=== PATIENT | male | born 1935 | race Caucasian/White ===

== ENCOUNTER 2019-10-02 15:51 | Inpatient (IN) | payer OTHER, MEDICARE ==
--- NOTE | 2019-10-02 16:32 | RADIOLOGY REPORT (SQ) ---
EXAM DESCRIPTION: CHEST SINGLE VIEW COMPLETED DATE/TIME: 10/02/2019 4:14 pm REASON FOR STUDY: bed 16 db COMPARISON: 05/25/2009 EXAM PARAMETERS: NUMBER OF VIEWS: One view. TECHNIQUE: Single frontal radiographic view of the chest acquired. RADIATION DOSE: NA LIMITATIONS: None. FINDINGS: LUNGS AND PLEURA: Right pleural effusion. MEDIASTINUM AND HILAR STRUCTURES: No masses. Contour normal. HEART AND VASCULAR STRUCTURES: Cardiomegaly. No sudeep pulmonary edema. BONES: No acute findings. HARDWARE: None in the chest. OTHER: No other significant finding. IMPRESSION: Cardiomegaly without pulmonary edema. Small right pleural effusion. TECHNICAL DOCUMENTATION: JOB ID: [id number] [employer]- All Rights Reserved Reading location - IP/workstation name: [email or web address]
[2019-10-02] MEDS ORDERED: DILTIAZEM HCL INJ 25 MG/5 ML VIAL IV ONE ×2 (16:38→17:49)
--- NOTE | 2019-10-02 16:42 | ER Document Report ---
ED Respiratory Problem - General Chief Complaint: Breathing Difficulty Stated Complaint: SHORTNESS OF BREATH Time Seen by Provider: 10/02/19 16:24 Mode of Arrival: Medic Information source: Patient Notes: Mr. Sepulveda is a 84 yo m w/ PMH atrial fibrillation diagnosed in the past few months brought in by EMS for shortness of breath. Patient states that his shortness of breath has been ongoing over the past 2 to 4 weeks but worsening. He states just leaning forward to turn his fan on or minimal walking between his bedroom in the kitchen will cause him severe respiratory distress. He states he is currently taking p.o. aspirin only for his atrial fibrillation which was only recently diagnosed. His last stress test was over a year ago. He denies any chest pain. He denies any cough to me however he did endorse EMS that he has been spitting up pink frothy sputum. Patient denies any fevers or chills. He denies any abdominal pain, nausea or vomiting. He does endorse some intermitt ent dizziness. Per EMS, the patient is supposed to be on Eliquis however he has been noncompliant. Patient states he takes 2 aspirins daily and a multivitamin. He is unclear whether it is a baby aspirin or full dose. He denies any other medical problems. Patient endorses lower extremity edema that is been going on and unchanged over the past several months. He denies any orthopnea. Per nurs e, on EMSs arrival, the patient was 76% on room air. TRAVEL OUTSIDE OF THE [place] IN LAST 30 DAYS: No - Related Data Allergies/Adverse Reactions: No Known Allergies Allergy (Unverified 04/12/15 11:16) Past Medical History - General Information source: Patient - Social History Smoking Status: Former Smoker Family History: Reviewed & Not Pertinent - Past Medical History Cardiac Medical History: Reports: Hx Atrial Fibrillation Denies: Hx Heart Attack, Hx Hypertension Pulmonary Medical History: Denies: Hx Asthma Neurological Medical History: Denies: Hx Cerebrovascular Accident, Hx Seizures Renal/ Medical History: Denies: Hx Peritoneal Dialysis GI Medical History: Denies: Hx Hepatitis, Hx Hiatal Hernia, Hx Ulcer Infectious Medical History: Denies: Hx Hepatitis Past Surgical History: Denies: Hx Open Heart Surgery, Hx Pacemaker Review of Systems - Review of Systems Constitutional: See HPI EENT: No symptoms reported Cardiovascular: See HPI Respiratory: See HPI Gastrointestinal: No symptoms reported Genitourinary: No symptoms reported Male Genitourinary: No symptoms reported Musculoskeletal: No symptoms reported Skin: No symptoms reported Hematologic/Lymphatic: No symptoms reported Neurological/Psychological: No symptoms reported Physical Exam - Vital signs Vitals: Temp Resp BP Pulse Ox 97.7 F 21 H 110/85 96 10/02/19 16:03 10/02/19 16:03 10/02/19 16:03 10/02/19 16:03 Interpretation: Tachycardic, Tachypneic - General General appearance: Appears well, Alert - HEENT Head: Normocephalic, Atraumatic Eyes: Normal Pupils: PERRL - Respiratory Respiratory status: No respiratory distress Chest status: Nontender Breath sounds: Normal Chest palpation: Normal - Cardiovascular Rhythm: Regular Heart sounds: Normal auscultation Murmur: No - Abdominal Inspection: Normal Distension: No distension Bowel sounds: Normal Tenderness: Nontender Organomegaly: No organomegaly - Back Back: Normal, Nontender - Extremities General upper extremity: Normal inspection, Nontender, Normal color, Normal ROM, Normal temperature General lower extremity: Normal inspection, Nontender, Normal color, Normal ROM, Normal temperature, Normal weight bearing. No: Cody's sign - Neurological Neuro grossly intact: Yes Cognition: Normal Orientation: AAOx4 Sha Coma Scale Eye Opening: Spontaneous Sha Coma Scale Verbal: Oriented Reserve Coma Scale Motor: Obeys Commands Sha Coma Scale Total: 15 Speech: Normal Motor strength normal: LUE, RUE, LLE, RLE Sensory: Normal - Psychological Associated symptoms: Normal affect, Normal mood - Skin Skin Temperature: Warm - Cool bilateral hands and feet. Normal cap refill and pulses. Skin Moisture: Dry Skin Color: Normal Location of irregularity: Extremities Character of irregularity: Symmetric Irregularity with: Swelling - 2+ pitting edema bilaterally to the knee. 3+ to dorsal foot and ankle. No warmth, erythema or induration appreciated. Course - Re-evaluation Re-evalutation: Patient is generally well-appearing nontoxic. Initial vitals notable for tachycardia as well as tachypnea. Differential diagnosis includes atrial fibrillation with RVR, dehydration, electrolyte abnormality, CHF exacerbation, volume overload, ACS 10/02/19 16:54 Patient ordered for diltiazem 10 mg IV push for atrial fibrillation with RVR. 10/02/19 17:00 Given patient's lower extremity edema, patient likely needs further diuresis, e specially with a complaint of frothy pink sputum production at home and increased dyspnea with exertion. 10/02/19 17:30 Troponin is positive at 0.78. He has not taken any aspirin today. Patient ord ered for full dose chewable aspirin here in the ED. Patient also appears clinically volume overloaded with lower extremity edema and cardiomegaly on chest x-ray. Patient ordered for Lasix 20 mg IV push as he is Lasix aisha. Patient's CK and CK-MB are both slightly elevated. Patient also has an elevated total bili and direct bili. This is all likely related to third spacing. Patient has probably been in A. fib with RVR ongoing for the past 2 weeks. Patient ordered for second dose of diltiazem. 10/02/19 17:[address] Odell, would like Dr. Cain consulted. 10/02/19 18:00 Dr. Cain is aware of the patient. States he is noncompliant with medications. Recommended the patient be initiated on a diltiazem drip should the second dose diltiazem not be sufficient. Spoke to Dr. Odell. Will admit to [facility], [place]. - Vital Signs Vital signs: Temp Pulse Resp BP Pulse Ox 97.7 F 127 H 21 H 110/85 96 10/02/19 16:39 10/02/19 18:04 10/02/19 16:39 10/02/19 16:39 10/02/19 16:39 - Laboratory Result Diagrams: 10/02/19 16:24 10/02/19 16:24 Laboratory results interpreted by me: 10/02/19 10/02/19 10/02/19 16:24 16:24 16:24 Hgb 10.8 L Hct 36.2 L MCV 76 L MCH 22.5 L MCHC 29.7 L RDW 19.8 H Seg Neuts % (Manual) 92 H Lymphocytes % (Manual) 4 L Abs Neuts (Manual) 8.9 H Abs Lymphs (Manual) 0.4 L Potassium 5.6 H Carbon Dioxide 20 L BUN 37 H Creatinine 1.33 H Est GFR (MDRD) Non-Af 51 L Total Bilirubin 3.8 H Direct Bilirubin 1.3 H AST 673 H Creatine Kinase 241 H CK-MB (CK-2) 12.10 H NT-Pro-B Natriuret Pep 10/02/19 16:24 Hgb Hct MCV MCH MCHC RDW Seg Neuts % (Manual) Lymphocytes % (Manual) Abs Neuts (Manual) Abs Lymphs (Manual) Potassium Carbon Dioxide BUN Creatinine Est GFR (MDRD) Non-Af Total Bilirubin Direct Bilirubin AST Creatine Kinase CK-MB (CK-2) NT-Pro-B Natriuret Pep 08148 H - EKG Interpretation by Me EKG shows normal: [place] Rate: Tachycardia Rhythm: A.Fib [place]/QRS: RBBB, IVCD Additional EKG results interpreted by me: 10/02/19 17:02 T wave inversions in leads II, III, aVF, V1 and V3. 10/02/19 17:03 This was from the EKG performed at 1612 with a rate of 113. Repeated the EKG when I evaluated the patient at 1633 and the rate was ranging from low 100s to 144 while I was in the room. Patient appears to be in atrial fibrillation with RVR. QRS is widened. Critical Care Note - Critical Care Note Total time excluding time spent on procedures (mins): 40 - Multiple reassessments, discussion with cardiology as well as hospitalist, repeat dosing of diltiazem and repeat EKGs, have discussion with both patient and his family guarding his end STEMI, CHF exacerbation and A. fib with RVR. Discharge - Discharge Clinical Impression: Atrial fibrillation with rapid ventricular response, Noncompliance with medication regimen, Hypoxia, Dyspnea on minimal exertion, NSTEMI (non-ST elevated myocardial infarction) Disposition: ADMITTED INPATIENT Admitting Provider: Cass (Hospitalist) Unit Admitted: [facility], [place]
[2019-10-02 16:59] LABS: ALBUMIN 4.3 g/dL (3.5-5.0); ALKALINE PHOSPHATASE 97 U/L (38-126); ANION GAP 17 (5-19); ASPARTATE AMINO TRANSFERASE 673 U/L (17-59); BILIRUBIN,DIRECT 1.3 mg/dL (0.0-0.4); BILIRUBIN,TOTAL 3.8 mg/dL (0.2-1.3); BLOOD UREA NITROGEN 37 mg/dL (7-20); CALCIUM 9.8 mg/dL (8.4-10.2); CARBON DIOXIDE 20 mmol/L (22-30); CHLORIDE 101 mmol/L (98-107); CREATINE KINASE 241 U/L (55-170); GLUCOSE 100 mg/dL (75-110); POTASSIUM 5.6 mmol/L (3.6-5.0); TOTAL PROTEIN 7.6 g/dL (6.3-8.2)
[2019-10-02 17:00] LABS: HEMATOCRIT 36.2 % (37.9-51.0); HEMOGLOBIN 10.8 g/dL (13.5-17.0); MEAN CORPUSCULAR HEMOGLOBIN 22.5 pg (27.0-33.4); MEAN CORPUSCULAR HGB CONC 29.7 g/dL (32.0-36.0); MEAN CORPUSCULAR VOLUME 76 fl (80-97); PLATELET COUNT 219 10^3/uL (150-450); RED BLOOD COUNT 4.79 10^6/uL (4.35-5.55); RED CELL DISTRIBUTION WIDTH 19.8 % (11.5-14.0); WHITE BLOOD COUNT 9.7 10^3/uL (4.0-10.5)
[2019-10-02 17:11] LABS: CREATINE KINASE MB 12.1 ng/mL (<4.55)
[2019-10-02 17:20] LABS: ABSOLUTE LYMPHOCYTES# (MANUAL) 0.4 10^3/uL (0.5-4.7); ABSOLUTE MONOCYTES # (MANUAL) 0.4 10^3/uL (0.1-1.4); BASOPHILS % (MANUAL) 0 % (0-2); EOSINOPHILS % (MANUAL) 0 % (0-6); LYMPHOCYTES % (MANUAL) 4 % (13-45); MONOCYTES % (MANUAL) 4 % (3-13); NUCLEATED RED BLOOD CELLS 7 /100 WBC (0); SEGMENTED NEUTROPHILS % (MAN) 92 % (42-78); TOTAL CELLS COUNTED 100
[2019-10-02 17:23] LABS: TROPONIN I 0.78 ng/mL
[2019-10-02 17:27] LABS: ANISOCYTOSIS 2+; HYPOCHROMASIA SLIGHT; PLATELET COMMENT ADEQUATE; TEAR DROP CELLS SLIGHT
[2019-10-02] MEDS ORDERED: ASPIRIN 81 MG TABLET, CHEWABLE PO ONE (17:27)
[2019-10-02] MEDS ORDERED: FUROSEMIDE INJ/PF 20 MG/2 ML SDV IV ONE (17:41)
--- NOTE | 2019-10-02 18:34 | PDOC H&P ---
History of Present Illness Admission Date/PCP: 10/02/19 18:14 [facility] Patient complains of: SOB, palpitations History of Present Illness: JUANY OLIVERA is a 84 year old male with a past medical history of hypertension, history of neck cancer, chronic atrial fibrillation with noncompliance of medications and mitral regurgitation who presented with shortness of breath palpitations. Patient says that he has been having increasing shortness of breath for more than 2 weeks now. He did report of associated palpitations. He denies chest pain. He did report that he was getting more dizzy and short of breath when he ambulated at home. He does report of having bipedal edema in the past 2 weeks. In the ER, he was noted to be in A. fib with RVR with a heart rate in the 140s. He was given 2 doses of IV Cardizem push. Upon encounter, heart rate has impr justyn down to 102 after IV Cardizem. Patient was prescribed Eliquis and metoprolol by Dr. Cain before. He has known noncompliance to medications. When further probed, he appears to have poor understanding of the necessity of these 2 medications. He also reports that he had a lot of side effects from the medications from a TV ad for Eliquis hence was concerned about taking it. We rediscussed in great ength the importance of heart rate control and anticoagulation and atrial relation for stroke prevention. Also discussed the risk and benefits of blood thinners including the risk of bleeding. He verbalized understanding and expressed he is agreeable to being restarted on anticoagulation. Past Medical History Cardiac Medical History: Reports: Atrial Fibrillation Denies: Myocardial Infarction, Hypertension Pulmonary Medical History: Denies: Asthma Neurological Medical History: Denies: Seizures GI Medical History: Denies: Hepatitis, Hiatal Hernia Hematology: Denies: Anemia, Sickle Cell Disease Past Surgical History Past Surgical History: Denies: Pacemaker Social History Smoking Status: Never Smoker Frequency of Alcohol Use: None Hx Recreational Drug Use: No Hx Prescription Drug Abuse: No Family History Family History: Reviewed & Not Pertinent Parental Family History Reviewed: Yes - No premature CAD Children Family History Reviewed: No Sibling(s) Family History Reviewed.: No Medication/Allergy Home Medications: Aspirin/Caffeine [Edith Back & Body Caplet] 1 tab-cap PO DAILY 10/02/19 Multivit-Min/Folic/Vit K/Lycop [One-A-Day Men's 50+ Tablet] 1 each PO DAILY 10/02/19 Allergies/Adverse Reactions: No Known Allergies Allergy (Unverified 04/12/15 11:16) Review of Systems All systems: reviewed and no additional remarkable complaints except as stated - As mentioned in HPI Physical Exam Vital Signs: Temp Pulse Resp BP Pulse Ox 97.7 F 127 H 21 H 110/85 96 10/02/19 16:39 10/02/19 18:04 10/02/19 16:39 10/02/19 16:39 10/02/19 16:39 Intake & Output 10/01/19 10/02/19 10/03/19 06:59 06:59 06:59 Weight 231 lb 11.293 oz General appearance: PRESENT: no acute distress, well-developed, well-nourished Head exam: PRESENT: atraumatic, normocephalic Eye exam: PRESENT: conjunctiva pink, EOMI, PERRLA. ABSENT: scleral icterus Ear exam: PRESENT: normal external ear exam Mouth exam: PRESENT: moist, tongue midline Neck exam: ABSENT: carotid bruit, JVD, lymphadenopathy, thyromegaly Respiratory exam: PRESENT: clear to auscultation vasile. ABSENT: rales, rhonchi, wheezes Cardiovascular exam: PRESENT: irregular rhythm, tachycardia Pulses: PRESENT: normal dorsalis pedis pul GI/Abdominal exam: PRESENT: normal bowel sounds, soft. ABSENT: distended, guarding, mass, organolmegaly, rebound, tenderness Rectal exam: PRESENT: deferred Extremities exam: PRESENT: +2 edema Neurological exam: PRESENT: alert, awake, oriented to person, oriented to place, oriented to time, oriented to situation, CN II-XII grossly intact. ABSENT: motor sensory deficit Results Laboratory Results: 10/02/19 16:24 10/02/19 16:24 10/02/19 10/02/19 16:24 16:24 WBC 9.7 RBC 4.79 Hgb 10.8 L Hct 36.2 L MCV 76 L MCH 22.5 L MCHC 29.7 L RDW 19.8 H Plt Count 219 Seg Neutrophils % Not Reportable Sodium 138.2 Potassium 5.6 H Chloride 101 Carbon Dioxide 20 L Anion Gap 17 BUN 37 H Creatinine 1.33 H Est GFR ( Amer) > 60 Glucose 100 Calcium 9.8 Total Bilirubin 3.8 H AST 673 H Alkaline Phosphatase 97 Total Protein 7.6 Albumin 4.3 10/02/19 10/02/19 16:24 16:24 Creatine Kinase 241 H CK-MB (CK-2) 12.10 H Troponin I 0.780 Impressions: Chest X-Ray 10/02/19 15:53 IMPRESSION: Cardiomegaly without pulmonary edema. Small right pleural effusion. Assessment and Plan - Diagnosis (1) Atrial fibrillation with rapid ventricular response Is this a current diagnosis for this admission?: Yes Plan: Patient presented with a heart rate in the 140s. He was given 2 doses of IV Cardizem pushes. Heart rate is now improved down to 102. Patient has not been compliant with his metoprolol and Eliquis. He only takes a baby aspirin at home. We will restart him on metoprolol. Start Cardizem drip if he develops persistent RVR. As mentioned, we discussed in great length the risk and benefits of anticoagulation and he has agreed to being restarted on Eliquis. Check TSH. (2) Hypertension Is this a current diagnosis for this admission?: Yes (3) Noncompliance with medication regimen Is this a current diagnosis for this admission?: Yes (4) BEVERLY (acute kidney injury) Is this a current diagnosis for this admission?: Yes Plan: Creatinine is up to 1.3 from previous baseline of 0.8. Repeat BMP tomorrow. He was given 20 mg of Lasix in the ER. He has 2+ bipedal edema. Hold off on fluids for now. (5) Elevated troponin Is this a current diagnosis for this admission?: Yes Plan: Likely demand, related to A. fib with RVR. He denies chest pain. Reviewed previous EKGs. EKG changes are chronic and unchanged from previous EKG. - Time Time Spent with patient: 25-34 minutes
--- NOTE | 2019-10-02 18:38 | ADVANCED CARE ---
- Diagnosis (1) Atrial fibrillation with rapid ventricular response Diagnosis Current: Yes (2) BEVERLY (acute kidney injury) Diagnosis Current: Yes (3) Elevated troponin Diagnosis Current: Yes (4) Hypertension Diagnosis Current: Yes (5) Noncompliance with medication regimen Diagnosis Current: Yes Resuscitation Status: Full Code Discussion: Discussed with patient. He says he is a full code and prefers to receive chest compressions, defibrillation or mechanical ventilation if the need arises. He says that his , Thelma Sepulveda is his surrogate medical decision maker.
--- NOTE | 2019-10-02 19:16 | EKG REPORT ---
SEVERITY:- ABNORMAL ECG - ATRIAL FIBRILLATION, V-RATE 75-144 RIGHT BUNDLE BRANCH BLOCK : Confirmed by: Kassidy Robledo MD 02-Oct-2019 19:14:02
--- NOTE | 2019-10-02 19:16 | EKG REPORT ---
SEVERITY:- ABNORMAL ECG - ATRIAL FIBRILLATION, V-RATE 76-144 NONSPECIFIC INTRAVENTRICULAR CONDUCTION DELAY MINIMAL ST DEPRESSION, DIFFUSE LEADS : Confirmed by: Kassidy Robledo MD 02-Oct-2019 19:14:08
[2019-10-02] MEDS: METOPROLOL TARTRATE 25 MG TABLET PO SCH (19:28)
[2019-10-02 19:54] LABS: APPEARANCE,URINE SLIGHTLY-CLOUDY; BILIRUBIN,URINE NEGATIVE (NEGATIVE); COLOR,URINE AMBER; GLUCOSE, URINE NEGATIVE (NEGATIVE); KETONES,URINE NEGATIVE (NEGATIVE); LEUKOCYTE ESTERASE,URINE NEGATIVE (NEGATIVE); NITRITE,URINE NEGATIVE (NEGATIVE); PROTEIN,URINE 30 mg/dL (NEGATIVE); URINE SPECIFIC GRAVITY 1.018
[2019-10-03] MEDS: METOPROLOL TARTRATE 25 MG TABLET PO SCH ×2 (05:29→18:14)
[2019-10-03] MEDS: FUROSEMIDE 20 MG TABLET PO SCH (10:07)
[2019-10-03] MEDS: APIXABAN 2.5 MG TABLET PO SCH ×2 (10:07→18:14)
--- NOTE | 2019-10-03 14:12 | PDOC PROGRESS REPORT ---
Subjective Progress Note for:: 10/03/19 Subjective:: This is an 84-year-old male who was admitted with Bee khan with RVR. Patient did respond well to 2 doses of IV Cardizem in the ER. He was restarted on his metoprolol. No acute event overnight. Heart rate has been Heart rate has been controlled in the 70s to 80s. He says that his shortness of breath has improved this morning but still not at his baseline. He denies chest pain. He says that he has moderately productive cough with greenish sputum today. He says his leg edema and tightness have slightly improved. Reason For Visit: AFIB W/ RVR Physical Exam Vital Signs: Temp Pulse Resp BP Pulse Ox 97.5 F 70 17 103/60 100 10/03/19 11:51 10/03/19 11:51 10/03/19 11:51 10/03/19 11:51 10/03/19 11:51 Intake & Output 10/02/19 10/03/19 10/04/19 06:59 06:59 06:59 Output Total 0 Balance 0 Weight 229 lb 4.492 oz General appearance: PRESENT: no acute distress, well-developed, well-nourished Head exam: PRESENT: atraumatic, normocephalic Eye exam: PRESENT: conjunctiva pink, EOMI, PERRLA. ABSENT: scleral icterus Ear exam: PRESENT: normal external ear exam Mouth exam: PRESENT: moist, tongue midline Neck exam: ABSENT: carotid bruit, JVD, lymphadenopathy, thyromegaly Respiratory exam: PRESENT: clear to auscultation vasile. ABSENT: rales, rhonchi, w heezes Cardiovascular exam: PRESENT: irregular rhythm. ABSENT: tachycardia Pulses: PRESENT: normal dorsalis pedis pul GI/Abdominal exam: PRESENT: normal bowel sounds, soft. ABSENT: distended, guarding, mass, organolmegaly, rebound, tenderness Rectal exam: PRESENT: deferred Extremities exam: PRESENT: +2 edema Neurological exam: PRESENT: alert, awake, oriented to person, oriented to place, oriented to time, oriented to situation, CN II-XII grossly intact. ABSENT: motor sensory deficit Results Laboratory Results: 10/02/19 16:24 10/02/19 16:24 10/02/19 10/02/19 10/02/19 16:24 16:24 16:24 WBC 9.7 RBC 4.79 Hgb 10.8 L Hct 36.2 L MCV 76 L MCH 22.5 L MCHC 29.7 L RDW 19.8 H Plt Count 219 Seg Neutrophils % Not Reportable Sodium 138.2 Potassium 5.6 H Chloride 101 Carbon Dioxide 20 L Anion Gap 17 BUN 37 H Creatinine 1.33 H Est GFR ( Amer) > 60 Glucose 100 Calcium 9.8 Total Bilirubin 3.8 H AST 673 H Alkaline Phosphatase 97 Total Protein 7.6 Albumin 4.3 TSH 4.65 Urine Color Urine Appearance Urine pH Ur Specific [place] Urine Protein Urine Glucose (UA) Urine Ketones Urine Blood Urine Nitrite Ur Leukocyte Esterase Urine WBC (Auto) Urine RBC (Auto) 10/02/19 19:38 WBC RBC Hgb Hct MCV MCH MCHC RDW Plt Count Seg Neutrophils % Sodium Potassium Chloride Carbon Dioxide Anion Gap BUN Creatinine Est GFR ( Amer) Glucose Calcium Total Bilirubin AST Alkaline Phosphatase Total Protein Albumin TSH Urine Color DARBY Urine Appearance SLIGHTLY-CLOUDY Urine pH 5.0 Ur Specific [place] 1.018 Urine Protein 30 H Urine Glucose (UA) NEGATIVE Urine Ketones NEGATIVE Urine Blood NEGATIVE Urine Nitrite NEGATIVE Ur Leukocyte Esterase NEGATIVE Urine WBC (Auto) 1 Urine RBC (Auto) 1 10/02/19 10/02/19 10/02/19 16:24 16:24 16:24 Creatine Kinase 241 H CK-MB (CK-2) 12.10 H Troponin I 0.780 NT-Pro-B Natriuret Pep 43277 H Impressions: Chest X-Ray 10/02/19 15:53 IMPRESSION: Cardiomegaly without pulmonary edema. Small right pleural effusion. Assessment and Plan - Diagnosis (1) Atrial fibrillation with rapid ventricular response Is this a current diagnosis for this admission?: Yes Plan: 10/02: Patient presented with a heart rate in the 140s. He was given 2 doses of IV Cardizem pushes. Heart rate is now improved down to 102. Patient has not been compliant with his metoprolol and Eliquis. He only takes a baby aspirin at home. We will restart him on metoprolol. Start Cardizem drip if he develops persistent RVR. As mentioned, we discussed in great length the risk and benefits of anticoagulation and he has agreed to being restarted on Eliquis. Check TSH. 10/03: Rate controlled. He remains in A. fib. Continue metoprolol. Resumed on Eliquis. Will pursue a VQ scan as well to assess for PE. (2) BEVERLY (acute kidney injury) Is this a current diagnosis for this admission?: Yes Plan: Repeat BMP. (3) Hypertension Is this a current diagnosis for this admission?: Yes (4) Noncompliance with medication regimen Is this a current diagnosis for this admission?: Yes Plan: Counseled in length. (5) Elevated troponin Is this a current diagnosis for this admission?: Yes Plan: Likely demand, related to A. fib with RVR. He denies chest pain. Reviewed previous EKGs. EKG changes are chronic and unchanged from previous EKG. - Time Time Spent with patient: 25-34 minutes
[2019-10-03 16:11] LABS: BLOOD UREA NITROGEN 53 mg/dL (7-20); CALCIUM 9.7 mg/dL (8.4-10.2); GLUCOSE 102 mg/dL (75-110); POTASSIUM 5.9 mmol/L (3.6-5.0)
[2019-10-03 16:17] LABS: CARBON DIOXIDE 17 mmol/L (22-30); CHLORIDE 98 mmol/L (98-107)
[2019-10-03 16:33] LABS: ANION GAP 21 (5-19)
--- NOTE | 2019-10-03 17:11 | RADIOLOGY REPORT (SQ) ---
EXAM DESCRIPTION: NM LUNG VENT/PERF SCAN COMPLETED DATE/TIME: 10/03/2019 2:29 pm REASON FOR STUDY: shortness or breath, hypoxia COMPARISON: None. RADIONUCLIDE AND DOSE: 5 millicuries TC-99m MAA Intravenous 30 millicuries TC-99m DTPA Inhaled aerosol TECHNIQUE: Eight views of the lungs acquired post ventilation of DTPA aerosol. Eight matching views of the lungs acquired following injection of MAA. LIMITATIONS: None. FINDINGS: VENTILATION: Symmetric and homogeneous distribution of DTPA aerosol during ventilatory pha se. No significant areas of photopenia. PERFUSION: There is several very small peripheral areas of decreased perfusion in each lung. OTHER: No other significant finding. IMPRESSION: Several small areas of decreased perfusion are seen peripherally in each lung. Intermed iate probability of pulmonary embolus. TECHNICAL DOCUMENTATION: JOB ID: [id number] [email or web address] All Rights Reserved Reading location - IP/workstation name: [email or web address]
[2019-10-03] MEDS ORDERED: METOPROLOL TARTRATE PF/INJ 5 MG/5 ML SDV IV ONE (19:49)
[2019-10-03] MEDS: ASPIRIN 325 MG TABLET PO SCH (21:58)
[2019-10-03 23:28] LABS: TROPONIN I 1.4 ng/mL
--- NOTE | 2019-10-03 23:59 | EKG REPORT ---
SEVERITY:- ABNORMAL ECG - ATRIAL FIBRILLATION MINIMAL ST DEPRESSION, INFERIOR LEADS RIGHT BUNDLE BRANCH BLOCK : Confirmed by: Kassidy Robledo MD 03-Oct-2019 23:58:35
[2019-10-04] MEDS: METOPROLOL TARTRATE 25 MG TABLET PO SCH ×2 (05:21→17:17)
[2019-10-04 05:50] LABS: CREATINE KINASE MB 17.9 ng/mL (<4.55); TROPONIN I 1.13 ng/mL
[2019-10-04] MEDS ORDERED: HEPARIN SODIUM,PORCINE/D5W 25,000 UNIT/250 ML RTUINJ IV PRN (08:05)
[2019-10-04] MEDS ORDERED: HEPARIN SOD (PORCINE) 1,000 UNIT/ML 10 ML VIAL IV ONE (08:30)
[2019-10-04] MEDS ORDERED: SODIUM POLYSTYRENE SULFONATE 15 GM/60 ML PO ONE (08:30)
[2019-10-04 08:51] LABS: HEMATOCRIT 35.1 % (37.9-51.0); HEMOGLOBIN 10.5 g/dL (13.5-17.0); MEAN CORPUSCULAR HEMOGLOBIN 22.5 pg (27.0-33.4); MEAN CORPUSCULAR HGB CONC 29.9 g/dL (32.0-36.0); MEAN CORPUSCULAR VOLUME 75 fl (80-97); PLATELET COUNT 152 10^3/uL (150-450); RED BLOOD COUNT 4.67 10^6/uL (4.35-5.55); RED CELL DISTRIBUTION WIDTH 20.1 % (11.5-14.0)
[2019-10-04 09:01] LABS: INTERNATIONAL RATION (INR) 3.69; PROTHROMBIN TIME 37.5 SEC (11.4-15.4)
[2019-10-04 09:02] LABS: PARTIAL THROMBOPLASTIN TIME 41.4 SEC (23.5-35.8)
[2019-10-04 09:07] LABS: ANION GAP 13 (5-19); BLOOD UREA NITROGEN 65 mg/dL (7-20); CALCIUM 9.2 mg/dL (8.4-10.2); CARBON DIOXIDE 24 mmol/L (22-30); CHLORIDE 99 mmol/L (98-107); GLUCOSE 75 mg/dL (75-110); POTASSIUM 5.7 mmol/L (3.6-5.0)
[2019-10-04] MEDS ORDERED: ACETAMINOPHEN 325 MG TABLET PO PRN (09:13)
[2019-10-04 09:17] LABS: ABSOLUTE LYMPHOCYTES# (MANUAL) 0.6 10^3/uL (0.5-4.7); BASOPHILS % (MANUAL) 0 % (0-2); EOSINOPHILS % (MANUAL) 1 % (0-6); LYMPHOCYTES % (MANUAL) 5 % (13-45); MONOCYTES % (MANUAL) 0 % (3-13); NUCLEATED RED BLOOD CELLS 10 /100 WBC (0); POLYCHROMASIA SLIGHT; SEGMENTED NEUTROPHILS % (MAN) 94 % (42-78); TOTAL CELLS COUNTED 100
[2019-10-04 09:18] LABS: ANISOCYTOSIS 2+; HYPOCHROMASIA SLIGHT; PLATELET COMMENT ADEQUATE
[2019-10-04 09:33] LABS: APPEARANCE,URINE SLIGHTLY-CLOUDY; BILIRUBIN,URINE NEGATIVE (NEGATIVE); GLUCOSE, URINE NEGATIVE (NEGATIVE); KETONES,URINE NEGATIVE (NEGATIVE); LEUKOCYTE ESTERASE,URINE NEGATIVE (NEGATIVE); NITRITE,URINE NEGATIVE (NEGATIVE); PROTEIN,URINE NEGATIVE (NEGATIVE); URINE SPECIFIC GRAVITY 1.014
[2019-10-04 09:34] LABS: COLOR,URINE YELLOW
[2019-10-04] MEDS: FUROSEMIDE 20 MG TABLET PO SCH (09:51)
[2019-10-04] MEDS: ASPIRIN 325 MG TABLET PO SCH (09:52)
[2019-10-04] MEDS: AZITHROMYCIN 250 MG TABLET PO SCH (09:52)
[2019-10-04] MEDS ORDERED: HEPARIN SOD (PORCINE) 1,000 UNIT/ML 10 ML VIAL IV PRN (11:05)
--- NOTE | 2019-10-04 12:20 | PDOC PROGRESS REPORT ---
Subjective Progress Note for:: 10/04/19 Subjective:: This is an 84-year-old male who was admitted with A. fib with RVR. Patient did respond well to 2 doses of IV Cardizem in the ER. He was restarted on his metoprolol. 10/03: No acute event overnight. Heart rate has been controlled in the 70s to 80s. He says that his shortness of breath has improved this morning but still not at his baseline. He denies chest pain. He says that he has moderately productive cough with greenish sputum today. He says his leg edema and tightness have slightly improved. 10/04: No acute event overnight. He remains rate controlled. his VQ scan did show possible PE. His troponins did trend up. He appears comfortable and says he feels better today. He reports that his shortness of breath continue to improve. He denies chest pain. Started on heparin drip. Plan to switch later to a full dose Eliquis for his PE and A. fib. Reason For Visit: AFIB W/ RVR Physical Exam Vital Signs: Temp Pulse Resp BP Pulse Ox 981 F H 57 L 17 90/70 L 100 10/04/19 08:22 10/04/19 07:45 10/04/19 07:45 10/04/19 07:45 10/04/19 07:45 Intake & Output 10/03/19 10/04/19 10/05/19 06:59 06:59 06:59 Intake Total 840 Output Total 0 102 Balance 0 738 Weight 229 lb 4.492 oz 233 lb 11.04 oz General appearance: PRESENT: no acute distress, well-developed, well-nourished Head exam: PRESENT: atraumatic, normocephalic Eye exam: PRESENT: conjunctiva pink, EOMI, PERRLA. ABSENT: scleral icterus Ear exam: PRESENT: normal external ear exam Mouth exam: PRESENT: moist, tongue midline Neck exam: ABSENT: carotid bruit, JVD, lymphadenopathy, thyromegaly Respiratory exam: PRESENT: clear to auscultation vasile. ABSENT: rales, rhonchi, wheezes Cardiovascular exam: PRESENT: RRR. ABSENT: diastolic murmur, rubs, systolic murmur Pulses: PRESENT: normal dorsalis pedis pul GI/Abdominal exam: PRESENT: normal bowel sounds, soft. ABSENT: distended, guarding, mass, organolmegaly, rebound, tenderness Rectal exam: PRESENT: deferred Extremities exam: PRESENT: +2 edema Neurological exam: PRESENT: alert, awake, oriented to person, oriented to place, oriented to time, oriented to situation, CN II-XII grossly intact. ABSENT: motor sensory deficit Results Laboratory Results: 10/04/19 08:39 10/04/19 08:39 10/03/19 10/04/19 10/04/19 14:47 08:39 08:39 WBC 11.0 H RBC 4.67 Hgb 10.5 L Hct 35.1 L MCV 75 L MCH 22.5 L MCHC 29.9 L RDW 20.1 H Plt Count 152 Seg Neutrophils % Not Reportable Sodium 136.0 L 135.5 L Potassium 5.9 H 5.7 H Chloride 98 99 Carbon Dioxide 17 L 24 Anion Gap 21 H 13 BUN 53 H 65 H Creatinine 2.01 H 2.10 H Est GFR ( Amer) 38 L 36 L Glucose 102 75 Calcium 9.7 9.2 Urine Color Urine Appearance Urine pH Ur Specific [place] Urine Protein Urine Glucose (UA) Urine Ketones Urine Blood Urine Nitrite Ur Leukocyte Esterase Urine WBC (Auto) 10/04/19 09:00 WBC RBC Hgb Hct MCV MCH MCHC RDW Plt Count Seg Neutrophils % Sodium Potassium Chloride Carbon Dioxide Anion Gap BUN Creatinine Est GFR ( Amer) Glucose Calcium Urine Color YELLOW Urine Appearance SLIGHTLY-CLOUDY Urine pH 5.0 Ur Specific [place] 1.014 Urine Protein NEGATIVE Urine Glucose (UA) NEGATIVE Urine Ketones NEGATIVE Urine Blood NEGATIVE Urine Nitrite NEGATIVE Ur Leukocyte Esterase NEGATIVE Urine WBC (Auto) 0 10/02/19 10/02/19 10/02/19 16:24 16:24 16:24 Creatine Kinase 241 H CK-MB (CK-2) 12.10 H Troponin I 0.780 NT-Pro-B Natriuret Pep 70963 H 10/03/19 10/03/19 10/03/19 17:10 22:44 22:44 Creatine Kinase 625 H CK-MB (CK-2) 20.00 H Troponin I 1.510 1.400 NT-Pro-B Natriuret Pep 10/04/19 10/04/19 04:10 04:10 Creatine Kinase 559 H CK-MB (CK-2) 17.90 H Troponin I 1.130 NT-Pro-B Natriuret Pep Impressions: Chest X-Ray 10/02/19 15:53 IMPRESSION: Cardiomegaly without pulmonary edema. Small right pleural effusion. Lung Scan-VQ NM 10/03/19 00:00 IMPRESSION: Several small areas of decreased perfusion are seen peripherally in each lung. Intermediate probability of pulmonary embolus. Assessment and Plan - Diagnosis (1) Atrial fibrillation with rapid ventricular response Is this a current diagnosis for this admission?: Yes Plan: [place] rate controlled. Continue metoprolol. Started on heparin drip for PE as well. Plan to switch back to Eliquis prior to discharge. (2) [place] (acute kidney injury) Is this a current diagnosis for this admission?: Yes Plan: Hold off on Lasix for now. (3) Hypertension Is this a current diagnosis for this admission?: Yes (4) Noncompliance with medication regimen Is this a current diagnosis for this admission?: Yes Plan: Counseled in length. (5) Elevated troponin Is this a current diagnosis for this admission?: Yes Plan: Likely demand, related to A. fib with RVR and pulmonary embolism. He denies chest pain. Reviewed previous EKGs. EKG changes are chronic and unchanged from previous EKG. - Time Time Spent with patient: 25-34 minutes
[2019-10-04 13:08] LABS: CREATINE KINASE MB 22.1 ng/mL (<4.55); TROPONIN I 0.866 ng/mL
--- NOTE | 2019-10-04 13:33 | RADIOLOGY REPORT (SQ) ---
EXAM DESCRIPTION: CT SOFT TISSUE NECK WITHOUT COMPLETED DATE/TIME: 10/04/2019 11:31 am REASON FOR STUDY: Evaluate production of mucous, hx of neck cancer COMPARISON: None. TECHNIQUE: Noncontrast scanning from skull base through lung apices with review of bone, soft tissue and lung windows. Reconstructed coronal and sagittal MPR images reviewed. All images stored on PAC S. All CT scanners at this facility use dose modulation, iterative reconstruction, and/or weight based d osing when appropriate to reduce radiation dose to as low as reasonably achievable (ALARA). [facility]: Dose Right [facility]: CareDose [facility]: Dose Right [facility]: Teradose 4D [facility]: Smart [employer] RADIATION DOSE: CT Rad equipment meets quality standard of care and radiation dose reduction techniq ues were employed. CTDIvol: 14.8 mGy. DLP: 412 mGy-cm. mGy. LIMITATIONS: None. FINDINGS: SKULL BASE: Intact. MAJOR SALIVARY GLANDS: No solid or cystic masses. No inflammatory changes. LYMPHADENOPATHY: No adenopathy. MUCOSAL MASSES OR ASYMMETRY: Status post left radical neck dissection. No obvious local recurrence. LARYNX/CORDS: No abnormal findings. LUNG APICES: Clear. BONES: Intact. THYROID: Normal size. No masses. PARANASAL SINUSES: Clear. OTHER: No other significant finding. IMPRESSION: Prior left radical neck dissection. No obvious recurrence. 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
--- NOTE | 2019-10-04 23:23 | PDOC CONSULTATION ---
Consultation-Blank Consultation: CARDIOLOGY CONSULTATION by Dr. Kassidy Robledo on 10/04/2019. Patient seen at 8:30 AM. 60 minutes spent on this patient with more than 50% of time spent in direct patient care. REASON FOR CONSULTATION: Patient with chronic atrial fibrillation with elevated troponin I. Treated for congestive heart failure with elevation of renal edematous. CONSULT REQUESTING PHYSICIAN: [facility] Remberto [facility]. HISTORY PRESENT ILLNESS: Patient is a very poor historian and also is very noncompliant with his medications, since I know home since he follows me up with me in the office. Patient is a 84-year-old male with known history of chronic atrial fibrillation, hypertension and mitral regurgitation who most likely quit taking his medications which included metoprolol and Eliquis and states since the last 2 weeks has been having increasing shortness of breath with minimal exertion to rest shortness of breath and palpitations. He came to the emergency room and was found to have a heart rate up in the 140s which was controlled with IV Cardizem. At present the patient's heart rate is well controlled. The patient did states that he had right-sided chest pain and the heart rate was fast. There is no clear-cut anginal symptoms. He states he had mild leg edema which is now resolved. The patient has been treated for congestive heart failure, with no the patient's renal function being elevated showing acute on chronic renal failure most likely due to overdiuresis. He also had a ventilation/perfusion scan which shows intermediate probability of pulmonary embolism. This is a moot point since the patient is going to be on Eliquis/chronic anticoagulation in view of his atrial fibrillation. He denies any PND orthopnea. There is no syncope. There is no TIA CVA symptoms. At present no bleeding on Eliquis. PAST MEDICAL HISTORY: History of hypertension. History of chronic atrial fibrillation. History of moderate mitral regurgitation by Echocardiographic normal LV ejection fraction by echo October 2018. There is no history of CT or mild anginal symptoms. No prior history of congestive heart failure. There is no syncope. He has no history of diabetes mellitus or thyroid disease. There is no history of TIA CVA. There is no history of GI bleed. 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 He has no prior history of pulmonary embolism. There is no history of COPD or asthma. There is no history of sleep apnea. PAST SURGICAL HISTORY: History of head and neck cancer surgery which seems to be extensive especially on the right side. He also had a suture of his scalp laceration after he had an accidental fall while he was on Eliquis. FAMILY HISTORY: Is positive for hypertension. Negative coronary artery disease. His son had repair of the mitral valve. SOCIAL HISTORY: The patient has never smoked. There is no history of EtOH abuse. ALLERGIES: The patient has no known allergies. RESUSCITATION STATUS: The patient is a full code. His and his son are his surrogate healthcare decision makers. HOME MEDICATIONS.: Aspirin/Caffeine [Edith Back & Body Caplet] 1 tab-cap PO DAILY 10/02/19 Multivit-Min/Folic/Vit K/Lycop [One-A-Day Men's 50+ Tablet] 1 each PO DAILY 10/02/19 Note he had stopped his Eliquis and metoprolol. REVIEW SYSTEMS: CONSTITUTIONAL with the patient's heart rate was fast he felt generalized fatigue and generalized weakness. HEAD: Denies headaches or recent right head injury. EYES: No history of amblyopia diplopia no history of amaurosis fugax. EARS: He is slightly hard of hearing. There is no tinnitus. There is no vertigo. NOSE: No history of hayfever. No history of nosebleeds. MOUTH: No history of bleeding from the gums. No altered taste sensation. THROAT: No history of odynophagia or dysphagia. No history of recurrent sore throats. SKIN: No history of pruritus. No allergic discoloration of the skin. LUNGS: No history of asthma or COPD. No cough or sputum production. No history of hemoptysis. No history of wheezing. No symptoms of upper or lower respiratory tract infection. HEART: Atrial fibrillation with rapid ventricular response. Due to noncompliance with medication. No definite signs of heart failure. No angina symptoms the patient does have elevated troponin I which is now trending down. This is secondary to supply demand mismatch. No evidence of non-ST elevation CT. GI: No history of GERD or GI bleed. History of hiatal hernia present. No altered bowel movements. ENDOCRINE no history of diabetes mellitus. No history of polydipsia polyuria no history of heat or cold intolerance. RENAL: Most likely patient has mild chronic renal insufficiency. The renal function is worsened. No symptoms or UTI. MUSCULOSKELETAL: No collagen vascular disease. DEBT COUNSELOR: No history of TIA CVA. No history of headaches migraines or seizures. PSYCHIATRIC: No history of anxiety or depression. VASCULAR: No history of DVT. No history of symptoms of peripheral vascular disease. Current Medications Generic Name Dose Route Start Last Admin Trade Name Freq PRN Reason Stop Dose Admin Acetaminophen 650 mg 10/04/19 09:13 Tylenol 325 Mg Tablet PO 11/03/19 09:12 Q6HP PRN PAIN OR TEMPERATURE Apixaban 2.5 mg 10/03/19 10:00 10/03/19 18:14 Eliquis 2.5 Mg Tablet PO 11/02/19 09:59 2.5 mg BID YEIMI Administration Aspirin 325 mg 10/03/19 20:00 10/04/19 09:52 Aspirin 325 Mg Tablet PO 11/02/19 19:59 325 mg DAILY YEIMI Administration Azithromycin 500 mg 10/04/19 10:00 10/04/19 09:52 Zithromax 250 Mg Tablet PO 10/07/19 09:59 500 mg DAILY YEIMI Administration Furosemide 20 mg 10/03/19 10:00 10/04/19 09:51 Lasix 20 Mg Tablet PO 11/02/19 09:59 20 mg DAILY YEIMI Administration Heparin Sodium (Porcine) 0 - 15,000 unit 10/04/19 11:05 Heparin Inj 1,000 Unit/Ml 10 Ml Vial IV 11/03/19 11:04 .BOLUS PER PROTOCOL PRN RESPOND TO aPTT VALUE Protocol Heparin Sodium/Dextrose 25,000 unit in 250 mls @ 0 mls/hr 10/04/19 08:05 10/04/19 12:06 Heparin Rtu 25,000 Unit/250 Ml D5w Premix IV 11/03/19 08:04 19 mls/hr CONTINUOUS PRN 19 mls/hr THIS MED IS NOT "PRN" Administration Protocol Titrate Metoprolol Tartrate 25 mg 10/02/19 19:00 10/04/19 17:17 Lopressor 25 Mg Tablet PO 11/01/19 18:59 25 mg Q12A YEIMI Administration Sodium Chloride 2.5 ml 10/02/19 22:00 10/04/19 13:48 Saline Flush 2.5 Ml Monoject Prefil Syrin IV 11/01/19 21:59 Not Given Q8 YEIMI Discontinued Medications Generic Name Dose Route Start Last Admin Trade Name Andrea PRN Reason Stop Dose Admin Aspirin 324 mg 10/02/19 17:27 10/02/19 18:06 Aspirin 81 Mg Chewable Tablet PO 10/02/19 17:28 324 mg NOW ONE Administration Diltiazem HCl 10 mg 10/02/19 16:38 10/02/19 16:51 Cardizem Inj 25 Mg/5 Ml Vial IV 10/02/19 16:39 10 mg NOW ONE Administration Diltiazem HCl 10 mg 10/02/19 17:49 10/02/19 18:00 Cardizem Inj 25 Mg/5 Ml Vial IV 10/02/19 17:50 10 mg NOW ONE Administration Furosemide 20 mg 10/02/19 17:41 10/02/19 18:06 Lasix Inj/Pf 20 Mg/2 Ml Sdv IV 10/02/19 17:42 20 mg NOW ONE Administration Heparin Sodium (Porcine) 8,500 unit 10/04/19 08:30 10/04/19 12:07 Heparin Inj 1,000 Unit/Ml 10 Ml Vial 80 unit/kg (8500 unit) 10/04/19 08:31 8,500 units IV Administration NOW ONE Metoprolol Tartrate 5 mg 10/03/19 19:49 10/03/19 21:58 Lopressor Inj/Pf 5 Mg/5 Ml Sdv IV 10/03/19 19:50 5 mg NOW ONE Administration Sodium Polystyrene Sulfonate 30 gm 10/04/19 08:30 10/04/19 09:52 Kayexalate 15 Gm/60 Ml Susp 60 Ml PO 10/04/19 08:31 30 gm NOW ONE Administration PHYSICAL EXAMINATION: The patient mildly obese. In no acute distress. Selected Entries 10/04/19 10/04/19 08:22 15:21 Temperature 98.3 F 98.1 F Temperature Oral Oral Source Pulse Rate 60 71 Respiratory 14 Rate Blood Pressure 108/64 Blood Pressure 124/70 [Right Upper Arm] Blood Pressure 78 Mean Blood Pressure 88 Mean [Right Upper Arm] Blood Pressure Sitting Position [Right Upper Arm] BP Location Right Arm BP Position Supine O2 Sat by Pulse 90 L Oximetry Oxygen Delivery Nasal Cannula Method ( includes room air) Oxygen Flow 3 Rate HEAD: Is atraumatic normocephalic. EYES: Pupils are equal round regular reactive to light accommodation. Extraocular movements are normal. There is no conjunctival pallor present there is no scleral icterus. ENT is negative. NECK: There is evidence of surgery on the right side of the neck carotids are equal there is no bruits over the carotids. There is no lymphadenopathy. There is no goiter. There is no accessory muscle respiration use. Trachea central. LUNGS: Is clear to auscultation percussion. There is no rhonchi rales or wheezing. HEART: S1-S2 is heard. S1 is of variable intensity. There is no S3 gallop. There is no S4 gallop. There is murmur of mitral regurgitation present. There is no rub. ABDOMEN: Is soft. There is no paraspinal megaly. Bowel sounds are well heard. There is no tender areas of masses. EXTREMITIES: Femorals are slightly diminished. There is no femoral bruits. Leg pulses are diminished. There is no pedal edema. There is no DVT or cellulitis. DEBT COUNSELOR: Patient is conscious awake alert oriented x3 with no focal deficits. PSYCHIATRIC: Patient judgment insight are intact her affect is normal. EKG: Atrial fibrillation with right bundle branch block pattern nonspecific minor ST depression inferior leads. Labs- Entire Visit 10/02/19 10/02/19 10/02/19 16:24 16:24 16:24 WBC 9.7 RBC 4.79 Hgb 10.8 L Hct 36.2 L MCV 76 L MCH 22.5 L MCHC 29.7 L RDW 19.8 H Plt Count 219 Lymph % (Auto) Not Reportable Twiggs % (Auto) Not Reportable Eos % (Auto) Not Reportable Baso % (Auto) Not Reportable Absolute Neuts (auto) Not Reportable Absolute Lymphs (auto) Not Reportable Absolute Monos (auto) Not Reportable Absolute Eos (auto) Not Reportable Absolute Basos (auto) Not Reportable Total Counted 100 Seg Neutrophils % Not Reportable Seg Neuts % (Manual) 92 H Lymphocytes % (Manual) 4 L Monocytes % (Manual) 4 Eosinophils % (Manual) 0 Basophils % (Manual) 0 Abs Neuts (Manual) 8.9 H Abs Lymphs (Manual) 0.4 L Abs Monocytes (Manual) 0.4 Absolute Eos (Manual) 0.0 Abs Basophils (Manual) 0.0 Nucleated RBCs 7 Platelet Comment ADEQUATE Polychromasia Hypochromasia SLIGHT Anisocytosis 2+ Microcytosis 1+ Tear Drop Cells SLIGHT PT INR APTT Sodium 138.2 Potassium 5.6 H Chloride 101 Carbon Dioxide 20 L Anion Gap 17 BUN 37 H Creatinine 1.33 H Est GFR ( Amer) > 60 Est GFR (MDRD) Non-Af 51 L Glucose 100 Calcium 9.8 Total Bilirubin 3.8 H Direct Bilirubin 1.3 H Neonat Total Bilirubin Not Reportable Neonat Direct Bilirubin Not Reportable Neonat Indirect Bili Not Reportable AST 673 H ALT 467 Alkaline Phosphatase 97 Creatine Kinase 241 H CK-MB (CK-2) 12.10 H Troponin I 0.780 NT-Pro-B Natriuret Pep Total Protein 7.6 Albumin 4.3 TSH Urine Color Urine Appearance Urine pH Ur Specific Franklin Urine Protein Urine Glucose (UA) Urine Ketones Urine Blood Urine Nitrite Urine Bilirubin Urine Urobilinogen Ur Leukocyte Esterase Urine WBC (Auto) Urine RBC (Auto) U Hyaline Cast (Auto) Squamous Epi Cells Auto Urine Mucus (Auto) Urine Ascorbic Acid 10/02/19 10/02/19 10/02/19 16:24 16:24 19:38 WBC RBC Hgb Hct MCV MCH MCHC RDW Plt Count Lymph % (Auto) Twiggs % (Auto) Eos % (Auto) Baso % (Auto) Absolute Neuts (auto) Absolute Lymphs (auto) Absolute Monos (auto) Absolute Eos (auto) Absolute Basos (auto) Total Counted Seg Neutrophils % Seg Neuts % (Manual) Lymphocytes % (Manual) Monocytes % (Manual) Eosinophils % (Manual) Basophils % (Manual) Abs Neuts (Manual) Abs Lymphs (Manual) Abs Monocytes (Manual) Absolute Eos (Manual) Abs Basophils (Manual) Nucleated RBCs Platelet Comment Polychromasia Hypochromasia Anisocytosis Microcytosis Tear Drop Cells PT INR APTT Sodium Potassium Chloride Carbon Dioxide Anion Gap BUN Creatinine Est GFR ( Amer) Est GFR (MDRD) Non-Af Glucose Calcium Total Bilirubin Direct Bilirubin Neonat Total Bilirubin Neonat Direct Bilirubin Neonat Indirect Bili AST ALT Alkaline Phosphatase Creatine Kinase CK-MB (CK-2) Troponin I NT-Pro-B Natriuret Pep 21698 H Total Protein Albumin TSH 4.65 Urine Color DARBY Urine Appearance SLIGHTLY-CLOUDY Urine pH 5.0 Ur Specific Franklin 1.018 Urine Protein 30 H Urine Glucose (UA) NEGATIVE Urine Ketones NEGATIVE Urine Blood NEGATIVE Urine Nitrite NEGATIVE Urine Bilirubin NEGATIVE Urine Urobilinogen 4.0 H Ur Leukocyte Esterase NEGATIVE Urine WBC (Auto) 1 Urine RBC (Auto) 1 U Hyaline Cast (Auto) 39 Squamous Epi Cells Auto <1 Urine Mucus (Auto) OCC Urine Ascorbic Acid NEGATIVE 10/03/19 10/03/19 10/03/19 14:47 17:10 22:44 WBC RBC Hgb Hct MCV MCH MCHC RDW Plt Count Lymph % (Auto) Twiggs % (Auto) Eos % (Auto) Baso % (Auto) Absolute Neuts (auto) Absolute Lymphs (auto) Absolute Monos (auto) Absolute Eos (auto) Absolute Basos (auto) Total Counted Seg Neutrophils % Seg Neuts % (Manual) Lymphocytes % (Manual) Monocytes % (Manual) Eosinophils % (Manual) Basophils % (Manual) Abs Neuts (Manual) Abs Lymphs (Manual) Abs Monocytes (Manual) Absolute Eos (Manual) Abs Basophils (Manual) Nucleated RBCs Platelet Comment Polychromasia Hypochromasia Anisocytosis Microcytosis Tear Drop Cells PT INR APTT Sodium 136.0 L Potassium 5.9 H Chloride 98 Carbon Dioxide 17 L Anion Gap 21 H BUN 53 H Creatinine 2.01 H Est GFR ( Amer) 38 L Est GFR (MDRD) Non-Af 32 L Glucose 102 Calcium 9.7 Total Bilirubin Direct Bilirubin Neonat Total Bilirubin Neonat Direct Bilirubin Neonat Indirect Bili AST ALT Alkaline Phosphatase Creatine Kinase 625 H CK-MB (CK-2) Troponin I 1.510 NT-Pro-B Natriuret Pep Total Protein Albumin TSH Urine Color Urine Appearance Urine pH Ur Specific Franklin Urine Protein Urine Glucose (UA) Urine Ketones Urine Blood Urine Nitrite Urine Bilirubin Urine Urobilinogen Ur Leukocyte Esterase Urine WBC (Auto) Urine RBC (Auto) U Hyaline Cast (Auto) Squamous Epi Cells Auto Urine Mucus (Auto) Urine Ascorbic Acid 10/03/19 10/04/19 10/04/19 22:44 04:10 04:10 WBC RBC Hgb Hct MCV MCH MCHC RDW Plt Count Lymph % (Auto) Twiggs % (Auto) Eos % (Auto) Baso % (Auto) Absolute Neuts (auto) Absolute Lymphs (auto) Absolute Monos (auto) Absolute Eos (auto) Absolute Basos (auto) Total Counted Seg Neutrophils % Seg Neuts % (Manual) Lymphocytes % (Manual) Monocytes % (Manual) Eosinophils % (Manual) Basophils % (Manual) Abs Neuts (Manual) Abs Lymphs (Manual) Abs Monocytes (Manual) Absolute Eos (Manual) Abs Basophils (Manual) Nucleated RBCs Platelet Comment Polychromasia Hypochromasia Anisocytosis Microcytosis Tear Drop Cells PT INR APTT Sodium Potassium Chloride Carbon Dioxide Anion Gap BUN Creatinine Est GFR ( Amer) Est GFR (MDRD) Non-Af Glucose Calcium Total Bilirubin Direct Bilirubin Neonat Total Bilirubin Neonat Direct Bilirubin Neonat Indirect Bili AST ALT Alkaline Phosphatase Creatine Kinase 559 H CK-MB (CK-2) 20.00 H 17.90 H Troponin I 1.400 1.130 NT-Pro-B Natriuret Pep Total Protein Albumin TSH Urine Color Urine Appearance Urine pH Ur Specific Franklin Urine Protein Urine Glucose (UA) Urine Ketones Urine Blood Urine Nitrite Urine Bilirubin Urine Urobilinogen Ur Leukocyte Esterase Urine WBC (Auto) Urine RBC (Auto) U Hyaline Cast (Auto) Squamous Epi Cells Auto Urine Mucus (Auto) Urine Ascorbic Acid 10/04/19 10/04/19 10/04/19 08:39 08:39 08:39 WBC 11.0 H RBC 4.67 Hgb 10.5 L Hct 35.1 L MCV 75 L MCH 22.5 L MCHC 29.9 L RDW 20.1 H Plt Count 152 Lymph % (Auto) Not Reportable Twiggs % (Auto) Not Reportable Eos % (Auto) Not Reportable Baso % (Auto) Not Reportable Absolute Neuts (auto) Not Reportable Absolute Lymphs (auto) Not Reportable Absolute Monos (auto) Not Reportable Absolute Eos (auto) Not Reportable Absolute Basos (auto) Not Reportable Total Counted 100 Seg Neutrophils % Not Reportable Seg Neuts % (Manual) 94 H Lymphocytes % (Manual) 5 L Monocytes % (Manual) 0 L Eosinophils % (Manual) 1 Basophils % (Manual) 0 Abs Neuts (Manual) 10.3 H Abs Lymphs (Manual) 0.6 Abs Monocytes (Manual) 0.0 L Absolute Eos (Manual) 0.1 Abs Basophils (Manual) 0.0 Nucleated RBCs 10 Platelet Comment ADEQUATE Polychromasia SLIGHT Hypochromasia SLIGHT Anisocytosis 2+ Microcytosis 1+ Tear Drop Cells PT 37.5 H INR 3.69 APTT 41.4 H Sodium 135.5 L Potassium 5.7 H Chloride 99 Carbon Dioxide 24 Anion Gap 13 BUN 65 H Creatinine 2.10 H Est GFR ( Amer) 36 L Est GFR (MDRD) Non-Af 30 L Glucose 75 Calcium 9.2 Total Bilirubin Direct Bilirubin Neonat Total Bilirubin Neonat Direct Bilirubin Neonat Indirect Bili AST ALT Alkaline Phosphatase Creatine Kinase CK-MB (CK-2) Troponin I NT-Pro-B Natriuret Pep Total Protein Albumin TSH Urine Color Urine Appearance Urine pH Ur Specific Franklin Urine Protein Urine Glucose (UA) Urine Ketones Urine Blood Urine Nitrite Urine Bilirubin Urine Urobilinogen Ur Leukocyte Esterase Urine WBC (Auto) Urine RBC (Auto) U Hyaline Cast (Auto) Squamous Epi Cells Auto Urine Mucus (Auto) Urine Ascorbic Acid 10/04/19 10/04/19 10/04/19 09:00 12:23 12:23 WBC RBC Hgb Hct MCV MCH MCHC RDW Plt Count Lymph % (Auto) Twiggs % (Auto) Eos % (Auto) Baso % (Auto) Absolute Neuts (auto) Absolute Lymphs (auto) Absolute Monos (auto) Absolute Eos (auto) Absolute Basos (auto) Total Counted Seg Neutrophils % Seg Neuts % (Manual) Lymphocytes % (Manual) Monocytes % (Manual) Eosinophils % (Manual) Basophils % (Manual) Abs Neuts (Manual) Abs Lymphs (Manual) Abs Monocytes (Manual) Absolute Eos (Manual) Abs Basophils (Manual) Nucleated RBCs Platelet Comment Polychromasia Hypochromasia Anisocytosis Microcytosis Tear Drop Cells PT INR APTT Sodium Potassium Chloride Carbon Dioxide Anion Gap BUN Creatinine Est GFR ( Amer) Est GFR (MDRD) Non-Af Glucose Calcium Total Bilirubin Direct Bilirubin Neonat Total Bilirubin Neonat Direct Bilirubin Neonat Indirect Bili AST ALT Alkaline Phosphatase Creatine Kinase 632 H CK-MB (CK-2) 22.10 H Troponin I 0.866 NT-Pro-B Natriuret Pep Total Protein Albumin TSH Urine Color YELLOW Urine Appearance SLIGHTLY-CLOUDY Urine pH 5.0 Ur Specific Franklin 1.014 Urine Protein NEGATIVE Urine Glucose (UA) NEGATIVE Urine Ketones NEGATIVE Urine Blood NEGATIVE Urine Nitrite NEGATIVE Urine Bilirubin NEGATIVE Urine Urobilinogen 4.0 H Ur Leukocyte Esterase NEGATIVE Urine WBC (Auto) 0 Urine RBC (Auto) U Hyaline Cast (Auto) 16 Squamous Epi Cells Auto <1 Urine Mucus (Auto) Urine Ascorbic Acid NEGATIVE 10/04/19 10/04/19 19:30 20:35 WBC RBC Hgb Hct MCV MCH MCHC RDW Plt Count Lymph % (Auto) Twiggs % (Auto) Eos % (Auto) Baso % (Auto) Absolute Neuts (auto) Absolute Lymphs (auto) Absolute Monos (auto) Absolute Eos (auto) Absolute Basos (auto) Total Counted Seg Neutrophils % Seg Neuts % (Manual) Lymphocytes % (Manual) Monocytes % (Manual) Eosinophils % (Manual) Basophils % (Manual) Abs Neuts (Manual) Abs Lymphs (Manual) Abs Monocytes (Manual) Absolute Eos (Manual) Abs Basophils (Manual) Nucleated RBCs Platelet Comment Polychromasia Hypochromasia Anisocytosis Microcytosis Tear Drop Cells PT INR APTT Cancelled > 235.0 H* Sodium Potassium Chloride Carbon Dioxide Anion Gap BUN Creatinine Est GFR ( Amer) Est GFR (MDRD) Non-Af Glucose Calcium Total Bilirubin Direct Bilirubin Neonat Total Bilirubin Neonat Direct Bilirubin Neonat Indirect Bili AST ALT Alkaline Phosphatase Creatine Kinase CK-MB (CK-2) Troponin I NT-Pro-B Natriuret Pep Total Protein Albumin TSH Urine Color Urine Appearance Urine pH Ur Specific Franklin Urine Protein Urine Glucose (UA) Urine Ketones Urine Blood Urine Nitrite Urine Bilirubin Urine Urobilinogen Ur Leukocyte Esterase Urine WBC (Auto) Urine RBC (Auto) U Hyaline Cast (Auto) Squamous Epi Cells Auto Urine Mucus (Auto) Urine Ascorbic Acid Chest X-Ray 10/02/19 15:53 IMPRESSION: Cardiomegaly without pulmonary edema. Small right pleural effusion. Lung Scan-VQ NM 10/03/19 00:00 IMPRESSION: Several small areas of decreased perfusion are seen peripherally in each lung. Intermediate probability of pulmonary embolus. Soft Tissue Neck CT 10/04/19 08:40 IMPRESSION: Prior left radical neck dissection. No obvious recurrence. ECHOCARDIOGRAM done in my office in October 2018: Shows normal left ventricle systolic function with a EF of 60%. No wall motion of normality. There is moderate mitral regurgitation. There is no other significant findings. Please see report on chart. IMPRESSION/RECOMMENDATION: 1.Elevated troponin I. This is trending down. This is secondary to supply demand mismatch. No evidence of non-ST elevation CT. 2. Acute on chronic renal insufficiency most likely secondary to overdiuresis. Patient appears to be dry clinically. Will gently rehydrate the patient all the patient's Lasix. 3. Chronic atrial fibrillation: Rapid ventricular response secondary to noncompliance with medication. At present heart rate is well controlled. Co ntinue Eliquis and metoprolol.. 4. Indeterminate ventilation/perfusion scan for pulmonary embolism. This is a moot point since the patient is going to be on chronic anticoagulation for his atrial fibrillation. 5. Moderate mitral regurgitation. Once the patient blood pressure comes up we will start the patient on an afterload reducing agent, with the hope that the kidney function will improve with hydration. 6. Hypertension: Blood pressure remains stable. Will observe. Continue patient on metoprolol. Medications reviewed. Medications adjusted. IV fluids added. Medical decision making is of high complexity. 60 minutes spent on this patient with more than 650% of time spent in direct patient care. The case has been discussed with the hospitalist attending physician Dr. Arthur. Will follow
[2019-10-04] MEDS ORDERED: NORMAL SALINE 1000 ML 1,000 ML IV PRN (23:33)
--- NOTE | 2019-10-05 06:14 | RADIOLOGY REPORT (SQ) ---
EXAM DESCRIPTION: CT HEAD WITHOUT IV CONTRAST COMPLETED DATE/TME: 10/05/2019 00:00 CLINICAL HISTORY: 84 years, Male, ams COMPARISON: 05/14/2019 TECHNIQUE: Axial CT images of the brain were obtained without contrast. Sagittal and coronal reformats were performed. DLP 930. Images stored on PACS. All CT scanners at this facility use dose modulation, iterative reconstruction, and/or weight based dosing when appropriate to reduce radiation dose to as low as reasonably achievable (ALARA). [facility]: Dose Right [facility]: CareDose [facility]: Dose Right [facility]: Teradose 4D [facility]: OfficialVirtualDJ LIMITATIONS: None. FINDINGS: The exam is somewhat limited secondary to patient motion. There is mild diffuse cerebral atrophy with moderate periventricular and deep white matter microvascular changes. No definite acute cortical infarct, hemorrhage, mass, edema, hydrocephalus, or extra-axial fluid collection. The oro-white maturation appears preserved. The paranasal sinuses and mastoid air cells are grossly clear. No depressed calvarial fracture. IMPRESSION: No definite acute intracranial abnormality TECHNICAL DOCUMENTATION: Quality ID # [id number]: Final reports with documentation of one or more dose reduction techniques (e.g., Automated exposure control, adjustment of the mA and/or kV according to patient size, use of iterative reconstruction technique) copyright 2010 [employer]- All Rights Reserved
[2019-10-05 07:00] LABS: ANION GAP 10 (5-19); BLOOD UREA NITROGEN 70 mg/dL (7-20); CALCIUM 8.2 mg/dL (8.4-10.2); CARBON DIOXIDE 26 mmol/L (22-30); CHLORIDE 101 mmol/L (98-107); GLUCOSE 92 mg/dL (75-110)
[2019-10-05] MEDS: METOPROLOL TARTRATE 25 MG TABLET PO SCH ×2 (07:17→17:23)
[2019-10-05 08:08] LABS: HEMATOCRIT 32.5 % (37.9-51.0); HEMOGLOBIN 9.9 g/dL (13.5-17.0); MEAN CORPUSCULAR HEMOGLOBIN 22.7 pg (27.0-33.4); MEAN CORPUSCULAR HGB CONC 30.6 g/dL (32.0-36.0); MEAN CORPUSCULAR VOLUME 74 fl (80-97); PLATELET COUNT 126 10^3/uL (150-450); RED BLOOD COUNT 4.37 10^6/uL (4.35-5.55); RED CELL DISTRIBUTION WIDTH 19.7 % (11.5-14.0); WHITE BLOOD COUNT 6.9 10^3/uL (4.0-10.5)
[2019-10-05 08:34] LABS: ABSOLUTE LYMPHOCYTES# (MANUAL) 0.4 10^3/uL (0.5-4.7); ABSOLUTE MONOCYTES # (MANUAL) 0.3 10^3/uL (0.1-1.4); BASOPHILS % (MANUAL) 0 % (0-2); EOSINOPHILS % (MANUAL) 6 % (0-6); LYMPHOCYTES % (MANUAL) 6 % (13-45); MONOCYTES % (MANUAL) 5 % (3-13); SEGMENTED NEUTROPHILS % (MAN) 83 % (42-78); TOTAL CELLS COUNTED 100
[2019-10-05 08:37] LABS: ANISOCYTOSIS 2+; HYPOCHROMASIA 1+; OVALOCYTES 1+; PLATELET COMMENT DECREASED; PLATELET GIANT PRESENT; POLYCHROMASIA 1+
[2019-10-05] MEDS: AZITHROMYCIN 250 MG TABLET PO SCH (09:11)
[2019-10-05] MEDS: ASPIRIN 325 MG TABLET PO SCH (09:11)
[2019-10-05] MEDS ORDERED: NORMAL SALINE 1000 ML 1,000 ML IV PRN (10:28)
--- NOTE | 2019-10-05 10:49 | RADIOLOGY REPORT (SQ) ---
EXAM DESCRIPTION: CHEST SINGLE VIEW COMPLETED DATE/TIME: 10/05/2019 10:40 am REASON FOR STUDY: cardiomrgaly COMPARISON: 10/02/2019 NUMBER OF VIEWS: One view. TECHNIQUE: Single frontal radiographic image of the chest acquired. LIMITATIONS: None. FINDINGS: LUNGS AND PLEURA: Small pleural effusions, right greater than left. MEDIASTINUM AND HEART: Stable heart size and mediastinal structures. BONY STRUCTURES: No acute findings. HARDWARE: None. OTHER: No other significant finding. IMPRESSION: Cardiomegaly. Pleural effusions. Question CHF. Clinical correlation is needed. TECHNICAL DOCUMENTATION: JOB ID: [id number] Reading location - IP/workstation name: [email or web address]
[2019-10-05] MEDS ORDERED: NORMAL SALINE 500 ML IV PRN (13:34)
--- NOTE | 2019-10-05 14:41 | XCELERA REPORT ---
[address] [address] Transthoracic Echocardiogram Report Name: JUANY OLIVERA Age: 84 yrs Gender: Male : 1935 Patient Status: Inpatient Patient Location: [address] [place], [place] [address] Study Date: 10/05/2019 02:09 PM Height: 70 in Weight: 231 lb BSA: 2.2 m2 Procedure: A two-dimensional transthoracic echocardiogram with color flow and Doppler was performed. The study was technically difficult with many images being suboptimal in quality. Reason For Study: MR / Cardiomegaly History: MR / Cardiomegaly. Ordering Physician: KASSIDY ROBLEDO Performed By: Francine Rangel Interpretation Summary The left ventricle is normal in size. There is mild concentric left ventricular hypertrophy. LV EF is 60% Left ventricular systolic function is normal. The left ventricular wall motion is normal. There is no thrombus. Cannot assess for ASD,VSD, or PFO. The right ventricle is not well visualized secondary to technical limitations The right atrium is normal. The left atrium is mildly dilated. There is no evidence of mitral valve prolapse. There is no vegetation seen on the mitral valve. There is no mitral valve stenosis. There is a moderate amount of mitral regurgitation There is no aortic valvular vegetation. There is no aortic valve stenosis There is aortic sclerosis without aortic stenosis. There is no LVOT obstruction. No aortic regurgitation is present. There is no tricuspid stenosis. There is a mild amount of tricuspid regurgitation There is mild to moderate pulmonary hypertension by echo RVSP is 46 to 51 mm of Hg , with RA men of 15 to 20. There is no pulmonic valvular stenosis. There is no pulmonic valvular regurgitation. The aortic root is normal size. The inferior vena cava appeared dilated and decreased < 50% with respiration (RAP 15-20 mmHg) There is no pericardial effusion. MMode/2D Measurements & Calculations RVDd: 2.8 cm LVIDd: 5.2 cm FS: 33.9 % Ao root diam: 3.0 cm IVSd: 1.2 cm LVIDs: 3.5 cm EDV(Teich): 130.9 ml Ao root area: 7.1 cm2 LVPWd: 1.4 cm ESV(Teich): 49.3 ml EF(Teich): 62.4 % Doppler Measurements & Calculations Ao V2 max: LV V1 max PG: PA V2 max: PI end-d pelon: 128.1 cm/sec 1.1 mmHg 59.5 cm/sec 79.9 cm/sec Ao max P.6 mmHg LV V1 max: PA max P.5 cm/sec 1.4 mmHg TR max pelon: 278.3 cm/sec TR max P.0 mmHg Left Ventricle The left ventricle is normal in size. There is mild concentric left ventricular hypertrophy. LV EF is 60%. Left ventricular systolic function is normal. LV diastolic function could not be adequately assessed due to atrial fibrilation. The left ventricular wall motion is normal. There is no thrombus. Cannot assess for ASD,VSD, or PFO. Right Ventricle The right ventricle is not well visualized secondary to technical limitations. Atria The right atrium is normal. The left atrium is mildly dilated. Mitral Valve There is no evidence of mitral valve prolapse. There is no vegetation seen on the mitral valve. There is no mitral valve stenosis. There is a moderate amount of mitral regurgitation. Aortic Valve There is no aortic valvular vegetation. There is no aortic valve stenosis. There is aortic sclerosis without aortic stenosis. There is no LVOT obstruction. No aortic regurgitation is present. Tricuspid Valve There is no tricuspid stenosis. There is a mild amount of tricuspid regurgitation. There is mild to moderate pulmonary hypertension by echo. RVSP is 46 to 51 mm of Hg , with RA men of 15 to 20. Pulmonic Valve There is no pulmonic valvular stenosis. There is no pulmonic valvular regurgitation. Great Vessels The aortic root is normal size. The inferior vena cava appeared dilated and decreased < 50% with respiration (RAP 15-20 mmHg). Effusions There is no pericardial effusion. : KASSIDY ROBLEDO Lakshmi
--- NOTE | 2019-10-05 14:51 | Progress Note ---
Provider Note Provider Note: CARDIOLOGY PROGRESS NOTE by Dr. Kassidy Robledo on 10/05/2019. SUBJECTIVE: The patient at present denies any chest pain or discomfort. There is no PND orthopnea or leg edema. The patient continues to be in atrial fibrillation. Last night the patient was thought to have a TIA but it ended up that the patient had blurred vision secondary to his eyes. His CT scan was negative for an acute CVA. He has no bleeding on Eliquis and there is no TIA CVA symptoms. The patient has no chest pain. PHYSICAL EXAMINATION: Patient is mildly obese at present in no acute distress. Selected Entries 10/05/19 11:37 Temperature 97.8 F Temperature Oral Source Pulse Rate 71 Respiratory 17 Rate Blood Pressure 93/62 L subsequently blood pressure 107/65 Blood Pressure 72 Mean BP Location Right Arm BP Position Supine O2 Sat by Pulse 100 Oximetry Oxygen Flow 4 Rate Oxygen Delivery Nasal Cannula Method HEAD: Is atraumatic normocephalic. EYES: Pupils are equal round regular reactive to light accommodation. Extraocular movements are normal. There is no conjunctival pallor present there is no scleral icterus. ENT is negative. NECK: There is evidence of surgery on the right side of the neck carotids are equal there is no bruits over the carotids. There is no lymphadenopathy. There is no goiter. There is no accessory muscle respiration use. Trachea central. LUNGS: Is clear to auscultation percussion. There is no rhonchi rales or wheezing. HEART: S1-S2 is heard. S1 is of variable intensity. There is no S3 gallop. There is no S4 gallop. There is murmur of mitral regurgitation present. There is no rub. ABDOMEN: Is soft. There is no paraspinal megaly. Bowel sounds are well heard. There is no tender areas of masses. EXTREMITIES: Femorals are slightly diminished. There is no femoral bruits. Leg pulses are diminished. There is no pedal edema. There is no DVT or cellulitis. FINAL RAIL CUTTER: Patient is conscious awake alert oriented x3 with no focal deficits. PSYCHIATRIC: Patient judgment insight are intact her affect is normal. ECHOCARDIOGRAM: The left ventricle is normal in size. There is mild concentric left ventricular hypertrophy. LV EF is 60% Left ventricular systolic function is normal. The left ventricular wall motion is normal. There is no thrombus. Cannot assess for ASD,VSD, or PFO. The right ventricle is not well visualized secondary to technical limitations The right atrium is normal. The left atrium is mildly dilated. There is no evidence of mitral valve prolapse. There is no vegetation seen on the mitral valve. There is no mitral valve stenosis. There is a moderate amount of mitral regurgitation There is no aortic valvular vegetation. There is no aortic valve stenosis There is aortic sclerosis without aortic stenosis. There is no LVOT obstruction. No aortic regurgitation is present. There is no tricuspid stenosis. There is a mild amount of tricuspid regurgitation There is mild to moderate pulmonary hypertension by echo RVSP is 46 to 51 mm of Hg , with RA men of 15 to 20. There is no pulmonic valvular stenosis. There is no pulmonic valvular regurgitation. The aortic root is normal size. The inferior vena cava appeared dilated and decreased < 50% with respiration (RAP 15-20 mmHg) Echo findings were discussed with the patient. Abnormal - 24 hr 10/04/19 10/04/19 10/05/19 20:35 23:27 01:06 Hgb Hct MCV MCH MCHC RDW Plt Count Seg Neuts % (Manual) Lymphocytes % (Manual) Abs Lymphs (Manual) APTT > 235.0 H* 165.1 H* 80.2 H Sodium BUN Creatinine Est GFR ( Amer) Est GFR (MDRD) Non-Af Calcium 10/05/19 10/05/19 10/05/19 04:56 06:15 06:15 Hgb 9.9 L Hct 32.5 L MCV 74 L MCH 22.7 L MCHC 30.6 L RDW 19.7 H Plt Count 126 L Seg Neuts % (Manual) 83 H Lymphocytes % (Manual) 6 L Abs Lymphs (Manual) 0.4 L APTT 149.6 H* Sodium 136.9 L BUN 70 H Creatinine 1.53 H Est GFR ( Amer) 52 L Est GFR (MDRD) Non-Af 43 L Calcium 8.2 L 10/05/19 08:11 Hgb Hct MCV MCH MCHC RDW Plt Count Seg Neuts % (Manual) Lymphocytes % (Manual) Abs Lymphs (Manual) APTT 47.8 H Sodium BUN Creatinine Est GFR ( Amer) Est GFR (MDRD) Non-Af Calcium Chest X-Ray 10/02/19 15:53 IMPRESSION: Cardiomegaly without pulmonary edema. Small right pleural effusion. Lung Scan-VQ NM 10/03/19 00:00 IMPRESSION: Several small areas of decreased perfusion are seen peripherally in each lung. Intermediate probability of pulmonary embolus. Soft Tissue Neck CT 10/04/19 08:40 IMPRESSION: Prior left radical neck dissection. No obvious recurrence. Chest X-Ray 10/05/19 00:00 IMPRESSION: Cardiomegaly. Pleural effusions. Question CHF. Clinical correlation is needed. I reviewed the chest x-ray, and my interpretation there is no evidence of heart failure. Head CT 10/05/19 00:00 IMPRESSION: No definite acute intracranial abnormality TECHNICAL DOCUMENTATION: Quality ID # 436: Final reports with documentation of one or more dose reduction techniques (e.g., Automated exposure control, adjustment of the mA and/or kV according to patient size, use of iterative reconstruction technique) IMPRESSION/RECOMMENDATION: 1.Elevated troponin I. This is trending down. This is secondary to supply demand mismatch. No evidence of non-ST elevation DC. 2. Acute on chronic renal insufficiency most likely secondary to overdiuresis. Patient appears to be dry clinically. Will gently rehydrate the patient and hold the patient's Lasix. There is no evidence of congestive heart failure clinically or by chest x-ray. 3. Chronic atrial fibrillation: Rapid ventricular response secondary to noncompliance with medication. At present heart rate is well controlled. Continue Eliquis and metoprolol.. 4. Indeterminate ventilation/perfusion scan for pulmonary embolism. This is a moot point since the patient is going to be on chronic anticoagulation for his atrial fibrillation. 5. Moderate mitral regurgitation. Once the patient blood pressure comes up we will start the patient on an afterload reducing agent, with the hope that the kidney function will improve with hydration. 6. Hypertension: Blood pressure remains stable. Will observe. Continue patient on metoprolol. Medications reviewed. Medications adjusted. Medical regimen and management plan discussed with attending provider on the case. Medical decision making is of high complexity. 40 minutes spent on this patient more than 50% of time spent in direct patient care.
[2019-10-05] MEDS: APIXABAN 2.5 MG TABLET PO SCH ×2 (17:23→17:24)
[2019-10-05] MEDS ORDERED: APIXABAN 5 MG TABLET PO SCH (18:00)
[2019-10-06] MEDS: METOPROLOL TARTRATE 25 MG TABLET PO SCH ×2 (05:35→17:06)
[2019-10-06 06:08] LABS: HEMOGLOBIN 10.2 g/dL (13.5-17.0); MEAN CORPUSCULAR HEMOGLOBIN 22.9 pg (27.0-33.4); MEAN CORPUSCULAR HGB CONC 30.8 g/dL (32.0-36.0); MEAN CORPUSCULAR VOLUME 74 fl (80-97); PLATELET COUNT 136 10^3/uL (150-450); RED BLOOD COUNT 4.45 10^6/uL (4.35-5.55); RED CELL DISTRIBUTION WIDTH 19.9 % (11.5-14.0)
[2019-10-06 06:30] LABS: ANION GAP 13 (5-19); BLOOD UREA NITROGEN 58 mg/dL (7-20); CALCIUM 8.5 mg/dL (8.4-10.2); CARBON DIOXIDE 24 mmol/L (22-30); CHLORIDE 101 mmol/L (98-107); GLUCOSE 104 mg/dL (75-110); POTASSIUM 4.2 mmol/L (3.6-5.0)
[2019-10-06 06:41] LABS: ABSOLUTE LYMPHOCYTES# (MANUAL) 0.6 10^3/uL (0.5-4.7); BAND NEUTROPHILS % (MANUAL) 1 % (3-5); BASOPHILS % (MANUAL) 0 % (0-2); EOSINOPHILS % (MANUAL) 0 % (0-6); LYMPHOCYTES % (MANUAL) 8 % (13-45); MONOCYTES % (MANUAL) 14 % (3-13); NUCLEATED RED BLOOD CELLS 9 /100 WBC (0); SEGMENTED NEUTROPHILS % (MAN) 77 % (42-78); TOTAL CELLS COUNTED 100
[2019-10-06 06:43] LABS: ANISOCYTOSIS 2+; HYPOCHROMASIA 1+; PLATELET COMMENT ADEQUATE; POLYCHROMASIA 1+
--- NOTE | 2019-10-06 07:22 | PDOC PROGRESS REPORT ---
Subjective Progress Note for:: 10/05/19 Subjective:: This is an 84-year-old male who was admitted with A. fib with RVR. Patient did respond well to 2 doses of IV Cardizem in the ER. He was restarted on his metoprolol. 10/03: No acute event overnight. Heart rate has been controlled in the 70s to 80s. He says that his shortness of breath has improved this morning but still not at his baseline. He denies chest pain. He says that he has moderately productive cough with greenish sputum today. He says his leg edema and tightness have slightly improved. 10/04: He remains rate controlled. his VQ scan did show possible PE. His troponins did trend up. He appears comfortable and says he feels better today. He reports that his shortness of breath continue to improve. He denies chest pain. Started on heparin drip. Plan to switch later to a full dose Eliquis for his PE and A. fib. 10/05: Noted acute events overnight. Patient was initially reported to be short of breath and had saturation of 85% on 4 L. Reportedly, this went up to 100% when saturation was taken to forehead. Patient apparently developed confusion last night. His APTT was also significantly elevated. There was reported left- sided droop around 4 in the morning and reportedly his left pupil was nonreactive. An HAT BLOCKER was called. Heparin drip was held and head CT was also ordered. Upon encounter this morning, he appears to be at his baseline. He says his shortness of breath continued to improve. He denies weakness or numbness. No appreciated sensorimotor deficits. He has slightly reactive pupils but he does report he had bilateral cataract surgeries on both eyes. He also reports that he has a known lazy eye. CT of the head is unremarkable. Reason For Visit: AFIB W/ RVR Physical Exam Vital Signs: Temp Pulse Resp BP Pulse Ox 97.3 F 67 24 H 109/71 96 10/05/19 03:37 10/05/19 07:00 10/05/19 03:37 10/05/19 03:37 10/05/19 04:53 Intake & Output 10/04/19 10/05/19 10/06/19 06:59 06:59 06:59 Intake Total 840 700 Output Total 102 375 Balance 738 325 Weight 233 lb 11.04 oz 231 lb 14.821 oz General appearance: PRESENT: no acute distress, well-developed, well-nourished Head exam: PRESENT: atraumatic, normocephalic Eye exam: PRESENT: conjunctiva pink, EOMI, PERRLA. ABSENT: scleral icterus Ear exam: PRESENT: normal external ear exam Mouth exam: PRESENT: moist, tongue midline Neck exam: ABSENT: carotid bruit, JVD, lymphadenopathy, thyromegaly Respiratory exam: PRESENT: clear to auscultation vasile. ABSENT: rales, rhonchi, wheezes Cardiovascular exam: PRESENT: RRR. ABSENT: diastolic murmur, rubs, systolic murmur Pulses: PRESENT: normal dorsalis pedis pul GI/Abdominal exam: PRESENT: normal bowel sounds, soft. ABSENT: distended, guarding, mass, organolmegaly, rebound, tenderness Rectal exam: PRESENT: deferred Neurological exam: PRESENT: alert, awake, oriented to person, oriented to place, oriented to time. ABSENT: motor sensory deficit Results Laboratory Results: 10/05/19 06:15 10/04/19 10/04/19 10/04/19 08:39 08:39 09:00 WBC 11.0 H RBC 4.67 Hgb 10.5 L Hct 35.1 L MCV 75 L MCH 22.5 L MCHC 29.9 L RDW 20.1 H Plt Count 152 Seg Neutrophils % Not Reportable Sodium 135.5 L Potassium 5.7 H Chloride 99 Carbon Dioxide 24 Anion Gap 13 BUN 65 H Creatinine 2.10 H Est GFR ( Amer) 36 L Glucose 75 Calcium 9.2 Urine Color YELLOW Urine Appearance SLIGHTLY-CLOUDY Urine pH 5.0 Ur Specific [place] 1.014 Urine Protein NEGATIVE Urine Glucose (UA) NEGATIVE Urine Ketones NEGATIVE Urine Blood NEGATIVE Urine Nitrite NEGATIVE Ur Leukocyte Esterase NEGATIVE Urine WBC (Auto) 0 10/05/19 06:15 WBC RBC Hgb Hct MCV MCH MCHC RDW Plt Count Seg Neutrophils % Sodium 136.9 L Potassium 4.0 D Chloride 101 Carbon Dioxide 26 Anion Gap 10 BUN 70 H Creatinine 1.53 H Est GFR ( Amer) 52 L Glucose 92 Calcium 8.2 L Urine Color Urine Appearance Urine pH Ur Specific [place] Urine Protein Urine Glucose (UA) Urine Ketones Urine Blood Urine Nitrite Ur Leukocyte Esterase Urine WBC (Auto) 10/02/19 10/02/19 10/02/19 16:24 16:24 16:24 Creatine Kinase 241 H CK-MB (CK-2) 12.10 H Troponin I 0.780 NT-Pro-B Natriuret Pep 08027 H 10/03/19 10/03/19 10/03/19 17:10 22:44 22:44 Creatine Kinase 625 H CK-MB (CK-2) 20.00 H Troponin I 1.510 1.400 NT-Pro-B Natriuret Pep 10/04/19 10/04/19 10/04/19 04:10 04:10 12:23 Creatine Kinase 559 H 632 H CK-MB (CK-2) 17.90 H Troponin I 1.130 NT-Pro-B Natriuret Pep 10/04/19 12:23 Creatine Kinase CK-MB (CK-2) 22.10 H Troponin I 0.866 NT-Pro-B Natriuret Pep Impressions: Chest X-Ray 10/02/19 15:53 IMPRESSION: Cardiomegaly without pulmonary edema. Small right pleural effusion. Lung Scan-VQ NM 10/03/19 00:00 IMPRESSION: Several small areas of decreased perfusion are seen peripherally in each lung. Intermediate probability of pulmonary embolus. Soft Tissue Neck CT 10/04/19 08:40 IMPRESSION: Prior left radical neck dissection. No obvious recurrence. Head CT 10/05/19 00:00 IMPRESSION: No definite acute intracranial abnormality TECHNICAL DOCUMENTATION: Quality ID # 436: Final reports with documentation of one or more dose reduction techniques (e.g., Automated exposure control, adjustment of the mA and/or kV according to patient size, use of iterative reconstruction technique) copyright 2011 [email or web address]- All Rights Reserved Assessment and Plan - Diagnosis (1) Atrial fibrillation with rapid ventricular response Is this a current diagnosis for this admission?: Yes Plan: 10/04: Remains rate controlled. Continue metoprolol. Started on heparin drip for PE as well. 10/05: No clinical signs or symptoms of bleeding. Switch heparin drip to Eliquis. Keep dose at 2.5 mg bid for now as creatinine is still at 1.5. He will need the full dose of 5 mg bid when creatine is <1.5 now that he is also being treated for possible PE. Risks and benefits of anticoagulation including bleeding has b een discussed with patient. (2) BEVERLY (acute kidney injury) Is this a current diagnosis for this admission?: Yes Plan: Hold off on Lasix for now. 10/04: Started on IV fluids last night. (3) Hypertension Is this a current diagnosis for this admission?: Yes (4) Elevated troponin Is this a current diagnosis for this admission?: Yes Plan: Likely demand, related to A. fib with RVR and pulmonary embolism. He denies chest pain. Reviewed previous EKGs. EKG changes are chronic and unchanged from previous EKG. (5) Noncompliance with medication regimen Is this a current diagnosis for this admission?: Yes Plan: Counseled in length. - Time Time Spent with patient: 25-34 minutes
[2019-10-06] MEDS: AZITHROMYCIN 250 MG TABLET PO SCH (09:28)
[2019-10-06] MEDS: APIXABAN 2.5 MG TABLET PO SCH ×2 (09:28→17:06)
--- NOTE | 2019-10-06 12:50 | PDOC PROGRESS REPORT ---
Subjective Progress Note for:: 10/06/19 Subjective:: This is an 84-year-old male who was admitted with A. fib with RVR. Patient did respond well to 2 doses of IV Cardizem in the ER. He was restarted on his metoprolol. 10/03: No acute event overnight. Heart rate has been controlled in the 70s to 80s. He says that his shortness of breath has improved this morning but still not at his baseline. He denies chest pain. He says that he has moderately productive cough with greenish sputum today. He says his leg edema and tightness have slightly improved. 10/04: He remains rate controlled. his VQ scan did show possible PE. His troponins did trend up. He appears comfortable and says he feels better today. He reports that his shortness of breath continue to improve. He denies chest pain. Started on heparin drip. Plan to switch later to a full dose Eliquis for his PE and A. fib. 10/05: Noted acute events overnight. Patient was initially reported to be short of breath and had saturation of 85% on 4 L. Reportedly, this went up to 100% when saturation was taken to forehead. Patient apparently developed confusion last night. His APTT was also significantly elevated. There was reported left- sided droop around 4 in the morning and reportedly his left pupil was nonreactive. An ASSOCIATE SOFTWARE ENGINEER was called. Heparin drip was held and head CT was also ordered. Upon encounter this morning, he appears to be at his baseline. He says his shortness of breath continued to improve. He denies weakness or numbness. No appreciated sensorimotor deficits. He has slightly reactive pupils but he does report he had bilateral cataract surgeries on both eyes. He also reports that he has a known lazy eye. CT of the head is unremarkable. 10/06: No acute event overnight. At rest, he says he continues to feel better. Attempt to evaluate for home O2 need was done. He was weaned off on O2 at rest. When patient tried to ambulate, he became tachycardic in the 130s and got really short of breath and had to be put back on O2. Will consult discharge planning for possible need for home O2. Reason For Visit: AFIB W/ RVR Physical Exam Vital Signs: Temp Pulse Resp BP Pulse Ox 97.3 F 69 20 132/94 H 100 10/06/19 04:22 10/06/19 07:54 10/06/19 07:54 10/06/19 07:54 10/06/19 07:54 Intake & Output 10/05/19 10/06/19 10/07/19 06:59 06:59 06:59 Intake Total 928 1417 Output Total 375 635 Balance 553 782 Weight 231 lb 14.821 oz 236 lb 15.951 oz General appearance: PRESENT: no acute distress, well-developed, well-nourished Head exam: PRESENT: atraumatic, normocephalic Eye exam: PRESENT: conjunctiva pink, EOMI, PERRLA. ABSENT: scleral icterus Ear exam: PRESENT: normal external ear exam Mouth exam: PRESENT: moist, tongue midline Neck exam: ABSENT: carotid bruit, JVD, lymphadenopathy, thyromegaly Respiratory exam: PRESENT: rhonchi. ABSENT: rales, wheezes Cardiovascular exam: PRESENT: irregular rhythm, tachycardia. ABSENT: diastolic murmur, rubs, systolic murmur Pulses: PRESENT: normal dorsalis pedis pul GI/Abdominal exam: PRESENT: normal bowel sounds, soft. ABSENT: distended, guarding, mass, organolmegaly, rebound, tenderness Rectal exam: PRESENT: deferred Extremities exam: PRESENT: +1 edema Neurological exam: PRESENT: alert, awake, oriented to person, oriented to place, oriented to time, oriented to situation, CN II-XII grossly intact. ABSENT: motor sensory deficit Results Laboratory Results: 10/06/19 05:52 10/06/19 05:52 10/06/19 10/06/19 05:52 05:52 WBC 7.0 RBC 4.45 Hgb 10.2 L Hct 33.0 L MCV 74 L MCH 22.9 L MCHC 30.8 L RDW 19.9 H Plt Count 136 L Seg Neutrophils % Not Reportable Sodium 137.5 Potassium 4.2 Chloride 101 Carbon Dioxide 24 Anion Gap 13 BUN 58 H Creatinine 1.10 Est GFR ( Amer) > 60 Glucose 104 Calcium 8.5 10/02/19 10/02/19 10/02/19 16:24 16:24 16:24 Creatine Kinase 241 H CK-MB (CK-2) 12.10 H Troponin I 0.780 NT-Pro-B Natriuret Pep 52434 H 12/06/19 12/06/19 12/06/19 17:10 22:44 22:44 Creatine Kinase 625 H CK-MB (CK-2) 20.00 H Troponin I 1.510 1.400 NT-Pro-B Natriuret Pep 10/04/19 10/04/19 10/04/19 04:10 04:10 12:23 Creatine Kinase 559 H 632 H CK-MB (CK-2) 17.90 H Troponin I 1.130 NT-Pro-B Natriuret Pep 10/04/19 12:23 Creatine Kinase CK-MB (CK-2) 22.10 H Troponin I 0.866 NT-Pro-B Natriuret Pep Impressions: Lung Scan-VQ NM 10/03/19 00:00 IMPRESSION: Several small areas of decreased perfusion are seen peripherally in each lung. Intermediate probability of pulmonary embolus. Soft Tissue Neck CT 10/04/19 08:40 IMPRESSION: Prior left radical neck dissection. No obvious recurrence. Chest X-Ray 10/05/19 00:00 IMPRESSION: Cardiomegaly. Pleural effusions. Question CHF. Clinical correlation is needed. Head CT 10/05/19 00:00 IMPRESSION: No definite acute intracranial abnormality TECHNICAL DOCUMENTATION: Quality ID # 436: Final reports with documentation of one or more dose reduction techniques (e.g., Automated exposure control, adjustment of the mA and/or kV according to patient size, use of iterative reconstruction technique) copyright 2011 [employer]- All Rights Reserved Assessment and Plan - Diagnosis (1) Atrial fibrillation with rapid ventricular response Is this a current diagnosis for this admission?: Yes Plan: 10/04: Remains rate controlled. Continue metoprolol. Started on heparin drip for PE as well. 10/05: No clinical signs or symptoms of bleeding. Switch heparin drip to Eliquis. Keep dose at 2.5 mg bid for now as creatinine is still at 1.5. He will need the full dose of 5 mg bid when creatine is <1.5 now that he is also being treated for possible PE. Risks and benefits of anticoagulation including bleeding has been discussed with patient. 10/06: Continue Eliquis and metoprolol. (2) BEVERLY (acute kidney injury) Is this a current diagnosis for this admission?: Yes Plan: Hold off on Lasix for now. 10/04: Started on IV fluids last night. 10/05: Resolved. (3) Elevated troponin Is this a current diagnosis for this admission?: Yes Plan: Likely demand, related to A. fib with RVR and pulmonary embolism. He denies chest pain. Reviewed previous EKGs. EKG changes are chronic and unchanged from previous EKG. (4) Hypertension Is this a current diagnosis for this admission?: Yes (5) Noncompliance with medication regimen Is this a current diagnosis for this admission?: Yes Plan: Counseled in length.
[2019-10-06] MEDS ORDERED: DIGOXIN INJ 0.5 MG/2 ML AMPULE IV ONE (13:15)
--- NOTE | 2019-10-06 18:39 | Progress Note ---
Provider Note Provider Note: CARDIOLOGY PROGRESS NOTE by Dr. Kassidy Robledo on 10/06/2019. SUBJECTIVE: The patient denies any chest pain or discomfort. He states that if he walks around he gets short of breath. The patient has problems with his oxygen nation and desaturates. And hence the patient is to get home oxygen. There is no PND orthopnea or leg edema. There is no cough or sputum production. There is no bleeding on Eliquis. His renal function is improved. As you GFR now is greater than 60. His BUN is still elevated and hence a GI bleed is not excluded. Stool occult blood is awaited. He has no TIA CVA symptoms. When he was having problems with his oxygenation and complaining of shortness of breath his heart rate went up into the 140s. His blood pressure was 96 systolic. With 1 dose of digoxin 0.25 mg IV push his heart rate came down in the low 90s. The patient has no further complaints. PHYSICAL EXAMINATION: The patient mildly obese. In no acute distress. Selected Entries 10/06/19 10/06/19 12:22 14:00 Temperature 97.7 F Temperature Axillary Source Pulse Rate 96 Respiratory 21 H Rate Blood Pressure 97/64 L Blood Pressure 75 Mean BP Location Left Arm BP Position Supine O2 Sat by Pulse 96 Oximetry Oxygen Delivery Room Air Method HEAD: Is atraumatic normocephalic. EYES: Pupils are equal round regular reactive to light accommodation. Extraocular movements are normal. There is no conjunctival pallor present there is no scleral icterus. ENT is negative. NECK: There is evidence of surgery on the right side of the neck carotids are equal there is no bruits over the carotids. There is no lymphadenopathy. There is no goiter. There is no accessory muscle respiration use. Trachea central. LUNGS: Is clear to auscultation percussion. There is no rhonchi rales or wheezing. HEART: S1-S2 is heard. S1 is of variable intensity. There is no S3 gallop. There is no S4 gallop. There is murmur of mitral regurgitation present. There is no rub. ABDOMEN: Is soft. There is no paraspinal megaly. Bowel sounds are well heard. There is no tender areas of masses. EXTREMITIES: Femorals are slightly diminished. There is no femoral bruits. Leg pulses are diminished. There is no pedal edema. There is no DVT or cellulitis. 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 PSYCHIATRIC: Patient judgment insight are intact her affect is normal. Abnormal - 24 hr 10/06/19 10/06/19 05:52 05:52 Hgb 10.2 L Hct 33.0 L MCV 74 L MCH 22.9 L MCHC 30.8 L RDW 19.9 H Plt Count 136 L Band Neutrophils % 1 L Lymphocytes % (Manual) 8 L Monocytes % (Manual) 14 H BUN 58 H Chest X-Ray 10/02/19 15:53 IMPRESSION: Cardiomegaly without pulmonary edema. Small right pleural effusion. Lung Scan-VQ NM 10/03/19 00:00 IMPRESSION: Several small areas of decreased perfusion are seen peripherally in each lung. Intermediate probability of pulmonary embolus. Soft Tissue Neck CT 10/04/19 08:40 IMPRESSION: Prior left radical neck dissection. No obvious recurrence. Chest X-Ray 10/05/19 00:00 IMPRESSION: Cardiomegaly. Pleural effusions. Question CHF. Clinical correlation is needed. Head CT 10/05/19 00:00 IMPRESSION: No definite acute intracranial abnormality TECHNICAL DOCUMENTATION: Quality ID # 436: Final reports with documentation of one or more dose reduction techniques (e.g., Automated exposure control, adjustment of the mA and/or kV according to patient size, use of iterative reconstruction technique) copyright 2011 [employer]- All Rights Reserved IMPRESSION/RECOMMENDATION: 1.Elevated troponin I. This is trending down. This is secondary to supply demand mismatch. No evidence of non-ST elevation [place]. 2. Acute on chronic renal insufficiency most likely secondary to overdiuresis. Patient appears to be dry clinically. Will gently rehydrate the patient and hold the patient's Lasix. There is no evidence of congestive heart failure clinically or by chest x-ray. 3. Chronic atrial fibrillation: Rapid ventricular response secondary to non compliance with medication. At present heart rate is well controlled. Continue Eliquis and metoprolol.. 4. Indeterminate ventilation/perfusion scan for pulmonary embolism. This is a moot point since the patient is going to be on chronic anticoagulation for his atrial fibrillation. 5. Moderate mitral regurgitation. Once the patient blood pressure comes up we will start the patient on an afterload reducing agent, with the hope that the kidney function will improve with hydration. 6. Hypertension: Blood pressure remains stable. Will observe. Continue patient on metoprolol. Medications reviewed. Medications adjusted. Management plan discussed with the attending physician along with the medical regimen. Medical decision making is of moderate complexity. 50 minutes spent on this patient more than 50% of time spent in direct patient care. Will follow.
[2019-10-07] MEDS: METOPROLOL TARTRATE 25 MG TABLET PO SCH ×2 (05:13→17:30)
--- NOTE | 2019-10-07 09:56 | PDOC PROGRESS REPORT ---
Subjective Progress Note for:: 10/07/19 Subjective:: 10/07/2019-no complaint Reason For Visit: AFIB W/ RVR Physical Exam Vital Signs: Temp Pulse Resp BP Pulse Ox 97.4 F 101 H 17 122/78 99 10/07/19 07:21 10/07/19 07:21 10/07/19 07:21 10/07/19 07:21 10/07/19 07:50 Intake & Output 10/06/19 10/07/19 10/08/19 06:59 06:59 06:59 Intake Total 1417 1170 Output Total 635 525 Balance 782 645 Weight 107.5 kg 106.5 kg General appearance: PRESENT: no acute distress, well-developed, well-nourished Neck exam: ABSENT: carotid bruit, JVD, lymphadenopathy, thyromegaly Respiratory exam: PRESENT: clear to auscultation vasile. ABSENT: rales, rhonchi, wheezes Cardiovascular exam: PRESENT: irregular rhythm, +S1, +S2 Pulses: PRESENT: +1 pedal pulses bilateral Vascular exam: PRESENT: normal capillary refill GI/Abdominal exam: PRESENT: normal bowel sounds, soft. ABSENT: distended, guarding, mass, organolmegaly, rebound, tenderness Extremities exam: PRESENT: full ROM. ABSENT: calf tenderness, clubbing, pedal edema Neurological exam: PRESENT: alert, awake, oriented to person, oriented to place, oriented to time, oriented to situation, CN II-XII grossly intact. ABSENT: motor sensory deficit Psychiatric exam: PRESENT: appropriate affect, normal mood. ABSENT: homicidal ideation, suicidal ideation Skin exam: PRESENT: dry, intact, warm. ABSENT: cyanosis, rash Results Laboratory Results: 10/06/19 05:52 10/06/19 05:52 10/02/19 10/02/19 10/02/19 16:24 16:24 16:24 Creatine Kinase 241 H CK-MB (CK-2) 12.10 H Troponin I 0.780 NT-Pro-B Natriuret Pep 08416 H 10/03/19 10/03/19 10/03/19 17:10 22:44 22:44 Creatine Kinase 625 H CK-MB (CK-2) 20.00 H Troponin I 1.510 1.400 NT-Pro-B Natriuret Pep 1210/04/19 10/04/19 04:10 04:10 12:23 Creatine Kinase 559 H 632 H CK-MB (CK-2) 17.90 H Troponin I 1.130 NT-Pro-B Natriuret Pep 10/04/19 12:23 Creatine Kinase CK-MB (CK-2) 22.10 H Troponin I 0.866 NT-Pro-B Natriuret Pep Impressions: Lung Scan-VQ NM 10/03/19 00:00 IMPRESSION: Several small areas of decreased perfusion are seen peripherally in each lung. Intermediate probability of pulmonary embolus. Soft Tissue Neck CT 10/04/19 08:40 IMPRESSION: Prior left radical neck dissection. No obvious recurrence. Chest X-Ray 10/05/19 00:00 IMPRESSION: Cardiomegaly. Pleural effusions. Question CHF. Clinical correlation is needed. Head CT 10/05/19 00:00 IMPRESSION: No definite acute intracranial abnormality TECHNICAL DOCUMENTATION: Quality ID # 436: Final reports with documentation of one or more dose reduction techniques (e.g., Automated exposure control, adjustment of the mA and/or kV according to patient size, use of iterative reconstruction technique) copyright 2011 [employer]- All Rights Reserved Assessment and Plan - Diagnosis (1) Atrial fibrillation with rapid ventricular response Is this a current diagnosis for this admission?: Yes Plan: 10/04: Remains rate controlled. Continue metoprolol. Started on heparin drip for PE as well. 10/05: No clinical signs or symptoms of bleeding. Switch heparin drip to Eliquis. Keep dose at 2.5 mg bid for now as creatinine is still at 1.5. He will need the full dose of 5 mg bid when creatine is <1.5 now that he is also being treated for possible PE. Risks and benefits of anticoagulation including bleeding has been discussed with patient. 10/06: Continue Eliquis and metoprolol. 10/07/2019-continue Eliquis and metoprolol (2) BEVERLY (acute kidney injury) Is this a current diagnosis for this admission?: Yes Plan: Hold off on Lasix for now. 10/04: Started on IV fluids last night. 10/05: Resolved. 02/05/2019-resolved continue to follow (3) Elevated troponin Is this a current diagnosis for this admission?: Yes Plan: Likely demand, related to A. fib with RVR and pulmonary embolism. He denies chest pain. Reviewed previous EKGs. EKG changes are chronic and unchanged from previous EKG. 10/07/2019-stable continue to follow (4) Hypertension Is this a current diagnosis for this admission?: Yes Plan: 10/07/2019-stable continue to follow (5) Noncompliance with medication regimen Is this a current diagnosis for this admission?: Yes Plan: Counseled in length. 10/07/2019 of continued educated about importance of medication compliance - Time Time Spent with patient: 15-24 minutes - Inpatient Certification Based on my medical assessment, after consideration of the patient's comorbidities, presenting symptoms, or acuity I expect that the services needed warrant INPATIENT care.: Yes I certify that my determination is in accordance with my understanding of Medicare's requirements for reasonable and necessary INPATIENT services [42 CFR 412.3e].: Yes Medical Necessity: Significant Comorbidiites Make Outpatient Treatment Too Risky, Need Close Monitoring Due to Risk of Patient Decompensation
[2019-10-07] MEDS: APIXABAN 2.5 MG TABLET PO SCH ×2 (10:43→17:31)
[2019-10-07 12:56] LABS: ANION GAP 11 (5-19); BLOOD UREA NITROGEN 44 mg/dL (7-20); CALCIUM 8.6 mg/dL (8.4-10.2); CARBON DIOXIDE 26 mmol/L (22-30); CHLORIDE 99 mmol/L (98-107); GLUCOSE 148 mg/dL (75-110); POTASSIUM 4.4 mmol/L (3.6-5.0)
--- NOTE | 2019-10-07 18:47 | Progress Note ---
Provider Note Provider Note: CARDIOLOGY PROGRESS NOTE by Dr. Kassidy Robledo on 10/07/2019. Subjective: The patient denies any chest pain or discomfort there is no PND orthopnea or leg edema. He is in atrial fibrillation controlled ventricular response. At times at times his blood pressure seems to be on the lower side, but the patient is asymptomatic. There is no bleeding on Eliquis. There is no TIA CVA symptoms. His renal function is improving. Still unable to get occult stool blood test. His troponin has trended down. PHYSICAL EXAMINATION: The patient is mildly obese. In no acute distress. Selected Entries 10/07/19 10/07/19 11:21 15:36 Temperature 98.4 F 98.5 F Temperature Oral Oral Source Pulse Rate 97 88 Respiratory 18 17 Rate Blood Pressure 92/77 L 124/88 H Blood Pressure 82 100 Mean BP Location Right Arm Right Arm BP Position Supine Supine O2 Sat by Pulse 100 100 Oximetry Oxygen Flow 2.00 2.00 Rate Oxygen Delivery Nasal Cannula Nasal Cannula Method HEAD: Is atraumatic normocephalic. EYES: Pupils are equal round regular reactive to light accommodation. Extraocular movements are normal. There is no conjunctival pallor present there is no scleral icterus. ENT is negative. NECK: There is evidence of surgery on the right side of the neck carotids are equal there is no bruits over the carotids. There is no lymphadenopathy. There is no goiter. There is no accessory muscle respiration use. Trachea central. LUNGS: Is clear to auscultation percussion. There is no rhonchi rales or wheezing. HEART: S1-S2 is heard. S1 is of variable intensity. There is no S3 gallop. There is no S4 gallop. There is murmur of mitral regurgitation pre sent. There is no rub. ABDOMEN: Is soft. There is no paraspinal megaly. Bowel sounds are well heard. There is no tender areas of masses. EXTREMITIES: Femorals are slightly diminished. There is no femoral bruits. Leg pulses are diminished. There is no pedal edema. There is no DVT or cellulitis. 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 PSYCHIATRIC: Patient judgment insight are intact her affect is normal. Abnormal - 24 hr 10/07/19 10:45 Sodium 136.3 L BUN 44 H Glucose 148 H Labs- All tests 24 hr 10/07/19 10/07/19 10:45 10:45 Sodium 136.3 L Potassium 4.4 Chloride 99 Carbon Dioxide 26 Anion Gap 11 BUN 44 H Creatinine 0.93 Est GFR ( Amer) > 60 Est GFR (MDRD) Non-Af > 60 Glucose 148 H Calcium 8.6 Troponin I 0.151 Chest X-Ray 10/02/19 15:53 IMPRESSION: Cardiomegaly without pulmonary edema. Small right pleural effusion. Lung Scan-VQ NM 10/03/19 00:00 IMPRESSION: Several small areas of decreased perfusion are seen peripherally in each lung. Intermediate probability of pulmonary embolus. Soft Tissue Neck CT 10/04/19 08:40 IMPRESSION: Prior left radical neck dissection. No obvious recurrence. Chest X-Ray 10/05/19 00:00 IMPRESSION: Cardiomegaly. Pleural effusions. Question CHF. Clinical correlation is needed. Head CT 10/05/19 00:00 IMPRESSION: No definite acute intracranial abnormality TECHNICAL DOCUMENTATION: Quality ID # 436: Final reports with documentation of one or more dose reduction techniques (e.g., Automated exposure control, adjustment of the mA and/or kV according to patient size, use of iterative reconstruction technique) copyright 2010 [employer]- All Rights Reserved IMPRESSION/RECOMMENDATION: 1.Elevated troponin I. This is trending down. This is secondary to supply demand mismatch. No evidence of non-ST elevation [place]. 2. Acute on chronic renal insufficiency most likely secondary to overdiuresis. Patient appears to be dry clinically. Will gently rehydrate the patient and hold the patient's Lasix. There is no evidence of congestive heart failure clinically or by chest x-ray. The patient's renal function seems to be improving, and the patient's GFR is normal. 3. Chronic atrial fibrillation: Rapid ventricular response secondary to noncompliance with medication. At present heart rate is well controlled. Continue Eliquis and metoprolol.. 4. Indeterminate ventilation/perfusion scan for pulmonary embolism. This is a moot point since the patient is going to be on chronic anticoagulation for his atrial fibrillation. 5. Moderate mitral regurgitation. Once the patient blood pressure comes up we will start the patient on an afterload reducing agent, with the hope that the kidney function will improve with hydration. 6. Hypertension: Blood pressure remains stable. Will observe. Continue patient on metoprolol. Medications reviewed. Medications adjusted. Management plan discussed with the attending physician along with the medical regimen. Medical decision making is of moderate complexity. 40 minutes spent on this patient more than 50% of time spent in direct patient care. Will follow.
[2019-10-08] MEDS: METOPROLOL TARTRATE 25 MG TABLET PO SCH (06:17)
--- NOTE | 2019-10-08 09:38 | PDOC PROGRESS REPORT ---
Subjective Progress Note for:: 10/08/19 Subjective:: 10/07/2019-no complaint 10/08/2019-no complaints this a.m. Reason For Visit: AFIB W/ RVR Physical Exam Vital Signs: Temp Pulse Resp BP Pulse Ox 98.0 F 89 17 109/90 H 96 10/08/19 07:15 10/08/19 07:15 10/08/19 07:15 10/08/19 07:15 10/08/19 07:15 Intake & Output 10/07/19 10/08/19 10/09/19 06:59 06:59 06:59 Intake Total 1170 780 Output Total 525 900 Balance 645 -120 Weight 106.5 kg 107.6 kg General appearance: PRESENT: no acute distress, well-developed, well-nourished Neck exam: ABSENT: carotid bruit, JVD, lymphadenopathy, thyromegaly Respiratory exam: PRESENT: clear to auscultation vasile. ABSENT: rales, rhonchi, wheezes Cardiovascular exam: PRESENT: irregular rhythm, +S1, +S2 Pulses: PRESENT: normal dorsalis pedis pul Vascular exam: PRESENT: normal capillary refill GI/Abdominal exam: PRESENT: normal bowel sounds, soft. ABSENT: distended, guar ding, mass, organolmegaly, rebound, tenderness Extremities exam: PRESENT: full ROM. ABSENT: calf tenderness, clubbing, pedal edema Neurological exam: PRESENT: alert, awake, oriented to person, oriented to place, oriented to time, oriented to situation, CN II-XII grossly intact. ABSENT: motor sensory deficit Psychiatric exam: PRESENT: appropriate affect, normal mood. ABSENT: homicidal ideation, suicidal ideation Skin exam: PRESENT: dry, intact, warm. ABSENT: cyanosis, rash Results Laboratory Results: 10/06/19 05:52 10/07/19 10:45 10/07/19 10:45 Sodium 136.3 L Potassium 4.4 Chloride 99 Carbon Dioxide 26 Anion Gap 11 BUN 44 H Creatinine 0.93 Est GFR ( Amer) > 60 Glucose 148 H Calcium 8.6 10/02/19 10/02/19 10/02/19 16:24 16:24 16:24 Creatine Kinase 241 H CK-MB (CK-2) 12.10 H Troponin I 0.780 NT-Pro-B Natriuret Pep 38102 H 10/03/19 10/03/19 10/03/19 17:10 22:44 22:44 Creatine Kinase 625 H CK-MB (CK-2) 20.00 H Troponin I 1.510 1.400 NT-Pro-B Natriuret Pep 10/04/19 10/04/19 10/04/19 04:10 04:10 12:23 Creatine Kinase 559 H 632 H CK-MB (CK-2) 17.90 H Troponin I 1.130 NT-Pro-B Natriuret Pep 10/04/19 10/07/19 12:23 10:45 Creatine Kinase CK-MB (CK-2) 22.10 H Troponin I 0.866 0.151 NT-Pro-B Natriuret Pep Impressions: Lung Scan-VQ NM 10/03/19 00:00 IMPRESSION: Several small areas of decreased perfusion are seen peripherally in each lung. Intermediate probability of pulmonary embolus. Soft Tissue Neck CT 10/04/19 08:40 IMPRESSION: Prior left radical neck dissection. No obvious recurrence. Chest X-Ray 10/05/19 00:00 IMPRESSION: Cardiomegaly. Pleural effusions. Question CHF. Clinical correlation is needed. Head CT 10/05/19 00:00 IMPRESSION: No definite acute intracranial abnormality TECHNICAL DOCUMENTATION: Quality ID # 436: Final reports with documentation of one or more dose reduction techniques (e.g., Automated exposure control, adjustment of the mA and/or kV according to patient size, use of iterative reconstruction technique) copyright 2011 [employer]- All Rights Reserved Assessment and Plan - Diagnosis (1) Atrial fibrillation with rapid ventricular response Is this a current diagnosis for this admission?: Yes Plan: 10/04: Remains rate controlled. Continue metoprolol. Started on heparin drip for PE as well. 10/05: No clinical signs or symptoms of bleeding. Switch heparin drip to Eliquis. Keep dose at 2.5 mg bid for now as creatinine is still at 1.5. He will need the full dose of 5 mg bid when creatine is <1.5 now that he is also being treated for possible PE. Risks and benefits of anticoagulation including bleeding has been discussed with patient. 10/06: Continue Eliquis and metoprolol. 10/07/2019-continue Eliquis and metoprolol 10/16-continue Eliquis and metoprolol per cardiology (2) BEVERLY (acute kidney injury) Is this a current diagnosis for this admission?: Yes Plan: Hold off on Lasix for now. 10/04: Started on IV fluids last night. 10/05: Resolved. 02/05/2019-resolved continue to follow 10/08/2019-stable (3) Elevated troponin Is this a current diagnosis for this admission?: Yes Plan: Likely demand, related to A. fib with RVR and pulmonary embolism. He denies chest pain. Reviewed previous EKGs. EKG changes are chronic and unchanged from previous EKG. 10/07/2019-stable continue to follow 10/08/2019-trending down. Cardiology aware. No change in plan of care at this time (4) Hypertension Is this a current diagnosis for this admission?: Yes Plan: 10/07/2019-stable continue to follow 10/08/2019-stable (5) Noncompliance with medication regimen Is this a current diagnosis for this admission?: Yes Plan: Counseled in length. 10/07/2019 of continued educated about importance of medication compliance 10/08/2019-stable continue to educate with importance of medical compliance - Time Time Spent with patient: 15-24 minutes - Inpatient Certification Based on my medical assessment, after consideration of the patient's comorbidities, presenting symptoms, or acuity I expect that the services needed warrant INPATIENT care.: Yes I certify that my determination is in accordance with my understanding of Medicare's requirements for reasonable and necessary INPATIENT services [42 CFR 412.3e].: Yes Medical Necessity: Significant Comorbidiites Make Outpatient Treatment Too Risky, Need Close Monitoring Due to Risk of Patient Decompensation
[2019-10-08] MEDS: FUROSEMIDE 20 MG TABLET PO SCH (12:31)
[2019-10-08] MEDS: ASPIRIN 325 MG TABLET PO SCH (12:31)
[2019-10-08] MEDS: APIXABAN 2.5 MG TABLET PO SCH ×2 (12:31→18:43)
[2019-10-08] MEDS: ATENOLOL 50 MG TABLET PO SCH ×2 (12:33→21:19)
[2019-10-08 18:56] LABS: APPEARANCE,URINE CLEAR; BILIRUBIN,URINE NEGATIVE (NEGATIVE); COLOR,URINE YELLOW; GLUCOSE, URINE NEGATIVE (NEGATIVE); KETONES,URINE NEGATIVE (NEGATIVE); PROTEIN,URINE NEGATIVE (NEGATIVE); URINE SPECIFIC GRAVITY 1.011; UROBILINOGEN,URINE NEGATIVE mg/dL (<2.0)
--- NOTE | 2019-10-09 09:04 | PDOC PROGRESS REPORT ---
Subjective Progress Note for:: 10/09/19 Subjective:: 10/07/2019-no complaint 10/08/2019-no complaints this a.m. 10/09/2019-patient is hallucinating Reason For Visit: AFIB W/ RVR Physical Exam Vital Signs: Temp Pulse Resp BP Pulse Ox 97.4 F 65 17 117/86 H 93 10/09/19 08:33 10/09/19 08:33 10/09/19 08:33 10/09/19 08:33 10/09/19 08:33 Intake & Output 10/08/19 10/09/19 10/10/19 06:59 06:59 06:59 Intake Total 780 620 Output Total 900 600 Balance -120 20 Weight 107.6 kg 106.8 kg General appearance: PRESENT: no acute distress, well-developed, well-nourished Neck exam: ABSENT: carotid bruit, JVD, lymphadenopathy, thyromegaly Respiratory exam: PRESENT: clear to auscultation vasile. ABSENT: rales, rhonchi, wheezes Cardiovascular exam: PRESENT: irregular rhythm, +S1, +S2. ABSENT: diastolic murmur, rubs, systolic murmur Pulses: PRESENT: +1 pedal pulses bilateral Vascular exam: PRESENT: normal capillary refill GI/Abdominal exam: PRESENT: normal bowel sounds, soft. ABSENT: distended, guarding, mass, organolmegaly, rebound, tenderness Extremities exam: PRESENT: full ROM. ABSENT: calf tenderness, clubbing, pedal edema Neurological exam: PRESENT: alert, awake, oriented to person, oriented to place, oriented to time, oriented to situation, CN II-XII grossly intact, other - Hallucinating. ABSENT: motor sensory deficit Psychiatric exam: PRESENT: appropriate affect, normal mood, other - Hallucinating. ABSENT: homicidal ideation, suicidal ideation Skin exam: PRESENT: dry, intact, warm. ABSENT: cyanosis, rash Results Laboratory Results: 10/06/19 05:52 10/07/19 10:45 10/08/19 18:30 Urine Color YELLOW Urine Appearance CLEAR Urine pH 5.0 Ur Specific [place] 1.011 Urine Protein NEGATIVE Urine Glucose (UA) NEGATIVE Urine Ketones NEGATIVE Urine Blood NEGATIVE Urine RBC (Auto) 1 10/02/19 10/02/19 10/02/19 16:24 16:24 16:24 Creatine Kinase 241 H CK-MB (CK-2) 12.10 H Troponin I 0.780 NT-Pro-B Natriuret Pep 70885 H 10/03/19 10/03/19 10/03/19 17:10 22:44 22:44 Creatine Kinase 625 H CK-MB (CK-2) 20.00 H Troponin I 1.510 1.400 NT-Pro-B Natriuret Pep 10/04/19 10/04/19 10/04/19 04:10 04:10 12:23 Creatine Kinase 559 H 632 H CK-MB (CK-2) 17.90 H Troponin I 1.130 NT-Pro-B Natriuret Pep 10/04/19 10/07/19 12:23 10:45 Creatine Kinase CK-MB (CK-2) 22.10 H Troponin I 0.866 0.151 NT-Pro-B Natriuret Pep Impressions: Lung Scan-VQ NM 10/03/19 00:00 IMPRESSION: Several small areas of decreased perfusion are seen peripherally in each lung. Intermediate probability of pulmonary embolus. Soft Tissue Neck CT 10/04/19 08:40 IMPRESSION: Prior left radical neck dissection. No obvious recurrence. Chest X-Ray 10/05/19 00:00 IMPRESSION: Cardiomegaly. Pleural effusions. Question CHF. Clinical correlation is needed. Head CT 10/05/19 00:00 IMPRESSION: No definite acute intracranial abnormality TECHNICAL DOCUMENTATION: Quality ID # 436: Final reports with documentation of one or more dose reduction techniques (e.g., Automated exposure control, adjustment of the mA and/or kV according to patient size, use of iterative reconstruction technique) copyright 2011 [employer]- All Rights Reserved Assessment and Plan - Diagnosis (1) Atrial fibrillation with rapid ventricular response Is this a current diagnosis for this admission?: Yes Plan: 10/04: Remains rate controlled. Continue metoprolol. Started on heparin drip for PE as well. 10/05: No clinical signs or symptoms of bleeding. Switch heparin drip to Eliquis. Keep dose at 2.5 mg bid for now as creatinine is still at 1.5. He will need the full dose of 5 mg bid when creatine is <1.5 now that he is also being treated for possible PE. Risks and benefits of anticoagulation including bleeding has been discussed with patient. 10/06: Continue Eliquis and metoprolol. 10/07/2019-continue Eliquis and metoprolol 10/16-continue Eliquis and metoprolol per cardiology 10/09/2019-stable continue Eliquis and metoprolol (2) BEVERLY (acute kidney injury) Is this a current diagnosis for this admission?: Yes Plan: Hold off on Lasix for now. 10/04: Started on IV fluids last night. 10/05: Resolved. 02/05/2019-resolved continue to follow 10/08/2019-stable 10/09/2019-stable (3) Elevated troponin Is this a current diagnosis for this admission?: Yes Plan: Likely demand, related to A. fib with RVR and pulmonary embolism. He denies chest pain. Reviewed previous EKGs. EKG changes are chronic and unchanged from previous EKG. 10/07/2019-stable continue to follow 10/08/2019-trending down. Cardiology aware. No change in plan of care at this time 10/09/2019-stable (4) Hypertension Is this a current diagnosis for this admission?: Yes Plan: 10/07/2019-stable continue to follow 10/08/2019-stable 10/09/2019-stable (5) Noncompliance with medication regimen Is this a current diagnosis for this admission?: Yes Plan: Counseled in length. 10/07/2019 of continued educated about importance of medication compliance 10/08/2019-stable continue to educate with importance of medical compliance 10/09/2019-continue education about medical compliance (6) Hallucinations Is this a current diagnosis for this admission?: Yes Plan: 10/09/2019-medication change per Dr. Meena CHAVEZ metoprolol place patient on atenolol as per Dr. Robledo metoprolol can cause hallucinations. - Time Time Spent with patient: 15-24 minutes - Inpatient Certification Based on my medical assessment, after consideration of the patient's comorbidities, presenting symptoms, or acuity I expect that the services needed warrant INPATIENT care.: Yes I certify that my determination is in accordance with my understanding of Medicare's requirements for reasonable and necessary INPATIENT services [42 CFR 412.3e].: Yes Medical Necessity: Significant Comorbidiites Make Outpatient Treatment Too Risky, Need Close Monitoring Due to Risk of Patient Decompensation
[2019-10-09] MEDS: ATENOLOL 50 MG TABLET PO SCH ×2 (09:35→22:26)
[2019-10-09] MEDS: ASPIRIN 325 MG TABLET PO SCH (09:35)
[2019-10-09] MEDS: FUROSEMIDE 20 MG TABLET PO SCH (09:36)
[2019-10-09] MEDS: APIXABAN 2.5 MG TABLET PO SCH ×2 (09:36→18:19)
[2019-10-09] MEDS: TAMSULOSIN HCL 0.4 MG CAP.SR.24H PO SCH (14:02)
[2019-10-10 06:08] LABS: HEMATOCRIT 35.2 % (37.9-51.0); HEMOGLOBIN 10.7 g/dL (13.5-17.0); MEAN CORPUSCULAR HEMOGLOBIN 22.3 pg (27.0-33.4); MEAN CORPUSCULAR HGB CONC 30.3 g/dL (32.0-36.0); MEAN CORPUSCULAR VOLUME 74 fl (80-97); PLATELET COUNT 146 10^3/uL (150-450); RED BLOOD COUNT 4.78 10^6/uL (4.35-5.55); RED CELL DISTRIBUTION WIDTH 20.4 % (11.5-14.0); WHITE BLOOD COUNT 11.4 10^3/uL (4.0-10.5)
[2019-10-10 06:35] LABS: ANION GAP 12 (5-19); BLOOD UREA NITROGEN 40 mg/dL (7-20); CARBON DIOXIDE 27 mmol/L (22-30); CHLORIDE 97 mmol/L (98-107); GLUCOSE 110 mg/dL (75-110); POTASSIUM 4.8 mmol/L (3.6-5.0)
--- NOTE | 2019-10-10 09:24 | PDOC DISCHARGE SUMMARY ---
Impression - Admit/DC Date/PCP Admission Date/Primary Care Provider: 10/03/19 14:09 [facility] Discharge Date: 10/10/19 - Discharge Diagnosis (1) Atrial fibrillation with rapid ventricular response Is this a current diagnosis for this admission?: Yes (2) BEVERLY (acute kidney injury) Is this a current diagnosis for this admission?: Yes (3) Elevated troponin Is this a current diagnosis for this admission?: Yes (4) Hypertension Is this a current diagnosis for this admission?: Yes (5) Noncompliance with medication regimen Is this a current diagnosis for this admission?: Yes (6) Hallucinations Is this a current diagnosis for this admission?: Yes - Additional Information Resuscitation Status: Full Code Discharge Diet: As Tolerated Discharge Activity: Activity As Tolerated Referrals: JAMIE BERG MD [ACTIVE STAFF] - [facility] [Primary Care Provider] - Follow up as needed (The patient will make his own follow up appointment.) Prescriptions: Carvedilol [Coreg 3.125 mg Tablet] 3.125 mg PO Q12 #60 tablet Apixaban [Eliquis 2.5 mg Tablet] 2.5 mg PO BID #60 tablet Tamsulosin HCl [Flomax 0.4 mg Cap.sr] 0.4 mg PO DAILY #30 cap.sr.24h Furosemide [Lasix 20 mg Tablet] 20 mg PO DAILY #30 tablet Atenolol [Tenormin 50 mg Tablet] 25 mg PO Q12 #60 tablet Home Medications: Aspirin/Caffeine [Edith Back-Body 500-32.5 mg] 1 tab-cap PO DAILY 10/02/19 Multivit-Min/Folic/Vit K/Lycop [One-A-Day Men's 50 Plus Tablet] 1 each PO DAILY 10/02/19 Apixaban [Eliquis 2.5 mg Tablet] 2.5 mg PO BID #60 tablet 10/10/19 Aspirin [Aspirin 325 mg Tablet] 325 mg PO DAILY tablet 10/10/19 Atenolol [Tenormin 50 mg Tablet] 25 mg PO Q12 #60 tablet 10/10/19 Carvedilol [Coreg 3.125 mg Tablet] 3.125 mg PO Q12 #60 tablet 10/10/19 Furosemide [Lasix 20 mg Tablet] 20 mg PO DAILY #30 tablet 10/10/19 Tamsulosin HCl [Flomax 0.4 mg Cap.sr] 0.4 mg PO DAILY #30 cap.sr.24h 10/10/19 History of Present Illiness History of Present Illness: JUANY OLIVERA is a 84 year old male who presented to the emergency department with palpitations and shortness of breath. Hospital Course Hospital Course: Patient 84-year-old gentleman presented to the ER with shortness of breath and palpitations. Patient has a past medical history of hypertension, neck cancer, chronic atrial fibrillation with noncompliance and mild regurgitation. Patient states that shortness of breath is increasing for the last 2 weeks and he did report associated palpitations. Denies any chest pain but states his shortness of breath was getting worse at home with dizziness and dyspnea on exertion. Patient does admit to having bipedal edema in the past 2 weeks and in the ER was found to have A. fib with RVR with heart rate in the 140s. He was given 2 doses IV Cardizem and started on Cardizem drip. Patient was placed on IMCU treated aggressively. Patient was placed on Eliquis 2.5 mg p.o. twice daily for anticoagulation and remains in A. fib flutter at this time. Patient will continue with Eliquis at home atenolol 25 mg p.o. twice daily Lasix 20 m p.o. daily and aspirin therapy. Patient did show positive for non-STEMI and is being treated medically with beta-blockers and aspirin. Patient will follow-up with her primary care within 1 week. Echocardiogram showed a left ventricular ejection fraction of 60% with mild left ventricle dilation. Physical Exam Vital Signs: Temp Pulse Resp BP Pulse Ox 97.4 F 75 18 119/85 98 10/10/19 07:45 10/10/19 07:45 10/10/19 07:45 10/10/19 08:46 10/10/19 07:45 Intake & Output 10/09/19 10/10/19 10/11/19 06:59 06:59 06:59 Intake Total 620 610 Output Total 600 850 Balance 20 -240 Weight 106.8 kg 106.6 kg General appearance: PRESENT: no acute distress, well-developed, well-nourished Head exam: PRESENT: atraumatic, normocephalic Eye exam: PRESENT: conjunctiva pink, EOMI, PERRLA. ABSENT: scleral icterus Ear exam: PRESENT: normal external ear exam Mouth exam: PRESENT: moist, tongue midline Neck exam: ABSENT: carotid bruit, JVD, lymphadenopathy, thyromegaly Respiratory exam: PRESENT: clear to auscultation vasile. ABSENT: rales, rhonchi, wheezes Cardiovascular exam: PRESENT: irregular rhythm, +S1, +S2. ABSENT: diastolic murmur, rubs, systolic murmur Pulses: PRESENT: normal dorsalis pedis pul Vascular exam: PRESENT: normal capillary refill GI/Abdominal exam: PRESENT: normal bowel sounds, soft. ABSENT: distended, guarding, mass, organolmegaly, rebound, tenderness Rectal exam: PRESENT: deferred Extremities exam: PRESENT: full ROM. ABSENT: calf tenderness, clubbing, pedal edema Neurological exam: PRESENT: alert, awake, oriented to person, oriented to place, oriented to time, oriented to situation, CN II-XII grossly intact. ABSENT: motor sensory deficit Psychiatric exam: PRESENT: appropriate affect, normal mood. ABSENT: homicidal ideation, suicidal ideation Skin exam: PRESENT: dry, intact, warm. ABSENT: cyanosis, rash Results Laboratory Results: WBC 11.4 10^3/uL (4.0-10.5) H 10/10/19 05:29 RBC 4.78 10^6/uL (4.35-5.55) 10/10/19 05:29 Hgb 10.7 g/dL (13.5-17.0) L 10/10/19 05:29 Hct 35.2 % (37.9-51.0) L 10/10/19 05:29 MCV 74 fl (80-97) L 10/10/19 05:29 MCH 22.3 pg (27.0-33.4) L 10/10/19 05:29 MCHC 30.3 g/dL (32.0-36.0) L 10/10/19 05:29 RDW 20.4 % (11.5-14.0) H 10/10/19 05:29 Plt Count 146 10^3/uL (150-450) L 10/10/19 05:29 Lymph % (Auto) Not Reportable 10/06/19 05:52 [place] % (Auto) Not Reportable 10/06/19 05:52 Eos % (Auto) Not Reportable 10/06/19 05:52 Baso % (Auto) Not Reportable 10/06/19 05:52 Absolute Neuts (auto) Not Reportable 10/06/19 05:52 Absolute Lymphs (auto) Not Reportable 10/06/19 05:52 Absolute Monos (auto) Not Reportable 10/06/19 05:52 Absolute Eos (auto) Not Reportable 10/06/19 05:52 Absolute Basos (auto) Not Reportable 10/06/19 05:52 Total Counted 100 10/06/19 05:52 Seg Neutrophils % Not Reportable 10/06/19 05:52 Seg Neuts % (Manual) 77 % (42-78) 10/06/19 05:52 Band Neutrophils % 1 % (3-5) L 10/06/19 05:52 Lymphocytes % (Manual) 8 % (13-45) L 10/06/19 05:52 Monocytes % (Manual) 14 % (3-13) H 10/06/19 05:52 Eosinophils % (Manual) 0 % (0-6) 10/06/19 05:52 Basophils % (Manual) 0 % (0-2) 10/06/19 05:52 Abs Neuts (Manual) 5.5 10^3/uL (1.7-8.2) 10/06/19 05:52 Abs Lymphs (Manual) 0.6 10^3/uL (0.5-4.7) 10/06/19 05:52 Abs Monocytes (Manual) 1.0 10^3/uL (0.1-1.4) 10/06/19 05:52 Absolute Eos (Manual) 0.0 10^3/uL (0.0-0.6) 10/06/19 05:52 Abs Basophils (Manual) 0.0 10^3/uL (0.0-0.2) 10/06/19 05:52 Nucleated RBCs 9 /100 WBC (0) 10/06/19 05:52 Giant Platelets PRESENT 10/05/19 06:15 Platelet Comment ADEQUATE 10/06/19 05:52 Polychromasia 1+ 10/06/19 05:52 Hypochromasia 1+ 10/06/19 05:52 Anisocytosis 2+ 10/06/19 05:52 Microcytosis 1+ 10/06/19 05:52 Tear Drop Cells SLIGHT 10/02/19 16:24 Ovalocytes 1+ 10/05/19 06:15 PT 37.5 SEC (11.4-15.4) H 10/04/19 08:39 INR 3.69 10/04/19 08:39 APTT 47.8 SEC (23.5-35.8) H 10/05/19 08:11 Sodium 136.4 mmol/L (137-145) L 10/10/19 05:29 Potassium 4.8 mmol/L (3.6-5.0) 10/10/19 05:29 Chloride 97 mmol/L (98-107) L 10/10/19 05:29 Carbon Dioxide 27 mmol/L (22-30) 10/10/19 05:29 Anion Gap 12 (5-19) 10/10/19 05:29 BUN 40 mg/dL (7-20) H 10/10/19 05:29 Creatinine 0.96 mg/dL (0.52-1.25) 10/10/19 05:29 Est GFR ( Amer) > 60 (>60) 10/10/19 05:29 Est GFR (MDRD) Non-Af > 60 (>60) 10/10/19 05:29 Glucose 110 mg/dL (75-110) 10/10/19 05:29 POC Glucose 105 mg/dL (70-110) 10/05/19 04:31 Lactic Acid 2.0 mmol/L (0.7-2.1) 10/05/19 08:11 Calcium 9.0 mg/dL (8.4-10.2) 10/10/19 05:29 Total Bilirubin 3.8 mg/dL (0.2-1.3) H 10/02/19 16:24 Direct Bilirubin 1.3 mg/dL (0.0-0.4) H 10/02/19 16:24 Neonat Total Bilirubin Not Reportable 10/02/19 16:24 Neonat Direct Bilirubin Not Reportable 10/02/19 16:24 Neonat Indirect Bili Not Reportable 10/02/19 16:24 AST 673 U/L (17-59) H 10/02/19 16:24 ALT 467 U/L (<50) 10/02/19 16:24 Alkaline Phosphatase 97 U/L (38-126) 10/02/19 16:24 Creatine Kinase 632 U/L (55-170) H 10/04/19 12:23 CK-MB (CK-2) 22.10 ng/mL (<4.55) H 10/04/19 12:23 Troponin I 0.151 ng/mL 10/07/19 10:45 NT-Pro-B Natriuret Pep 41697 pg/mL (<450) H 10/02/19 16:24 Total Protein 7.6 g/dL (6.3-8.2) 10/02/19 16:24 Albumin 4.3 g/dL (3.5-5.0) 10/02/19 16:24 TSH 4.65 uIU/mL (0.47-4.68) 10/02/19 16:24 Urine Color YELLOW 10/08/19 18:30 Urine Appearance CLEAR 10/08/19 18:30 Urine pH 5.0 (5.0-9.0) 10/08/19 18:30 Ur Specific [place] 1.011 10/08/19 18:30 Urine Protein NEGATIVE mg/dL (NEGATIVE) 10/08/19 18:30 Urine Glucose (UA) NEGATIVE mg/dL (NEGATIVE) 10/08/19 18:30 Urine Ketones NEGATIVE mg/dL (NEGATIVE) 10/08/19 18:30 Urine Blood NEGATIVE (NEGATIVE) 10/08/19 18:30 Urine Nitrite NEGATIVE (NEGATIVE) 10/04/19 09:00 Urine Nitrite (Reflex) NEGATIVE (NEGATIVE) 10/08/19 18:30 Urine Bilirubin NEGATIVE (NEGATIVE) 10/08/19 18:30 Urine Urobilinogen NEGATIVE mg/dL (<2.0) 10/08/19 18:30 Ur Leukocyte Esterase NEGATIVE (NEGATIVE) 10/04/19 09:00 Leukocyte Esterase Rfl TRACE (NEGATIVE) H 10/08/19 18:30 Urine WBC (Auto) 0 /HPF 10/04/19 09:00 Urine RBC (Auto) 1 /HPF 10/08/19 18:30 U Hyaline Cast (Auto) 6 /LPF 10/08/19 18:30 Urine Bacteria (Auto) TRACE /HPF 10/08/19 18:30 Urine WBC (Reflex) 3 /HPF 10/08/19 18:30 Squamous Epi Cells Auto <1 /HPF 10/04/19 09:00 Urine Mucus (Auto) OCC /LPF 10/08/19 18:30 Urine Ascorbic Acid NEGATIVE (NEGATIVE) 10/08/19 18:30 10/02/19 10/02/19 10/03/19 16:24 16:24 17:10 CK-MB (CK-2) 12.10 H Troponin I 0.780 1.510 NT-Pro-B Natriuret Pep 23279 H 10/03/19 10/04/19 10/04/19 22:44 04:10 12:23 CK-MB (CK-2) 20.00 H 17.90 H 22.10 H Troponin I 1.400 1.130 0.866 NT-Pro-B Natriuret Pep 10/07/19 10:45 CK-MB (CK-2) Troponin I 0.151 NT-Pro-B Natriuret Pep Impressions: Chest X-Ray 10/02/19 15:53 IMPRESSION: Cardiomegaly without pulmonary edema. Small right pleural effusion. Lung Scan-VQ NM 10/03/19 00:00 IMPRESSION: Several small areas of decreased perfusion are seen peripherally in each lung. Intermediate probability of pulmonary embolus. Soft Tissue Neck CT 10/04/19 08:40 IMPRESSION: Prior left radical neck dissection. No obvious recurrence. Chest X-Ray 10/05/19 00:00 IMPRESSION: Cardiomegaly. Pleural effusions. Question CHF. Clinical correlation is needed. Head CT 10/05/19 00:00 IMPRESSION: No definite acute intracranial abnormality TECHNICAL DOCUMENTATION: Quality ID # 436: Final reports with documentation of one or more dose reduction techniques (e.g., Automated exposure control, adjustment of the mA and/or kV according to patient size, use of iterative reconstruction technique) copyright 2011 [employer]- All Rights Reserved Plan Goals: The patient will make his own follow up appointment. Time Spent: Greater than 30 Minutes Stroke Is this a Stroke Patient?: No Acute Heart Failure - Is this a Heart Failure Patient?: No
[2019-10-10] MEDS: FUROSEMIDE 20 MG TABLET PO SCH (11:48)
[2019-10-10] MEDS: APIXABAN 2.5 MG TABLET PO SCH ×2 (11:48→18:44)
[2019-10-10] MEDS: ATENOLOL 50 MG TABLET PO SCH ×2 (11:48→21:56)
[2019-10-10] MEDS: TAMSULOSIN HCL 0.4 MG CAP.SR.24H PO SCH (11:48)
[2019-10-10] MEDS: ASPIRIN 325 MG TABLET PO SCH (11:48)
--- NOTE | 2019-10-10 19:31 | Progress Note ---
Provider Note Provider Note: CARDIOLOGY PROGRESS NOTE by Dr. Kassidy Robledo on 10/10/2019. SUBJECTIVE: The patient has no further visual hallucinations. His atrial fibrillation is rate controlled. There is no bleeding on Eliquis. He denies any shortness of breath with oxygen on. He has no PND orthopnea. There is no leg edema. There is no anginal symptoms. There is no ventricular arrhythmias seen on the monitor. There is no bleeding on Eliquis. There is no TIA CVA symptoms. PHYSICAL EXAMINATION: The patient is mildly obese. In no acute distress Selected Entries 10/10/19 10/10/19 16:05 17:00 Temperature 98.6 F Temperature Oral Source Heart Rate ( 70 Monitors) Respiratory 16 Rate Blood Pressure 106/56 L Blood Pressure 72 Mean BP Location Left Arm BP Position Supine O2 Sat by Pulse 99 Oximetry Oxygen Flow 3.00 Rate Oxygen Delivery Nasal Cannula Method HEAD: Is atraumatic normocephalic. EYES: Pupils are equal round regular reactive to light accommodation. Extraocular movements are normal. There is no conjunctival pallor present there is no scleral icterus. ENT is negative. NECK: There is evidence of surgery on the right side of the neck carotids are equal there is no bruits over the carotids. There is no lymphadenopathy. There is no goiter. There is no accessory muscle respiration use. Trachea central. LUNGS: Is clear to auscultation percussion. There is no rhonchi rales or wheezing. HEART: S1-S2 is heard. S1 is of variable intensity. There is no S3 gallop. There is no S4 gallop. There is murmur of mitral regurgitation present. There is no rub. ABDOMEN: Is soft. There is no paraspinal megaly. Bowel sounds are well heard. There is no tender areas of masses. EXTREMITIES: Femorals are slightly diminished. There is no femoral bruits. Leg pulses are diminished. There is no pedal edema. There is no DVT or cellulitis. 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 PSYCHIATRIC: Patient judgment insight are intact her affect is normal. Labs- All tests 24 hr 10/10/19 10/10/19 10/10/19 05:29 05:29 10:40 WBC 11.4 H RBC 4.78 Hgb 10.7 L Hct 35.2 L MCV 74 L MCH 22.3 L MCHC 30.3 L RDW 20.4 H Plt Count 146 L Sodium 136.4 L Potassium 4.8 Chloride 97 L Carbon Dioxide 27 Anion Gap 12 BUN 40 H Creatinine 0.96 Est GFR ( Amer) > 60 Est GFR (MDRD) Non-Af > 60 Glucose 110 Calcium 9.0 Stool Occult Blood POSITIVE Chest X-Ray 10/02/19 15:53 IMPRESSION: Cardiomegaly without pulmonary edema. Small right pleural effusion. Lung Scan-VQ NM 10/03/19 00:00 IMPRESSION: Several small areas of decreased perfusion are seen peripherally in each lung. Intermediate probability of pulmonary embolus. Soft Tissue Neck CT 10/04/19 08:40 IMPRESSION: Prior left radical neck dissection. No obvious recurrence. Chest X-Ray 10/05/19 00:00 IMPRESSION: Cardiomegaly. Pleural effusions. Question CHF. Clinical correlation is needed. Head CT 10/05/19 00:00 IMPRESSION: No definite acute intracranial abnormality TECHNICAL DOCUMENTATION: Quality ID # 436: Final reports with documentation of one or more dose reduction techniques (e.g., Automated exposure control, adjustment of the mA and/or kV according to patient size, use of iterative reconstruction technique) IMPRESSION/RECOMMENDATION: 1.Elevated troponin I. This is trending down. This is secondary to supply demand mismatch. No evidence of non-ST elevation SC. 2. Acute on chronic renal insufficiency most likely secondary to overdiuresis. Patient appears to be dry clinically. Will gently rehydrate the patient and hold the patient's Lasix. There is no evidence of congestive heart failure clinically or by chest x-ray. The patient's renal function seems to be improving, and the patient's GFR is normal. 3. Chronic atrial fibrillation: Rapid ventricular response secondary to noncompliance with medication. At present heart rate is well controlled. Continue Eliquis and metoprolol.. 4. Indeterminate ventilation/perfusion scan for pulmonary embolism. This is a moot point since the patient is going to be on chronic anticoagulation for his atrial fibrillation. 5. Moderate mitral regurgitation. Once the patient blood pressure comes up we will start the patient on an afterload reducing agent, with the hope that the kidney function will improve with hydration. 6. Hypertension: Blood pressure remains stable. Will observe. Continue patient on metoprolol. 7. Occult blood is positive. But the patient's hemoglobin stable. Will watch the patient hemoglobin in the meantime we will continue the patient on Eliquis. Medications reviewed. Medication regimen and management plan discussed with attending provider. Cardiac status is stable. Patient is being discharged home today. He will follow-up with my office he has an appointment on October 27 at 11:15 AM in the office. The patient would recommended to have a IV Lexiscan Cardiolite stress test as an outpatient. We will arrange for this. Medical decision making is of moderate complexity. Will sign off and follow the patient in the office.
[2019-10-11] MEDS: ATENOLOL 50 MG TABLET PO SCH ×2 (09:51→21:31)
[2019-10-11] MEDS: ASPIRIN 325 MG TABLET PO SCH (09:51)
[2019-10-11] MEDS: TAMSULOSIN HCL 0.4 MG CAP.SR.24H PO SCH (09:52)
[2019-10-11] MEDS: FUROSEMIDE 20 MG TABLET PO SCH (09:52)
[2019-10-11] MEDS: APIXABAN 2.5 MG TABLET PO SCH ×2 (09:52→17:05)
[2019-10-12 09:28] VITALS: BP 122/80
[2019-10-12] MEDS: FUROSEMIDE 20 MG TABLET PO SCH (09:29)
[2019-10-12] MEDS: ASPIRIN 325 MG TABLET PO SCH (09:29)
[2019-10-12] MEDS: APIXABAN 2.5 MG TABLET PO SCH (09:29)
[2019-10-12] MEDS: TAMSULOSIN HCL 0.4 MG CAP.SR.24H PO SCH (09:30)
[2019-10-12] MEDS: ATENOLOL 50 MG TABLET PO SCH (09:30)
== END 2019-10-12 15:46 | disposition home or self-care (01) | DRG 281 ==
LOC: ER 15:51 → EH 18:14 → INTOOBSV 18:14 → 3W 22:28 → OBSVTOIN 10-03 14:09
PROVIDERS: ADMIT Internal Medicine; ATTEND Internal Medicine
DX: I48.20 Chronic atrial fibrillation, unspecified (principal); I21.4 Non-ST elevation (NSTEMI) myocardial infarction; N17.9 Acute kidney failure, unspecified; R44.3 Hallucinations, unspecified; I10 Essential (primary) hypertension; I48.92 Unspecified atrial flutter; H53.9 Unspecified visual disturbance; I34.0 Nonrheumatic mitral (valve) insufficiency; T44.7X6A Underdosing of beta-adrenoreceptor antagonists, initial encounter; T45.516A Underdosing of anticoagulants, initial encounter; R19.5 Other fecal abnormalities; Z79.01 Long term (current) use of anticoagulants; Z85.21 Personal history of malignant neoplasm of larynx
CPT/HCPCS: 36415; 70450; 70490; 71045; 78582; 80048; 80053; 81001; 82272; 82550; 82553; 82962; 83605; 83880; 84443; 84484; 85025; 85027; 85610; 85730; 87040; 92950; 93005; 93010; 93306; 94660; 96374; 96375; 96376; 99291; A9540; A9567; G0378; J1160; J1644; J1940; J3490; J7030; J7040; Q9969

== ENCOUNTER 2019-10-24 06:24 | Inpatient (IN) | payer OTHER, MEDICARE ==
[2019-10-24] MEDS ORDERED: NORMAL SALINE 1000 ML 1,000 ML IV ONE ×3 (07:02→23:59)
[2019-10-24] MEDS ORDERED: PIPERACILLIN/TAZOBACTAM 3.375 GM VIAL IV ONE (07:03)
[2019-10-24 07:09] LABS: HEMATOCRIT 38.7 % (37.9-51.0); HEMOGLOBIN 11.7 g/dL (13.5-17.0); MEAN CORPUSCULAR HEMOGLOBIN 22.7 pg (27.0-33.4); MEAN CORPUSCULAR HGB CONC 30.2 g/dL (32.0-36.0); MEAN CORPUSCULAR VOLUME 75 fl (80-97); PLATELET COUNT 259 10^3/uL (150-450); RED BLOOD COUNT 5.13 10^6/uL (4.35-5.55); RED CELL DISTRIBUTION WIDTH 24.3 % (11.5-14.0); WHITE BLOOD COUNT 18.3 10^3/uL (4.0-10.5)
--- NOTE | 2019-10-24 07:14 | ER Document Report ---
ED General - General Chief Complaint: Wound Infection Stated Complaint: LEG PAIN AND SWELLING Time Seen by Provider: 10/24/19 06:48 Primary Care Provider: TRACY,MARA [Primary Care Provider] - Follow up as needed Mode of Arrival: Medic Information source: Patient Notes: Patient comes in by EMS complaining of pain in his left ankle and foot from a chronic wound. He has multiple medical problems including atrial fibrillation and PE, for which he is on blood thinner. History is limited by patient's age and condition. He is short of breath and was started on oxygen by EMS. He says his left foot and ankle are tender but denies any trauma. No chest pain. He tells me he lives alone. He is complaining of a dry mouth is requesting something to drink. No other complaints. Per family, pt on lasix and Eliquis for pulmonary embolism and AFib. TRAVEL OUTSIDE OF THE [place] IN LAST 30 DAYS: No - Related Data Allergies/Adverse Reactions: No Known Allergies Allergy (Verified 10/24/19 06:50) Home Medications: completed Past Medical History - Social History Smoking Status: Never Smoker Frequency of alcohol use: None Drug Abuse: None Family History: Reviewed & Not Pertinent Patient has suicidal ideation: No Patient has homicidal ideation: No - Past Medical History Cardiac Medical History: Reports: Hx Atrial Fibrillation, Hx Heart Attack, Hx Hypertension Pulmonary Medical History: Denies: Hx Asthma Neurological Medical History: Denies: Hx Cerebrovascular Accident, Hx Seizures Renal/ Medical History: Denies: Hx Peritoneal Dialysis GI Medical History: Denies: Hx Hepatitis, Hx Hiatal Hernia, Hx Ulcer Infectious Medical History: Denies: Hx Hepatitis Past Surgical History: Denies: Hx Open Heart Surgery, Hx Pacemaker Review of Systems - Review of Systems -: Yes ROS unobtainable due to patient's medical condition Physical Exam - Vital signs Vitals: Temp Pulse Resp BP Pulse Ox 97.7 F 113 H 22 H 103/92 H 97 10/24/19 06:27 10/24/19 06:27 10/24/19 06:27 10/24/19 06:27 10/24/19 06:27 Interpretation: Tachycardic, Tachypneic - General General appearance: Other - DISHEVELED AND UNCOMFORTABLE - HEENT Head: Normocephalic, Atraumatic Extraocular movements intact: Yes Mouth/Lips: Other - POOR DENTITION Mucous membranes: Dry - Respiratory Respiratory status: Tachypnea Breath sounds: Rales, Rhonchi, Wheezing - Cardiovascular Rhythm: Irregularly irregular, Tachycardia Murmur: No - Abdominal Inspection: Normal Tenderness: Nontender - Back Back: Normal - Extremities General upper extremity: Normal ROM General lower extremity: Normal ROM Notes: SWELLING 3+ BILATERAL LOWER EXTREMITIES. LEFT ANKLE BLANCHABLE ERYTHEMA CIRCUMFERENTIAL C/W CELLULITIS WITH ANTERIOR ULCERATION. N/V INTACT DISTALLY - Neurological Neuro grossly intact: Yes Notes: AWAKE, ALERT, FOLLOWS COMMANDS, NO FOCAL DEFICITS. MOVES ALL 4 EXTREMITIES. - Psychological Associated symptoms: Anxious - Skin Notes: CELLULITIS LEFT LEG ABOVE Course - Re-evaluation Re-evalutation: 10/24/19 07:17 EKG per my interpretation shows atrial fibrillation at a rate of 132 which is unchanged from previous EKG from 21 days ago. Patient appears septic with possible source left ankle cellulitis. I have instituted sepsis protocol including IV fluid antibiotics and cultures. Patient is currently stable on the monitor. 10/24/19 09:44 Labs reviewed. Troponin elevated at 0.41. Patient is already on blood thinner Eliquis. Elevated creatinine of 1.7. X-rays of the left lower extremity per radiology show no evidence of osteomyelitis but do show soft tissue swelling. Chest x-ray per radiologist shows an infiltrate at the right base which could be consistent with pneumonia, which is already covered with antibiotics. Patient is currently stable. On review of previous lab work, patient's troponins have also been elevated earlier this month with troponin of 0.151 and troponin of 0.866. 10/24/19 10:07 Discussed the case in detail with Dr. Branham who agrees with admission to [facility], who requests attending Dr. Bueno as admitting physician. Pt stable. To [facility]. 10/24/19 10:11 - Vital Signs Vital signs: Temp Pulse Resp BP Pulse Ox 97.1 F 113 H 25 H 82/59 L 89 L 10/24/19 09:56 10/24/19 06:27 10/24/19 09:35 10/24/19 09:35 10/24/19 09:35 - Laboratory Result Diagrams: 10/24/19 06:41 10/24/19 06:41 Laboratory results interpreted by me: 10/24/19 10/24/19 10/24/19 06:41 06:41 06:41 WBC 18.3 H Hgb 11.7 L MCV 75 L MCH 22.7 L MCHC 30.2 L RDW 24.3 H Seg Neuts % (Manual) 96 H Lymphocytes % (Manual) 2 L Monocytes % (Manual) 2 L Abs Neuts (Manual) 17.6 H Abs Lymphs (Manual) 0.4 L PT 21.9 H Sodium 134.4 L Potassium 5.5 H Chloride 92 L BUN 50 H Creatinine 1.66 H Est GFR ( Amer) 48 L Est GFR (MDRD) Non-Af 39 L Glucose 156 H Lactic Acid Total Bilirubin 4.2 H Direct Bilirubin 2.8 H Alkaline Phosphatase 173 H 10/24/19 06:41 WBC Hgb MCV MCH MCHC RDW Seg Neuts % (Manual) Lymphocytes % (Manual) Monocytes % (Manual) Abs Neuts (Manual) Abs Lymphs (Manual) PT Sodium Potassium Chloride BUN Creatinine Est GFR ( Amer) Est GFR (MDRD) Non-Af Glucose Lactic Acid 7.3 H Total Bilirubin Direct Bilirubin Alkaline Phosphatase Critical Care Note - Critical Care Note Total time excluding time spent on procedures (mins): 40 Discharge - Discharge Clinical Impression: Cellulitis of left ankle, possible RLL pneumonia Sepsis Qualifiers: Sepsis type: sepsis due to unspecified organism Sepsis acute organ dysfunction status: unspecified Qualified Code(s): A41.9 - Sepsis, unspecified organism Leukocytosis Qualifiers: Leukocytosis type: unspecified Qualified Code(s): D72.829 - Elevated white blood cell count, unspecified Hypotension Qualifiers: Hypotension type: unspecified hypotension type Qualified Code(s): I95.9 - Hypotension, unspecified Condition: Serious Disposition: ADMITTED INPATIENT Admitting Provider: Ximena (Hospitalist) Unit Admitted: [facility] [Primary Care [facility]] - Follow up as needed ED Sepsis - Sepsis Documentation Sepsis Patient: Yes - Vital Signs Interpretation: Hypertensive, Tachypneic
[2019-10-24 07:15] LABS: INTERNATIONAL RATION (INR) 1.88; PROTHROMBIN TIME 21.9 SEC (11.4-15.4)
[2019-10-24 07:27] LABS: ALBUMIN 3.6 g/dL (3.5-5.0); ALKALINE PHOSPHATASE 173 U/L (38-126); ANION GAP 19 (5-19); ASPARTATE AMINO TRANSFERASE 50 U/L (17-59); BILIRUBIN,DIRECT 2.8 mg/dL (0.0-0.4); BILIRUBIN,TOTAL 4.2 mg/dL (0.2-1.3); BLOOD UREA NITROGEN 50 mg/dL (7-20); CALCIUM 9.2 mg/dL (8.4-10.2); CARBON DIOXIDE 23 mmol/L (22-30); CHLORIDE 92 mmol/L (98-107); GLUCOSE 156 mg/dL (75-110); POTASSIUM 5.5 mmol/L (3.6-5.0); TOTAL PROTEIN 7.4 g/dL (6.3-8.2)
--- NOTE | 2019-10-24 07:45 | RADIOLOGY REPORT (SQ) ---
EXAM: X-ray ankle three or more views CLINICAL DATA: 84-year-old male with ankle pain and swelling, rule out osteomyelitis. TECHNICAL DATA: Three x-ray views of the left ankle were performed on 10/24/2019 at 7:20 AM. COMPARISONS: None FINDINGS: There is no evidence of fracture or dislocation. There is mild hypertrophic spurring of the bones in the midfoot and hindfoot. There is a prominent plantar calcaneal spur and prominent posterior calcaneal enthesophyte.. No focal lytic or sclerotic bone lesions are seen. No focal lytic lesions or cortical erosions are identified. Bone mineralization is normal. There is diffuse soft tissue swelling surrounding the left ankle. IMPRESSION: 1. Degenerative changes of the left ankle and midfoot. 2. Diffuse soft tissue swelling surrounding the left ankle. 3. No definite radiographic findings to suggest osteomyelitis.
[2019-10-24 07:47] LABS: ABSOLUTE LYMPHOCYTES# (MANUAL) 0.4 10^3/uL (0.5-4.7); ABSOLUTE MONOCYTES # (MANUAL) 0.4 10^3/uL (0.1-1.4); BASOPHILS % (MANUAL) 0 % (0-2); EOSINOPHILS % (MANUAL) 0 % (0-6); LYMPHOCYTES % (MANUAL) 2 % (13-45); MONOCYTES % (MANUAL) 2 % (3-13); SEGMENTED NEUTROPHILS % (MAN) 96 % (42-78); TOTAL CELLS COUNTED 100
[2019-10-24 07:48] LABS: ANISOCYTOSIS 3+; PLATELET COMMENT ADEQUATE
[2019-10-24 07:49] LABS: TARGET CELLS SLIGHT
--- NOTE | 2019-10-24 07:50 | RADIOLOGY REPORT (SQ) ---
EXAM: X-ray foot three or more views CLINICAL DATA: 84-year-old male with left foot pain and swelling, rule out osteomyelitis TECHNICAL DATA: Three x-ray views of the left foot were performed on 10/24/2019 at 7:23 AM. COMPARISONS: None FINDINGS: There is no evidence of acute fracture or dislocation. There are degenerative changes of the midfoot and hindfoot with scattered hypertrophic spurring. No pathologic lytic or sclerotic bone lesions are identified. There are no focal areas of cortical erosion. There is a prominent plantar calcaneal spur and posterior calcaneal enthesophyte. Bone mineralization is normal. There is diffuse soft tissue swelling surrounding the left foot. There are questionable 1 cm soft tissue masses along the dorsal aspect of the left foot IMPRESSION: 1. No definite acute osseous abnormality or definite findings to suggest acute osteomyelitis. 2. Degenerative changes of the midfoot and hindfoot. 3. Diffuse soft tissue swelling surrounding the left foot. There are questionable 1 cm soft tissue masses along the dorsal aspect of the left foot best appreciated on the lateral projection.
[2019-10-24 08:11] LABS: VENOUS BLOOD BASE EXCESS -1.2 mmol/L; VENOUS BLOOD HCO3 24.6 mmol/L (20-32); VENOUS BLOOD PCO2 45.5 mmHg (35-63); VENOUS BLOOD PH 7.35 (7.30-7.42)
--- NOTE | 2019-10-24 08:24 | RADIOLOGY REPORT (SQ) ---
EXAM DESCRIPTION: CHEST SINGLE VIEW COMPLETED DATE/TIME: 10/24/2019 7:27 am REASON FOR STUDY: SOB; afib COMPARISON: AP view of the chest from 10/05/2019. EXAM PARAMETERS: NUMBER OF VIEWS: One view. TECHNIQUE: An AP view of the chest was obtained. RADIATION DOSE: NA LIMITATIONS: None. FINDINGS: LUNGS AND PLEURA: Dense opacity in the right base that obscures the contour of the right h emidiaphragm and blunts the right lateral costophrenic sulcus. There is no pneumothorax. MEDIASTINUM AND HILAR STRUCTURES: No mediastinal or hilar contour abnormality. HEART AND VASCULAR STRUCTURES: Stable mild cardiomegaly. BONES: No acute findings. HARDWARE: None in the chest. OTHER: No other finding. IMPRESSION: New dense opacity in the right base that obscures the contour of the right hemidiaphragm and blunts the right latter costophrenic sulcus. The opacity could represent a combination of pleur al fluid, atelectasis and in the proper clinical setting pneumonia. TECHNICAL DOCUMENTATION: JOB ID: [id number] [employer]- All Rights Reserved Reading location - IP/workstation name: [employer] [place]
[2019-10-24] MEDS ORDERED: NORMAL SALINE 1000 ML 1,000 ML IV PRN (11:19)
[2019-10-24] MEDS ORDERED: ACETAMINOPHEN 325 MG TABLET PO PRN (11:19)
[2019-10-24] MEDS: PANTOPRAZOLE SODIUM 20 MG TABLET.DR PO SCH (11:53)
[2019-10-24] MEDS ORDERED: HYDROMORPHONE HCL INJ/PF 2 MG/ML AMPULE IV PRN (12:00)
[2019-10-24] MEDS ORDERED: FUROSEMIDE INJ/PF 20 MG/2 ML SDV IV SCH (12:00)
[2019-10-24 12:30] LABS: APPEARANCE,URINE SLIGHTLY-CLOUDY; BILIRUBIN,URINE SMALL (NEGATIVE); COLOR,URINE AMBER; GLUCOSE, URINE NEGATIVE (NEGATIVE); KETONES,URINE NEGATIVE (NEGATIVE); PROTEIN,URINE 30 mg/dL (NEGATIVE); URINE SPECIFIC GRAVITY 1.018
--- NOTE | 2019-10-24 13:29 | PDOC H&P ---
History of Present Illness Admission Date/PCP: 10/24/19 10:27 [facility] History of Present Illness: JUANY OLIVERA is a 84 year old male seen in the emergency room for possible sepsis. According to the patient who is a poor historian he says yesterday his left leg started hurting. Patient called EMS and was brought to the emergency room with what appears to be cellulitis left lower extremity. Patient states he did not have any problems with this before yesterday. Patient tells me that he lives with his but in reading the ER physicians report he is told that provider that he lives alone. Patient seems to have an element of dementia. Patient states that his left leg is hurting and he needs pain medication however due to his hypotension it is difficult to justify giving him narcotics Patient's white count is elevated at 18,300, Past Medical History Cardiac Medical History: Reports: Atrial Fibrillation, Myocardial Infarction, Hypertension Pulmonary Medical History: Denies: Asthma Neurological Medical History: Denies: Seizures GI Medical History: Denies: Hepatitis, Hiatal Hernia Hematology: Denies: Anemia, Sickle Cell Disease Past Surgical History Past Surgical History: Denies: Pacemaker Social History Smoking Status: Never Smoker Frequency of Alcohol Use: None Hx Recreational Drug Use: No Hx Prescription Drug Abuse: No Family History Family History: Reviewed & Not Pertinent Parental Family History Reviewed: No Children Family History Reviewed: No Sibling(s) Family History Reviewed.: No Medication/Allergy Home Medications: Apixaban [Eliquis 2.5 mg Tablet] 2.5 mg PO BID 10/24/19 Atenolol [Tenormin] 25 mg PO BID 10/24/19 Furosemide [Lasix 20 mg Tablet] 20 mg PO QAM 10/24/19 Tamsulosin HCl [Flomax 0.4 mg Cap.sr] 0.4 mg PO DAILY 10/24/19 Allergies/Adverse Reactions: No Known Allergies Allergy (Verified 10/24/19 06:50) Physical Exam Vital Signs: Temp Pulse Resp BP Pulse Ox 97.1 F 113 H 16 76/52 L 79 L 10/24/19 09:56 10/24/19 06:27 10/24/19 10:57 10/24/19 10:57 10/24/19 10:01 Intake & Output 10/23/19 10/24/19 10/25/19 06:59 06:59 06:59 Intake Total 1999 Balance 1999 Weight 103.3 kg Results Laboratory Results: 10/24/19 06:41 10/24/19 06:41 10/24/19 10/24/19 10/24/19 06:41 06:41 06:41 WBC 18.3 H RBC 5.13 Hgb 11.7 L Hct 38.7 MCV 75 L MCH 22.7 L MCHC 30.2 L RDW 24.3 H Plt Count 259 Seg Neutrophils % Not Reportable VBG pH VBG pCO2 VBG HCO3 VBG Base Excess Sodium 134.4 L Potassium 5.5 H Chloride 92 L Carbon Dioxide 23 Anion Gap 19 BUN 50 H Creatinine 1.66 H Est GFR ( Amer) 48 L Glucose 156 H Lactic Acid 7.3 H Calcium 9.2 Magnesium 2.2 Total Bilirubin 4.2 H AST 50 Alkaline Phosphatase 173 H Total Protein 7.4 Albumin 3.6 Urine Color Urine Appearance Urine pH Ur Specific Rhame Urine Protein Urine Glucose (UA) Urine Ketones Urine Blood Urine RBC (Auto) 10/24/19 10/24/19 10/24/19 07:50 07:58 10:51 WBC RBC Hgb Hct MCV MCH MCHC RDW Plt Count Seg Neutrophils % VBG pH 7.35 VBG pCO2 45.5 VBG HCO3 24.6 VBG Base Excess -1.2 Sodium Potassium Chloride Carbon Dioxide Anion Gap BUN Creatinine Est GFR ( Amer) Glucose Lactic Acid 5.4 H Calcium Magnesium Total Bilirubin AST Alkaline Phosphatase Total Protein Albumin Urine Color DARBY Urine Appearance SLIGHTLY-CLOUDY Urine pH 5.0 Ur Specific Rhame 1.018 Urine Protein 30 H Urine Glucose (UA) NEGATIVE Urine Ketones NEGATIVE Urine Blood NEGATIVE Urine RBC (Auto) 33 10/24/19 12:06 WBC RBC Hgb Hct MCV MCH MCHC RDW Plt Count Seg Neutrophils % VBG pH VBG pCO2 VBG HCO3 VBG Base Excess Sodium Potassium Chloride Carbon Dioxide Anion Gap BUN Creatinine Est GFR ( Amer) Glucose Lactic Acid 5.2 H Calcium Magnesium Total Bilirubin AST Alkaline Phosphatase Total Protein Albumin Urine Color Urine Appearance Urine pH Ur Specific Rhame Urine Protein Urine Glucose (UA) Urine Ketones Urine Blood Urine RBC (Auto) 10/24/19 06:41 Troponin I 0.406 Impressions: Chest X-Ray 10/24/19 06:50 IMPRESSION: New dense opacity in the right base that obscures the contour of the right hemidiaphragm and blunts the right latter costophrenic sulcus. The opacity could represent a combination of pleural fluid, atelectasis and in the p penny clinical setting pneumonia. Ankle X-Ray 10/24/19 07:04 IMPRESSION: 1. Degenerative changes of the left ankle and midfoot. 2. Diffuse soft tissue swelling surrounding the left ankle. 3. No definite radiographic findings to suggest osteomyelitis. Foot X-Ray 10/24/19 07:05 IMPRESSION: 1. No definite acute osseous abnormality or definite findings to suggest acute osteomyelitis. 2. Degenerative changes of the midfoot and hindfoot. 3. Diffuse soft tissue swelling surrounding the left foot. There are questionable 1 cm soft tissue masses along the dorsal aspect of the left foot best appreciated on the lateral projection.
[2019-10-24] MEDS ORDERED: VANCOMYCIN HCL 0 MG in DEXTROSE 5%-WATER 250 ML IV NR ×2 (13:45→16:00)
[2019-10-24] MEDS ORDERED: NOREPINEPHRINE BITARTRATE INJ/PF 4 MG/4 ML SDV IV ONE (14:54)
[2019-10-24] MEDS ORDERED: VANCOMYCIN HCL 1,500 MG in DEXTROSE 5%-WATER 250 ML IV SCH (15:00)
[2019-10-24] MEDS ORDERED: PIPERACILLIN SODIUM/TAZOBACTAM 4.5 GM in NORMAL SALINE 100 ML IV SCH (15:00)
[2019-10-24] MEDS: DEXTROSE 5%-WATER 250 ML with NOREPINEPHRINE BITARTRATE 4 MG IV PRN ×4 (15:15→21:57)
--- NOTE | 2019-10-24 15:15 | RADIOLOGY REPORT (SQ) ---
EXAM DESCRIPTION: CT LT LOWER EXTREMITY WITHOUT COMPLETED DATE/TIME: 10/24/2019 2:47 pm REASON FOR STUDY: left leg pain, WITHOUT CONTRAST COMPARISON: None. EXAM PARAMETERS: TECHNIQUE:Axial imaging performed through the left leg with reformatted coronal an d sagittal imaging windowed for bone and soft tissues. Images saved to PACS. 3D IMAGING: Were 3D images as MIP, SSD, or volume rendering performed at the work station? No All CT scanners at this facility use dose modulation, iterative reconstruction, and/or weight based d osing when appropriate to reduce radiation dose to as low as reasonably achievable (ALARA). [facility]: Dose Right [facility]: SureCare [facility]: Dose Right [facility]: Teradose 4D [facility]: Smart Pixlee RADIATION DOSE: CT Rad equipment meets quality standard of care and radiation dose reduction techniqu es were employed. CTDIvol: 4.1 mGy. DLP: 260 mGy-cm. mGy. LIMITATIONS: None. FINDINGS: SOFT TISSUES: Subcutaneous edema is present in the left lower leg. BONES: No acute fracture. No dislocation. MINERALIZATION: Normal. OTHER: No other significant finding. IMPRESSION: There is subcutaneous edema in the left leg. Correlate for cellulitis. No other signif icant finding. TECHNICAL DOCUMENTATION: JOB ID: [id number] [facility] [id number]: Final reports with documentation of one or more dose reduction techniques (e.g., Automate d exposure control, adjustment of the mA and/or kV according to patient size, use of iterative recons truction technique) 2010 [employer]- All Rights Reserved TECHNIQUE CT scan of the left leg performed without intravenous or oral contrast. Images reviewed w ith soft tissue and bone windows. Reconstructed coronal and sagittal MPR images reviewed. All image s stored on PACS. Reading location - IP/workstation name: [email or web address]
--- NOTE | 2019-10-24 16:01 | Operative Report ---
Bedside Procedure - History of Present Illness Indication for Procedure: Hypotension, septic shock Provider: JUSTINE [facility] - Central Line Right Internal jugular Time completed: 16:00 Consent obtained: No - Emergent procedure Central line pre-insertion: Sterile PPE donned, Chloraprep applied, Sterile drapes applied Central line lumen type: Triple Anesthetic type: 1% Lidocaine Ultrasound guided: Yes Line secured with sutures: Yes Central line post-insertion: Blood return from lumens, Biopatch applied, Sutured, Sterile dressing applied, Position confirmed w/ CXR Number of attempts: 1 Complications: No
--- NOTE | 2019-10-24 16:29 | CRITICAL CARE ADMISSION REPORT ---
HPI Date:: 10/24/19 - Critical Care Attending Note Time:: 16:12 Reason for ICU Reason:: septic shock, HCAP, cellulitis HPI: Ptis a 84 yo man who was recently hospitalized. Pt is a poor historian. He has a h/o afib, HTN. He presented to the ED c/o increasing shortness of breath as well as worsning LE edema and pain in his left leg. In the ED, he was found to be hypotensive with an SBP in the 80s. He was given IVF. He was also started on IV ATBX for cellulitis. Pt was initially scheduled to be admitted to the IMCU, but was admitted to the ICU for his septic shock. Upon arrival he was hypotensive with an SBP in the 60s. He is awake and alert. I inserted a central line and started him on levophed. - Diagnosis/Plan (1) Septic shock Is this a current diagnosis for this admission?: Yes (2) Cellulitis Is this a current diagnosis for this admission?: Yes (3) HCAP (healthcare-associated pneumonia) Is this a current diagnosis for this admission?: Yes (4) BEVERLY (acute kidney injury) Is this a current diagnosis for this admission?: Yes (5) Leg edema Is this a current diagnosis for this admission?: Yes (6) Afib Qualifiers: Atrial fibrillation type: unspecified Qualified Code(s): I48.91 - Unspecified atrial fibrillation Is this a current diagnosis for this admission?: Yes (7) Vascular insufficiency Is this a current diagnosis for this admission?: Yes Past Medical History Cardiac Medical History: Reports: Atrial Fibrillation, Myocardial Infarction, Hypertension Pulmonary Medical History: Denies: Asthma Neurological Medical History: Denies: Seizures GI Medical History: Denies: Hepatitis, Hiatal Hernia Hematology: Denies: Anemia, Sickle Cell Disease Past Surgical History Past Surgical History: Denies: Pacemaker Social/Family History - Social History Smoking Status: Never Smoker Frequency of Alcohol Use: None Hx Recreational Drug Use: No Hx Prescription Drug Abuse: No - Medication/Allergies Home Medications: Apixaban [Eliquis 2.5 mg Tablet] 2.5 mg PO BID 10/24/19 Atenolol [Tenormin] 25 mg PO BID 10/24/19 Furosemide [Lasix 20 mg Tablet] 20 mg PO QAM 10/24/19 Tamsulosin HCl [Flomax 0.4 mg Cap.sr] 0.4 mg PO DAILY 10/24/19 Allergies/Adverse Reactions: No Known Allergies Allergy (Verified 10/24/19 06:50) Review of Systems Review of Systems: Per HPI Physical Exam Vital Signs: Temp Pulse Resp BP Pulse Ox 97.1 F 67 18 69/49 L 100 10/24/19 09:56 10/24/19 15:27 10/24/19 15:27 10/24/19 15:27 10/24/19 15:27 Intake & Output 10/23/19 10/24/19 10/25/19 06:59 06:59 06:59 Intake Total 2949 Balance 2949 Weight 103.3 kg 104.4 kg Weight/Height Weight 104.4 kg Height 6 ft General appearance: PRESENT: no acute distress, well-developed, well-nourished, other - awake,alert Head exam: PRESENT: normocephalic Respiratory exam: PRESENT: rhonchi, unlabored Cardiovascular exam: PRESENT: irregular rhythm GI/Abdominal exam: PRESENT: soft Extremities exam: PRESENT: other - 3+ edema bilateral LE, redness bilaterally, left tibia with puruluent wounds. Neurological exam: PRESENT: alert, awake Psychiatric exam: PRESENT: appropriate affect Laboratory/Radiographs Laboratory Results: 10/24/19 06:41 10/24/19 06:41 10/24/19 10/24/19 10/24/19 06:41 06:41 06:41 WBC 18.3 H RBC 5.13 Hgb 11.7 L Hct 38.7 MCV 75 L MCH 22.7 L MCHC 30.2 L RDW 24.3 H Plt Count 259 Seg Neutrophils % Not Reportable VBG pH VBG pCO2 VBG HCO3 VBG Base Excess Sodium 134.4 L Potassium 5.5 H Chloride 92 L Carbon Dioxide 23 Anion Gap 19 BUN 50 H Creatinine 1.66 H Est GFR ( Amer) 48 L Glucose 156 H Lactic Acid 7.3 H Calcium 9.2 Magnesium 2.2 Total Bilirubin 4.2 H AST 50 Alkaline Phosphatase 173 H Total Protein 7.4 Albumin 3.6 Urine Color Urine Appearance Urine pH Ur Specific [place] Urine Protein Urine Glucose (UA) Urine Ketones Urine Blood Urine RBC (Auto) 10/24/19 10/24/19 10/24/19 07:50 07:58 10:51 WBC RBC Hgb Hct MCV MCH MCHC RDW Plt Count Seg Neutrophils % VBG pH 7.35 VBG pCO2 45.5 VBG HCO3 24.6 VBG Base Excess -1.2 Sodium Potassium Chloride Carbon Dioxide Anion Gap BUN Creatinine Est GFR ( Amer) Glucose Lactic Acid 5.4 H Calcium Magnesium Total Bilirubin AST Alkaline Phosphatase Total Protein Albumin Urine Color DARBY Urine Appearance SLIGHTLY-CLOUDY Urine pH 5.0 Ur Specific [place] 1.018 Urine Protein 30 H Urine Glucose (UA) NEGATIVE Urine Ketones NEGATIVE Urine Blood NEGATIVE Urine RBC (Auto) 33 10/24/19 10/24/19 12:06 13:00 WBC RBC Hgb Hct MCV MCH MCHC RDW Plt Count Seg Neutrophils % VBG pH VBG pCO2 VBG HCO3 VBG Base Excess Sodium Potassium Chloride Carbon Dioxide Anion Gap BUN Creatinine Est GFR ( Amer) Glucose Lactic Acid 5.2 H 4.7 H Calcium Magnesium Total Bilirubin AST Alkaline Phosphatase Total Protein Albumin Urine Color Urine Appearance Urine pH Ur Specific [place] Urine Protein Urine Glucose (UA) Urine Ketones Urine Blood Urine RBC (Auto) 10/24/19 06:41 Troponin I 0.406 Impressions: Lower Extremity CT 10/24/19 00:00 IMPRESSION: There is subcutaneous edema in the left leg. Correlate for cellulitis. No other significant finding. Chest X-Ray 10/24/19 06:50 IMPRESSION: New dense opacity in the right base that obscures the contour of the right hemidiaphragm and blunts the right latter costophrenic sulcus. The opacity could represent a combination of pleural fluid, atelectasis and in the proper clinical setting pneumonia. Ankle X-Ray 10/24/19 07:04 IMPRESSION: 1. Degenerative changes of the left ankle and midfoot. 2. Diffuse soft tissue swelling surrounding the left ankle. 3. No definite radiographic findings to suggest osteomyelitis. Foot X-Ray 10/24/19 07:05 IMPRESSION: 1. No definite acute osseous abnormality or definite findings to suggest acute osteomyelitis. 2. Degenerative changes of the midfoot and hindfoot. 3. Diffuse soft tissue swelling surrounding the left foot. There are questionable 1 cm soft tissue masses along the dorsal aspect of the left foot best appreciated on the lateral projection. EKG: pending Critical Time Critical Time (minutes): 60 -: The care of a critically ill patient is dynamic. This note represents a static moment in the admission process. Orders and treatments may be given simultaneously and urgently, and time is not credit and collections representative of the treatment process. This patient requires Critical Care secondary to life threatening organ or limb dysfunction. Without Critical Care services, the patient is at risk for increased mortality and morbidity. Provider Note Provider Note: Assessment: Critically ill 84 yo man with septic shock, HCAP, cellulitis of lower extremities, afib, BEVERLY, vascular insufficiency. Plan: 1. Respiratory: stable on nasal cannula 2. Pulmonary: HCAP. Vanc and zosyn 3. CV: hypotension due to septic shock. Right IJ TLC placed. Pt started on levophed. Will hydrate with IVF. Pt has severe LE edema, therefore will hydrate with care and will use albumin. Echo done recently shows EF of 60% Afib, rate controlled. On eliquis 4. Renal: BEVERLY. IVF. Renally dose meds 5. Vascular: severe LE edema. Doubt compartment syndrome as both legs are very edematous,although leg leg moreso than right. Will order arterial and venous dopplers 6. ID: septic shock, HCAP, LE cellultis. Vanc and zosyn. Cultures ordered 7. Heme: on eliquis for afib 8. Endocrine: monitor blood sugars 9. Nutrition: NPO for now 10. Prophylaxis: DVT prophylaxis not needed b/c pt is on eliquis. Critical care time= 60 min, excluding procedures
--- NOTE | 2019-10-24 16:35 | RADIOLOGY REPORT (SQ) ---
EXAM DESCRIPTION: CHEST SINGLE VIEW COMPLETED DATE/TIME: 10/24/2019 4:14 pm REASON FOR STUDY: TLC RIJ insertion COMPARISON: AP view of the chest from 10/24/2019. EXAM PARAMETERS: NUMBER OF VIEWS: One view. TECHNIQUE: An AP view of the chest was obtained. RADIATION DOSE: NA LIMITATIONS: None. FINDINGS: LUNGS AND PLEURA: Unchanged pleural and parenchymal opacities in the right base. MEDIASTINUM AND HILAR STRUCTURES: Stable mediastinal and hilar contours. HEART AND VASCULAR STRUCTURES: Unchanged cardiomegaly. BONES: No acute findings. HARDWARE: The tip of the right IJ central venous catheter projects within the right atrium. There leon rgical clips that project within the left supraclavicular region. OTHER: No other finding. IMPRESSION: The tip of the right IJ central venous catheter projects within the right atrium. TECHNICAL DOCUMENTATION: JOB ID: [id number] [employer]- All Rights Reserved Reading location - IP/workstation name: [email or web address]
[2019-10-24] MEDS ORDERED: NORMAL SALINE INJ/PF 0.9% 10 ML SDV IV PRN (16:49)
[2019-10-24] MEDS: ALBUMIN HUMAN 12.5 GM/50 ML RTUINJ IV SCH ×4 (16:56→20:14)
[2019-10-24] MEDS ORDERED: (PENDING PHARMACY ID) (Atenolol [Tenormin] 25 MG) PO SCH (18:00)
[2019-10-24] MEDS: PIPERACILLIN SODIUM/TAZOBACTAM 3.375 GM in NORMAL SALINE 100 ML IV SCH ×2 (18:25→23:53)
[2019-10-24] MEDS: RINGERS SOLUTION,LACTATED 1,000 ML IV PRN (18:26)
--- NOTE | 2019-10-24 18:27 | Progress Note ---
Provider Note Provider Note: Attempted to insert left radial line. Was unable to cannulate the artery so I aborted the procedure. Pt tolerated the procedure well. Good hemostasis was obtained.
[2019-10-24] MEDS: APIXABAN 2.5 MG TABLET PO SCH (18:34)
--- NOTE | 2019-10-24 19:29 | EKG REPORT ---
SEVERITY:- ABNORMAL ECG - ATRIAL FIBRILLATION NONSPECIFIC INTRAVENTRICULAR CONDUCTION DELAY PROBABLE ANTEROSEPTAL INFARCT, AGE INDETERM : Confirmed by: Kassidy Robledo MD 24-Oct-2019 19:28:35
[2019-10-24] MEDS ORDERED: ATENOLOL 50 MG TABLET PO SCH (22:00)
[2019-10-25] MEDS: DEXTROSE 5%-WATER 250 ML with NOREPINEPHRINE BITARTRATE 4 MG IV PRN ×6 (02:50→15:31)
[2019-10-25] MEDS: RINGERS SOLUTION,LACTATED 1,000 ML IV PRN ×3 (04:22→21:24)
[2019-10-25] MEDS: PIPERACILLIN SODIUM/TAZOBACTAM 3.375 GM in NORMAL SALINE 100 ML IV SCH ×4 (05:14→23:33)
[2019-10-25] MEDS: PANTOPRAZOLE SODIUM 20 MG TABLET.DR PO SCH (05:15)
[2019-10-25 05:17] LABS: HEMATOCRIT 34.7 % (37.9-51.0); HEMOGLOBIN 10.7 g/dL (13.5-17.0); MEAN CORPUSCULAR HEMOGLOBIN 22.8 pg (27.0-33.4); MEAN CORPUSCULAR HGB CONC 30.7 g/dL (32.0-36.0); MEAN CORPUSCULAR VOLUME 74 fl (80-97); PLATELET COUNT 217 10^3/uL (150-450); RED BLOOD COUNT 4.68 10^6/uL (4.35-5.55); RED CELL DISTRIBUTION WIDTH 24.6 % (11.5-14.0); WHITE BLOOD COUNT 18.2 10^3/uL (4.0-10.5)
[2019-10-25 05:37] LABS: ALBUMIN 2.7 g/dL (3.5-5.0); ALKALINE PHOSPHATASE 96 U/L (38-126); ANION GAP 15 (5-19); ASPARTATE AMINO TRANSFERASE 39 U/L (17-59); BILIRUBIN,DIRECT 2.7 mg/dL (0.0-0.4); BILIRUBIN,TOTAL 3.9 mg/dL (0.2-1.3); BLOOD UREA NITROGEN 50 mg/dL (7-20); CALCIUM 7.9 mg/dL (8.4-10.2); CARBON DIOXIDE 21 mmol/L (22-30); CHLORIDE 97 mmol/L (98-107); GLUCOSE 101 mg/dL (75-110); TOTAL PROTEIN 5.6 g/dL (6.3-8.2)
[2019-10-25 05:42] LABS: ABSOLUTE LYMPHOCYTES# (MANUAL) 1.1 10^3/uL (0.5-4.7); ABSOLUTE MONOCYTES # (MANUAL) 0.4 10^3/uL (0.1-1.4); BAND NEUTROPHILS % (MANUAL) 4 % (3-5); BASOPHILS % (MANUAL) 0 % (0-2); EOSINOPHILS % (MANUAL) 0 % (0-6); LYMPHOCYTES % (MANUAL) 6 % (13-45); MONOCYTES % (MANUAL) 2 % (3-13); NUCLEATED RED BLOOD CELLS 1 /100 WBC (0); SEGMENTED NEUTROPHILS % (MAN) 88 % (42-78); TOTAL CELLS COUNTED 100
[2019-10-25 05:43] LABS: ANISOCYTOSIS 3+; PLATELET COMMENT ADEQUATE; POLYCHROMASIA 2+
[2019-10-25 05:51] LABS: POTASSIUM 4.5 mmol/L (3.6-5.0)
[2019-10-25 06:24] LABS: INTERNATIONAL RATION (INR) 3.48
[2019-10-25 06:27] LABS: PROTHROMBIN TIME 35.8 SEC (11.4-15.4)
[2019-10-25] MEDS: ALBUMIN HUMAN 12.5 GM/50 ML RTUINJ IV SCH ×4 (08:35→11:35)
--- NOTE | 2019-10-25 09:10 | PDOC CRITICAL CARE PROG REPORT ---
General Date:: 10/25/19 - Critical Care Attending Note Resuscitation Status: Full Code Events in the past 12 to 24 Hours:: Pt remains on levophed drip. Has no complaints this am Reason for ICU Addmission:: septic shock, HCAP, cellulitis - Medications: Medications reviewed and adjusted accordingly: Yes Physical Exam Vital Signs: Temp Pulse Resp BP Pulse Ox 98.1 F 80 18 113/79 100 10/25/19 05:32 10/25/19 08:14 10/25/19 08:00 10/25/19 07:54 10/25/19 08:00 Intake & Output 10/24/19 10/25/19 10/26/19 06:59 06:59 06:59 Intake Total 4966 69 Output Total 290 30 Balance 4676 39 Weight 103.3 kg 107.4 kg Weight/Height Weight 107.4 kg Height 6 ft General appearance: PRESENT: no acute distress, well-nourished Head exam: PRESENT: atraumatic, normocephalic Respiratory exam: PRESENT: clear to auscultation vasile, unlabored Cardiovascular exam: PRESENT: RRR GI/Abdominal exam: PRESENT: soft, other - non-tender, non-distended Gentrourinary exam: PRESENT: indwelling catheter Extremities exam: PRESENT: other - 4+ bilateral LE edema, erythema, open sores with purulent drainage LLE Neurological exam: PRESENT: alert, awake Laboratory/Radiographs Laboratory Results: 10/25/19 05:04 10/25/19 05:04 10/24/19 10/24/19 10/24/19 07:58 10:51 12:06 WBC RBC Hgb Hct MCV MCH MCHC RDW Plt Count Seg Neutrophils % Sodium Potassium Chloride Carbon Dioxide Anion Gap BUN Creatinine Est GFR ( Amer) Glucose Lactic Acid 5.4 H 5.2 H Calcium Total Bilirubin AST Alkaline Phosphatase Total Protein Albumin Urine Color DARBY Urine Appearance SLIGHTLY-CLOUDY Urine pH 5.0 Ur Specific [place] 1.018 Urine Protein 30 H Urine Glucose (UA) NEGATIVE Urine Ketones NEGATIVE Urine Blood NEGATIVE Urine RBC (Auto) 33 10/24/19 10/24/19 10/24/19 13:00 16:16 19:00 WBC RBC Hgb Hct MCV MCH MCHC RDW Plt Count Seg Neutrophils % Sodium Potassium Chloride Carbon Dioxide Anion Gap BUN Creatinine Est GFR ( Amer) Glucose Lactic Acid 4.7 H 5.0 H 4.0 H Calcium Total Bilirubin AST Alkaline Phosphatase Total Protein Albumin Urine Color Urine Appearance Urine pH Ur Specific [place] Urine Protein Urine Glucose (UA) Urine Ketones Urine Blood Urine RBC (Auto) 10/25/19 10/25/19 05:04 05:04 WBC 18.2 H RBC 4.68 Hgb 10.7 L Hct 34.7 L MCV 74 L MCH 22.8 L MCHC 30.7 L RDW 24.6 H Plt Count 217 Seg Neutrophils % Not Reportable Sodium 133.4 L Potassium 4.5 D Chloride 97 L Carbon Dioxide 21 L Anion Gap 15 BUN 50 H Creatinine 1.72 H Est GFR ( Amer) 46 L Glucose 101 Lactic Acid Calcium 7.9 L Total Bilirubin 3.9 H AST 39 Alkaline Phosphatase 96 Total Protein 5.6 L Albumin 2.7 L Urine Color Urine Appearance Urine pH Ur Specific [place] Urine Protein Urine Glucose (UA) Urine Ketones Urine Blood Urine RBC (Auto) 10/24/19 07:50 Blood Blood Culture (PCR) - Final Staphylococcus Aureus Pseudomonas Aeruginosa 10/24/19 06:41 Troponin I 0.406 Impressions: Lower Extremity CT 10/24/19 00:00 IMPRESSION: There is subcutaneous edema in the left leg. Correlate for cellulitis. No other significant finding. Ankle X-Ray 10/24/19 07:04 IMPRESSION: 1. Degenerative changes of the left ankle and midfoot. 2. Diffuse soft tissue swelling surrounding the left ankle. 3. No definite radiographic findings to suggest osteomyelitis. Foot X-Ray 10/24/19 07:05 IMPRESSION: 1. No definite acute osseous abnormality or definite findings to suggest acute osteomyelitis. 2. Degenerative changes of the midfoot and hindfoot. 3. Diffuse soft tissue swelling surrounding the left foot. There are questionable 1 cm soft tissue masses along the dorsal aspect of the left foot best appreciated on the lateral projection. Chest X-Ray 10/24/19 15:53 IMPRESSION: The tip of the right IJ central venous catheter projects within the right atrium. Assessment and Plan - Diagnosis (1) Septic shock Is this a current diagnosis for this admission?: Yes (2) Cellulitis Is this a current diagnosis for this admission?: Yes (3) HCAP (healthcare-associated pneumonia) Is this a current diagnosis for this admission?: Yes (4) BEVERLY (acute kidney injury) Is this a current diagnosis for this admission?: Yes (5) Leg edema Is this a current diagnosis for this admission?: Yes (6) Afib Qualifiers: Atrial fibrillation type: unspecified Qualified Code(s): I48.91 - Unspecif ied atrial fibrillation Is this a current diagnosis for this admission?: Yes (7) Staphylococcus aureus bacteremia with sepsis Is this a current diagnosis for this admission?: Yes (8) Pseudomonas aeruginosa infection Is this a current diagnosis for this admission?: Yes Plan Summary: Assessment: Critically ill 84 yo man with septic shock, HCAP, cellulitis of lower extremities, afib, BEVERLY, vascular insufficiency, bacteremia due to staph and pseudomonas. Plan: 1. Respiratory: stable on nasal cannula 2. Pulmonary: HCAP. Day 2 Vanc and zosyn 3. CV: hypotension due to septic shock. Continue IVF and levophed.. Echo done recently shows EF of 60% Afib, rate controlled. On eliquis 4. Renal: BEVERLY, creating increased to 1.72. IVF. Renally dose meds 5. Vascular: severe LE edema. Doubt compartment syndrome as both legs are very edematous,although leg leg moreso than right. arterial and venous dopplers are pending. 6. ID: septic shock, HCAP, LE cellultis, bacteremia due to staph and pseudomonas. Day 2 Vanc and zosyn. 7. Heme: on eliquis for afib 8. Endocrine: monitor blood sugars 9. Nutrition: cardic diet 10. Prophylaxis: DVT prophylaxis not needed b/c pt is on eliquis. Critical care time= 35 min, excluding procedures Critical Time Critical Time (minutes): 35 Level of Care: ICU -: 1. The care of a critical patient is a dynamic process. This note is a repr esentative synopsis but static in nature. The timeframe for treatments given in order is not necessarily the actual time these treatments may have been done. 2. This patient requires critical care secondary to ongoing requirements for therapy not offered or safe outside the critical care environment. Transfer to a lower level of care will result in altered life or limb morbidity and mortality. 3. Multidisciplinary rounds completed. 4. ABCDE bundle addressed.
[2019-10-25] MEDS: APIXABAN 2.5 MG TABLET PO SCH ×2 (09:48→17:43)
[2019-10-25] MEDS: TAMSULOSIN HCL 0.4 MG CAP.SR.24H PO SCH (09:48)
--- NOTE | 2019-10-25 13:49 | EKG REPORT ---
SEVERITY:- ABNORMAL ECG - ATRIAL FIBRILLATION, V-RATE 68-[address]LE BRANCH BLOCK BORDERLINE ST DEPRESSION, DIFFUSE LEADS : Confirmed by: Kassidy Robledo MD 25-Oct-2019 13:48:46
[2019-10-25] MEDS: VANCOMYCIN HCL 1,500 MG in DEXTROSE 5%-WATER 250 ML IV SCH (14:35)
[2019-10-25] MEDS ORDERED: AMIODARONE HCL INJ 150 MG/3 ML VIAL IV ONE ×2 (18:15→18:18)
[2019-10-25] MEDS ORDERED: PHENYLEPHRINE HCL INJ/PF 10 MG/1 ML SDV ONE (18:23)
[2019-10-25] MEDS: DEXTROSE 5%-WATER 250 ML with PHENYLEPHRINE HCL 40 MG IV PRN ×2 (18:40)
[2019-10-25] MEDS: DEXTROSE 5%-WATER 500 ML with AMIODARONE HCL 900 MG IV PRN ×2 (19:00)
[2019-10-25 19:14] LABS: ANION GAP 14 (5-19); BLOOD UREA NITROGEN 50 mg/dL (7-20); CALCIUM 7.8 mg/dL (8.4-10.2); CARBON DIOXIDE 22 mmol/L (22-30); CHLORIDE 95 mmol/L (98-107); GLUCOSE 181 mg/dL (75-110); POTASSIUM 4.3 mmol/L (3.6-5.0)
[2019-10-25] MEDS ORDERED: AMIODARONE HCL 150 MG in DEXTROSE 5%-WATER 100 ML IV ONE (19:30)
[2019-10-25] MEDS: MORPHINE SULFATE 10 MG/ML INJ IV PRN (23:16)
[2019-10-26] MEDS ORDERED: PHENYLEPHRINE HCL INJ/PF 10 MG/1 ML SDV ONE (03:46)
[2019-10-26] MEDS: DEXTROSE 5%-WATER 250 ML with PHENYLEPHRINE HCL 40 MG IV PRN ×4 (03:55→13:31)
[2019-10-26 05:27] LABS: HEMATOCRIT 31.3 % (37.9-51.0); HEMOGLOBIN 9.5 g/dL (13.5-17.0); MEAN CORPUSCULAR HEMOGLOBIN 22.6 pg (27.0-33.4); MEAN CORPUSCULAR HGB CONC 30.3 g/dL (32.0-36.0); MEAN CORPUSCULAR VOLUME 75 fl (80-97); PLATELET COUNT 167 10^3/uL (150-450); RED BLOOD COUNT 4.18 10^6/uL (4.35-5.55); RED CELL DISTRIBUTION WIDTH 24.3 % (11.5-14.0); WHITE BLOOD COUNT 24.1 10^3/uL (4.0-10.5)
[2019-10-26 05:35] LABS: ANION GAP 15 (5-19); BLOOD UREA NITROGEN 53 mg/dL (7-20); CALCIUM 7.7 mg/dL (8.4-10.2); CARBON DIOXIDE 21 mmol/L (22-30); CHLORIDE 95 mmol/L (98-107); GLUCOSE 174 mg/dL (75-110); POTASSIUM 4.2 mmol/L (3.6-5.0)
[2019-10-26] MEDS: PANTOPRAZOLE SODIUM 20 MG TABLET.DR PO SCH (05:42)
[2019-10-26] MEDS: PIPERACILLIN SODIUM/TAZOBACTAM 3.375 GM in NORMAL SALINE 100 ML IV SCH ×4 (05:42→23:14)
[2019-10-26 06:07] LABS: ABSOLUTE LYMPHOCYTES# (MANUAL) 0.5 10^3/uL (0.5-4.7); BAND NEUTROPHILS % (MANUAL) 3 % (3-5); BASOPHILS % (MANUAL) 0 % (0-2); EOSINOPHILS % (MANUAL) 0 % (0-6); LYMPHOCYTES % (MANUAL) 2 % (13-45); MONOCYTES % (MANUAL) 4 % (3-13); NUCLEATED RED BLOOD CELLS 2 /100 WBC (0); SEGMENTED NEUTROPHILS % (MAN) 91 % (42-78); TOTAL CELLS COUNTED 100; TOXIC GRANULATION 1+
[2019-10-26 06:10] LABS: ANISOCYTOSIS 3+; BURR CELLS 2+; HYPOCHROMASIA 1+; OVALOCYTES 2+; POIKILOCYTOSIS 3+; SCHISTOCYTES SLIGHT; TARGET CELLS 1+; TEAR DROP CELLS 1+
[2019-10-26 06:11] LABS: PLATELET COMMENT ADEQUATE
[2019-10-26] MEDS: RINGERS SOLUTION,LACTATED 1,000 ML IV PRN ×2 (06:15→14:55)
[2019-10-26] MEDS: DEXTROSE 5%-WATER 500 ML with AMIODARONE HCL 900 MG IV PRN ×2 (10:14)
[2019-10-26] MEDS: APIXABAN 2.5 MG TABLET PO SCH ×3 (10:14→17:48)
[2019-10-26] MEDS: TAMSULOSIN HCL 0.4 MG CAP.SR.24H PO SCH ×2 (10:14→12:29)
[2019-10-26] MEDS ORDERED: DEXTROSE 50%-WATER 25 GM/50 ML DISP.SYRIN IV PRN ×4 (10:37→10:42)
[2019-10-26] MEDS ORDERED: DEXTROSE 40% GEL 15 GM TUBE PO PRN ×4 (10:37→10:42)
[2019-10-26] MEDS ORDERED: GLUCAGON,HUMAN RECOMB 1 MG INJ SUBCUT PRN (10:37)
[2019-10-26] MEDS ORDERED: GLUCAGON,HUMAN RECOMB 1 MG INJ IM PRN (10:42)
--- NOTE | 2019-10-26 11:59 | RADIOLOGY REPORT (SQ) ---
EXAM DESCRIPTION: CHEST SINGLE VIEW COMPLETED DATE/TIME: 10/26/2019 11:10 am REASON FOR STUDY: PNA COMPARISON: 10/24/2019 FINDINGS: Single-view chest AP portable upright. Right IJ line, stable. Cardiomegaly. Stable cardiomediastinal silhouette. Worsening bibasilar aeration with dense left lower lobe consolidation and progressive right lower lob e airspace disease and pleural fluid. TECHNICAL DOCUMENTATION: JOB ID: [id number] Reading location - IP/workstation name: [email or web address]
--- NOTE | 2019-10-26 12:05 | PDOC CRITICAL CARE PROG REPORT ---
General Date:: 10/26/19 - Critical Care Attending Note Resuscitation Status: Full Code Events in the past 12 to 24 Hours:: Is on amiodarone drip and marline infusion. Still with leg pain. Nurse reports pt has difficulty swallowing. Reason for ICU Addmission:: septic shock, HCAP, cellulitis - Medications: Medications reviewed and adjusted accordingly: Yes Physical Exam Vital Signs: Temp Pulse Resp BP Pulse Ox 97.2 F 65 16 96/59 L 98 10/26/19 08:00 10/26/19 08:00 10/26/19 08:00 10/26/19 08:00 10/26/19 08:00 Intake & Output 10/25/19 10/26/19 10/27/19 06:59 06:59 06:59 Intake Total 5066 4858 500 Output Total 290 540 20 Balance 4776 4318 480 Weight 107.4 kg 111.8 kg Weight/Height Weight 111.8 kg Height 6 ft General appearance: PRESENT: no acute distress, well-developed, well-nourished, other - awake, alert, talkative Head exam: PRESENT: atraumatic, normocephalic Respiratory exam: PRESENT: rhonchi, unlabored Cardiovascular exam: PRESENT: irregular rhythm GI/Abdominal exam: PRESENT: soft Gentrourinary exam: PRESENT: indwelling catheter Extremities exam: PRESENT: other - 3+ edema. bilateral LE edema R>L, open sores with purulent drainage on left leg Neurological exam: PRESENT: CN II-XII grossly intact Laboratory/Radiographs Laboratory Results: 10/26/19 05:00 10/26/19 05:00 10/25/19 10/26/19 10/26/19 18:51 05:00 05:00 WBC 24.1 H RBC 4.18 L Hgb 9.5 L Hct 31.3 L MCV 75 L MCH 22.6 L MCHC 30.3 L RDW 24.3 H Plt Count 167 Seg Neutrophils % Not Reportable Sodium 131.4 L 131.1 L Potassium 4.3 4.2 Chloride 95 L 95 L Carbon Dioxide 22 21 L Anion Gap 14 15 BUN 50 H 53 H Creatinine 1.64 H 1.74 H Est GFR ( Amer) 48 L 45 L Glucose 181 H 174 H Calcium 7.8 L 7.7 L Magnesium 1.9 10/24/19 06:41 Blood Blood Culture (PCR) - Final Pseudomonas Aeruginosa 10/24/19 07:50 Blood Blood Culture (PCR) - Final Staphylococcus Aureus Pseudomonas Aeruginosa 10/24/19 06:41 Troponin I 0.406 Impressions: Lower Extremity CT 10/24/19 00:00 IMPRESSION: There is subcutaneous edema in the left leg. Correlate for cellulitis. No other significant finding. Ankle X-Ray 10/24/19 07:04 IMPRESSION: 1. Degenerative changes of the left ankle and midfoot. 2. Diffuse soft tissue swelling surrounding the left ankle. 3. No definite radiographic findings to suggest osteomyelitis. Foot X-Ray 10/24/19 07:05 IMPRESSION: 1. No definite acute osseous abnormality or definite findings to suggest acute osteomyelitis. 2. Degenerative changes of the midfoot and hindfoot. 3. Diffuse soft tissue swelling surrounding the left foot. There are questionable 1 cm soft tissue masses along the dorsal aspect of the left foot best appreciated on the lateral projection. Assessment and Plan - Diagnosis (1) Septic shock Is this a current diagnosis for this admission?: Yes (2) Cellulitis Is this a current diagnosis for this admission?: Yes (3) HCAP (healthcare-associated pneumonia) Is this a current diagnosis for this admission?: Yes (4) BEVERLY (acute kidney injury) Is this a current diagnosis for this admission?: Yes (5) Leg edema Is this a current diagnosis for this admission?: Yes (6) Afib Qualifiers: Atrial fibrillation type: unspecified Qualified Code(s): I48.91 - Unspecified atrial fibrillation Is this a current diagnosis for this admission?: Yes (7) Staphylococcus aureus bacteremia with sepsis Is this a current diagnosis for this admission?: Yes (8) Pseudomonas aeruginosa infection Is this a current diagnosis for this admission?: Yes Plan Summary: Assessment: Critically ill 84 yo man with septic shock, HCAP, cellulitis of lower extremities, afib, BEVERLY, vascular insufficiency, bacteremia due to staph and pseudomonas. Plan: 1. Respiratory: stable on nasal cannula 2. Pulmonary: HCAP. Day 3 Vanc and zosyn. WBC increasing. Will order CT of chest. 3. CV: hypotension due to septic shock. Afib with RVR. Continue amiodarone infusion and neosynephrine infusion.. Echo done recently shows EF of 60% On eliquis 4. Renal: BEVERLY, creating increased to 1.74. Contiue IVF 5. Vascular: severe LE edema. Doubt compartment syndrome as both legs are very edematous,although leg leg moreso than right. arterial and venous dopplers are pending. Cellulitis with open sores. Wound care. Will check CK level 6. ID: septic shock, HCAP, LE cellultis, bacteremia due to staph and pseudomona s. Day 3 Vanc and zosyn. WBC still increasing. Will check CXR. Had CT scan of left leg on admission. Will check CT scan of right leg. Will order CT of chest. Repeat cultures. 7. Heme: on eliquis for afib 8. Endocrine: accuchecks, SSI. 9. Nutrition: NPO. Speech therapy consult for swallow eval 10. Prophylaxis: DVT prophylaxis not needed b/c pt is on eliquis. Critical care time= 35 min, excluding procedure Critical Time Critical Time (minutes): 35 Level of Care: ICU -: 1. The care of a critical patient is a dynamic process. This note is a registration representative synopsis but static in nature. The timeframe for treatments given in order is not necessarily the actual time these treatments may have been done. 2. This patient requires critical care secondary to ongoing requirements for therapy not offered or safe outside the critical care environment. Transfer to a lower level of care will result in altered life or limb morbidity and mortality. 3. Multidisciplinary rounds completed. 4. ABCDE bundle addressed.
[2019-10-26] MEDS: INSULIN REG, HUMAN 100 UNIT/ML 3 ML VIAL (PYX) SUBCUT SCH ×3 (13:49→23:12)
[2019-10-26] MEDS: VANCOMYCIN HCL 1,500 MG in DEXTROSE 5%-WATER 250 ML IV SCH (15:49)
[2019-10-26] MEDS: MORPHINE SULFATE 10 MG/ML INJ IV PRN ×2 (16:10→22:44)
[2019-10-27 04:38] LABS: HEMATOCRIT 33.2 % (37.9-51.0); MEAN CORPUSCULAR HEMOGLOBIN 22.7 pg (27.0-33.4); MEAN CORPUSCULAR HGB CONC 30.3 g/dL (32.0-36.0); MEAN CORPUSCULAR VOLUME 75 fl (80-97); PLATELET COUNT 151 10^3/uL (150-450); RED BLOOD COUNT 4.43 10^6/uL (4.35-5.55); RED CELL DISTRIBUTION WIDTH 24.2 % (11.5-14.0); WHITE BLOOD COUNT 26.5 10^3/uL (4.0-10.5)
[2019-10-27 04:46] LABS: BLOOD UREA NITROGEN 54 mg/dL (7-20); CALCIUM 7.8 mg/dL (8.4-10.2); CARBON DIOXIDE 20 mmol/L (22-30); CHLORIDE 92 mmol/L (98-107); GLUCOSE 97 mg/dL (75-110); POTASSIUM 4.3 mmol/L (3.6-5.0)
[2019-10-27 04:47] LABS: ANION GAP 18 (5-19)
[2019-10-27] MEDS: DEXTROSE 5%-WATER 250 ML with PHENYLEPHRINE HCL 40 MG IV PRN ×10 (04:52→20:42)
[2019-10-27 05:01] LABS: CREATINE KINASE < 20 U/L (55-170)
[2019-10-27 05:06] LABS: ABSOLUTE LYMPHOCYTES# (MANUAL) 1.1 10^3/uL (0.5-4.7); ANISOCYTOSIS 3+; BAND NEUTROPHILS % (MANUAL) 6 % (3-5); BASOPHILS % (MANUAL) 0 % (0-2); EOSINOPHILS % (MANUAL) 0 % (0-6); HYPOCHROMASIA 1+; LYMPHOCYTES % (MANUAL) 4 % (13-45); MONOCYTES % (MANUAL) 0 % (3-13); NUCLEATED RED BLOOD CELLS 3 /100 WBC (0); POIKILOCYTOSIS 1+; POLYCHROMASIA 2+; SEGMENTED NEUTROPHILS % (MAN) 90 % (42-78); TEAR DROP CELLS 1+; TOTAL CELLS COUNTED 100
[2019-10-27 05:07] LABS: PLATELET COMMENT ADEQUATE
[2019-10-27] MEDS: PANTOPRAZOLE SODIUM 20 MG TABLET.DR PO SCH (05:08)
[2019-10-27] MEDS: INSULIN REG, HUMAN 100 UNIT/ML 3 ML VIAL (PYX) SUBCUT SCH ×3 (05:25→17:11)
[2019-10-27] MEDS: PIPERACILLIN SODIUM/TAZOBACTAM 3.375 GM in NORMAL SALINE 100 ML IV SCH (05:25)
--- NOTE | 2019-10-27 08:34 | RADIOLOGY REPORT (SQ) ---
EXAM DESCRIPTION: CT RT LOWER EXTREMITY WITHOUT COMPLETED DATE/TIME: 10/26/2019 4:51 pm REASON FOR STUDY: severe RLE pain and swelling, eval for cellulitis COMPARISON: None. TECHNIQUE: Axial imaging performed through the right lower leg with reformatted coronal and sagittal imaging windowed for bone and soft tissues. Images saved to PACS. 3D IMAGING: Were 3D images as MIP, SSD, or volume rendering performed at the work station? No. All CT scanners at this facility use dose modulation, iterative reconstruction, and/or weight based d osing when appropriate to reduce radiation dose to as low as reasonably achievable (ALARA). [facility]: Dose Right [facility]: CareDose [facility]: Dose Right [facility]: Teradose 4D [facility]: [employer] LIMITATIONS: None. RADIATION DOSE: CT Rad equipment meets quality standard of care and radiation dose reduction techniq ues were employed. CTDIvol: 4.1 mGy. DLP: 255 mGy-cm. mGy. FINDINGS: SOFT TISSUES: Diffuse edema in the subcutaneous soft tissues throughout the lower leg, mos t pronounced along the anterior surface and extending to the dorsum of the foot. No discrete fluid c ollections. BONES: No acute fracture. No dislocation. MINERALIZATION: Normal. OTHER: No other significant finding. IMPRESSION: DIFFUSE SOFT TISSUE EDEMA WHICH COULD BE DUE TO CELLULITIS AND UNDERLYING SOFT TISSUE IN FECTION. NO DISCRETE ABSCESS DEMONSTRATED. TECHNICAL DOCUMENTATION: JOB ID: [id number] Quality ID # [id number]: Final reports with documentation of one or more dose reduction techniques (e.g., Au tomated exposure control, adjustment of the mA and/or kV according to patient size, use of iterative reconstruction technique) 2010 [employer]- All Rights Reserved Reading location - IP/workstation name: [email or web address]
--- NOTE | 2019-10-27 08:41 | RADIOLOGY REPORT (SQ) ---
EXAM DESCRIPTION: CT CHEST WITHOUT COMPLETED DATE/TIME: 10/26/2019 4:51 pm REASON FOR STUDY: PNA, septic shock COMPARISON: Chest x-ray dated 10/26/2019. TECHNIQUE: CT scan performed of the chest without intravenous contrast. Images reviewed with lung, soft tissue and bone windows. Reconstructed coronal and sagittal MPR images reviewed. All images st ored on PACS. All CT scanners at this facility use dose modulation, iterative reconstruction, and/or weight based d osing when appropriate to reduce radiation dose to as low as reasonably achievable (ALARA). [facility]: Dose Right [facility]: CareDose [facility]: Dose Right [facility]: Teradose 4D [facility]: Three Ring RADIATION DOSE: CT Rad equipment meets quality standard of care and radiation dose reduction techniq ues were employed. CTDIvol: 18.6 - 20.9 mGy. DLP: 1281 mGy-cm. mGy. LIMITATIONS: No technical limitations. FINDINGS: LUNGS AND PLEURA: Moderately large bilateral pleural effusions. Bilateral lower lobe airs pace disease. HILAR AND MEDIASTINAL STRUCTURES: No identified masses or abnormal nodes. No obvious aneurysm. HEART AND VASCULAR STRUCTURES: No aneurysm. Cardiomegaly. Coronary artery calcifications. No peric ardial effusion. UPPER ABDOMEN: No significant findings. Limited exam. THYROID AND OTHER SOFT TISSUES: No masses. No adenopathy. BONES: No significant finding. Degenerative changes in the spine. HARDWARE: Central line. OTHER: No other significant findings. IMPRESSION: CARDIOMEGALY. MODERATELY LARGE BILATERAL PLEURAL EFFUSIONS. BILATERAL LOWER LOBE AIRSP NIKKIE DISEASE MOST LIKELY DUE TO COMPRESSIVE ATELECTASIS. SUPERIMPOSED INFECTION MAY BE POSSIBLE. TECHNICAL DOCUMENTATION: JOB ID: [id number] Quality ID # [id number]: Final reports with documentation of one or more dose reduction techniques (e.g., Au tomated exposure control, adjustment of the mA and/or kV according to patient size, use of iterative reconstruction technique) 2010 [employer]- All Rights Reserved Reading location - IP/workstation name: [email or web address]
[2019-10-27] MEDS: APIXABAN 2.5 MG TABLET PO SCH (10:22)
[2019-10-27] MEDS: TAMSULOSIN HCL 0.4 MG CAP.SR.24H PO SCH (10:22)
[2019-10-27] MEDS: MEROPENEM 1 GM in NORMAL SALINE 50 ML IV SCH ×2 (10:23→21:20)
[2019-10-27] MEDS: DEXTROSE 5%-WATER 500 ML with AMIODARONE HCL 900 MG IV PRN ×2 (11:12)
--- NOTE | 2019-10-27 11:42 | PDOC CRITICAL CARE PROG REPORT ---
General Date:: 10/27/19 - Critical Care Progress Note Resuscitation Status: Full Code Events in the past 12 to 24 Hours:: Pt remains on levophed infusion. Has no complaints. Reason for ICU Addmission:: septic shock, HCAP, cellulitis Physical Exam Vital Signs: Temp Pulse Resp BP Pulse Ox 97.3 F 68 11 L 100/60 98 10/27/19 08:00 10/27/19 10:00 10/27/19 10:11 10/27/19 10:52 10/27/19 10:11 Intake & Output 10/26/19 10/27/19 10/28/19 06:59 06:59 06:59 Intake Total 4858 2748 599 Output Total 540 235 40 Balance 4318 2513 559 Weight 111.8 kg 113.2 kg Weight/Height Weight 113.2 kg Height 6 ft General appearance: PRESENT: no acute distress, well-developed, well-nourished Respiratory exam: PRESENT: decreased breath sounds Cardiovascular exam: PRESENT: irregular rhythm GI/Abdominal exam: PRESENT: soft Gentrourinary exam: PRESENT: indwelling catheter Extremities exam: PRESENT: other - 3+ edema Neurological exam: PRESENT: alert, awake Laboratory/Radiographs Laboratory Results: 10/27/19 03:45 10/27/19 03:45 10/27/19 10/27/19 10/27/19 03:45 03:45 03:45 WBC 26.5 H RBC 4.43 Hgb 10.0 L Hct 33.2 L MCV 75 L MCH 22.7 L MCHC 30.3 L RDW 24.2 H Plt Count 151 Seg Neutrophils % Not Reportable Sodium 130.0 L Potassium 4.3 Chloride 92 L Carbon Dioxide 20 L Anion Gap 18 BUN 54 H Creatinine 2.02 H Est GFR ( Amer) 38 L Glucose 97 Calcium 7.8 L Magnesium 2.0 10/24/19 06:41 Blood Blood Culture (PCR) - Final Pseudomonas Aeruginosa 10/24/19 06:41 Blood Blood Culture - Final Pseudomonas Aeruginosa Staphylococcus Aureus 10/24/19 07:50 Blood Blood Culture (PCR) - Final Staphylococcus Aureus Pseudomonas Aeruginosa 10/24/19 07:50 Blood Blood Culture - Final Staphylococcus Aureus Pseudomonas Aeruginosa 10/24/19 07:58 Clean Catch Midstream Urine Culture - Final Staphylococcus Aureus Enterococcus Faecalis(Group D) 10/24/19 10/27/19 06:41 03:45 Creatine Kinase < 20 L Troponin I 0.406 Impressions: Ankle X-Ray 10/24/19 07:04 IMPRESSION: 1. Degenerative changes of the left ankle and midfoot. 2. Diffuse soft tissue swelling surrounding the left ankle. 3. No definite radiographic findings to suggest osteomyelitis. Foot X-Ray 10/24/19 07:05 IMPRESSION: 1. No definite acute osseous abnormality or definite findings to suggest acute osteomyelitis. 2. Degenerative changes of the midfoot and hindfoot. 3. Diffuse soft tissue swelling surrounding the left foot. There are questionable 1 cm soft tissue masses along the dorsal aspect of the left foot best appreciated on the lateral projection. Chest CT 10/26/19 00:00 IMPRESSION: CARDIOMEGALY. MODERATELY LARGE BILATERAL PLEURAL EFFUSIONS. BILATERAL LOWER LOBE AIRSPACE DISEASE MOST LIKELY DUE TO COMPRESSIVE ATELECTASIS. SUPERIMPOSED INFECTION MAY BE POSSIBLE. Lower Extremity CT 10/26/19 00:00 IMPRESSION: DIFFUSE SOFT TISSUE EDEMA WHICH COULD BE DUE TO CELLULITIS AND UNDERLYING SOFT TISSUE INFECTION. NO DISCRETE ABSCESS DEMONSTRATED. Assessment and Plan - Diagnosis (1) Septic shock Is this a current diagnosis for this admission?: Yes (2) Cellulitis Is this a current diagnosis for this admission?: Yes (3) HCAP (healthcare-associated pneumonia) Is this a current diagnosis for this admission?: Yes (4) BEVERLY (acute kidney injury) Is this a current diagnosis for this admission?: Yes (5) Leg edema Is this a current diagnosis for this admission?: Yes (6) Afib Qualifiers: Atrial fibrillation type: unspecified Qualified Code(s): I48.91 - Unspecified atrial fibrillation Is this a current diagnosis for this admission?: Yes (7) Staphylococcus aureus bacteremia with sepsis Is this a current diagnosis for this admission?: Yes (8) Pseudomonas aeruginosa infection Is this a current diagnosis for this admission?: Yes Plan Summary: Assessment: Critically ill 84 yo man with septic shock, HCAP, cellulitis of lower extremities, afib, BEVERLY, vascular insufficiency, bacteremia due to staph and pseudomonas. Plan: 1. Respiratory: stable on nasal cannula 2. Pulmonary: HCAP. Aspiration PNA. ABX Day 4 Vanc and zosyn. WBC increasing. Will d/c zosyn and start meropenem.. Moderate bilateral pleural effusion. Pt needs thoracentesis. Will d/c eliquis. 3. CV: hypotension due to septic shock. Afib with RVR. Continue amiodarone infusion and neosynephrine infusion.Add levophed. Echo done recently shows EF of 60% . Hold eliquis in anticipation for thoracentesis. 4. Renal: BEVERLY,worsening. Cr has increased to 2.32. Marginal UOP. No need for DEBT COLLECTOR at this time 5. Vascular: severe LE edema. Doubt compartment syndrome as both legs are very edematous,although leg leg moreso than right. arterial and venous dopplers are pending. Cellulitis with open sores. Wound care. 6. ID: septic shock, HCAP, LE cellultis, bacteremia due to MSSA and pseudomonas, UTI due to e.faecalis. ATBX Day 4 Vanc and zosyn. WBC still increasing. Will d/c zosyn and start meropenem. Repeat cultures. 7. Heme: on eliquis for afib. Will stop in anticipation of thoracentesis 8. Endocrine: accuchecks, SSI. Will start stress dose steroids. 9. Nutrition: NPO. Speech therapy consult for swallow eval 10. Prophylaxis: DVT prophylaxis not needed b/c pt is on eliquis. Critical care time= 40 min, excluding procedure Critical Time Critical Time (minutes): 40 Level of Care: ICU -: 1. The care of a critical patient is a dynamic process. This note is a technology sales representative synopsis but static in nature. The timeframe for treatments given in order is not necessarily the actual time these treatments may have been done. 2. This patient requires critical care secondary to ongoing requirements for therapy not offered or safe outside the critical care environment. Transfer to a lower level of care will result in altered life or limb morbidity and mortality. 3. Multidisciplinary rounds completed. 4. ABCDE bundle addressed.
[2019-10-27] MEDS ORDERED: NOREPINEPHRINE BITARTRATE INJ/PF 4 MG/4 ML SDV IV ONE (12:33)
[2019-10-27 13:00] LABS: ALBUMIN 2.7 g/dL (3.5-5.0); ALKALINE PHOSPHATASE 96 U/L (38-126); ASPARTATE AMINO TRANSFERASE 81 U/L (17-59); BILIRUBIN,DIRECT 3.9 mg/dL (0.0-0.4); BILIRUBIN,TOTAL 5.3 mg/dL (0.2-1.3); TOTAL PROTEIN 5.4 g/dL (6.3-8.2)
[2019-10-27] MEDS: DEXTROSE 5%-WATER 250 ML with NOREPINEPHRINE BITARTRATE 4 MG IV PRN ×2 (13:00)
[2019-10-27] MEDS: HYDROCORTISONE SOD SUCCINATE INJ/PF 100 MG/2 ML SDV IV SCH ×2 (13:05→21:20)
[2019-10-27] MEDS: VANCOMYCIN HCL 1,500 MG in DEXTROSE 5%-WATER 250 ML IV SCH (15:32)
[2019-10-27 16:14] LABS: VANCOMYCIN,TROUGH 13.3 ug/mL (5.0-20.0)
[2019-10-28] MEDS: MORPHINE SULFATE 10 MG/ML INJ IV PRN (00:10)
[2019-10-28] MEDS: INSULIN REG, HUMAN 100 UNIT/ML 3 ML VIAL (PYX) SUBCUT SCH ×5 (00:11→23:35)
[2019-10-28] MEDS: DEXTROSE 5%-WATER 250 ML with PHENYLEPHRINE HCL 40 MG IV PRN ×8 (00:27→21:47)
[2019-10-28] MEDS: DEXTROSE 5%-WATER 250 ML with NOREPINEPHRINE BITARTRATE 4 MG IV PRN ×2 (04:08)
[2019-10-28 04:31] LABS: HEMATOCRIT 35.6 % (37.9-51.0); HEMOGLOBIN 10.8 g/dL (13.5-17.0); MEAN CORPUSCULAR HEMOGLOBIN 22.8 pg (27.0-33.4); MEAN CORPUSCULAR HGB CONC 30.3 g/dL (32.0-36.0); MEAN CORPUSCULAR VOLUME 75 fl (80-97); PLATELET COUNT 146 10^3/uL (150-450); RED BLOOD COUNT 4.72 10^6/uL (4.35-5.55); RED CELL DISTRIBUTION WIDTH 24.7 % (11.5-14.0); WHITE BLOOD COUNT 23.5 10^3/uL (4.0-10.5)
[2019-10-28 05:01] LABS: ABSOLUTE LYMPHOCYTES# (MANUAL) 0.2 10^3/uL (0.5-4.7); ABSOLUTE MONOCYTES # (MANUAL) 1.2 10^3/uL (0.1-1.4); BAND NEUTROPHILS % (MANUAL) 3 % (3-5); BASOPHILS % (MANUAL) 0 % (0-2); EOSINOPHILS % (MANUAL) 0 % (0-6); LYMPHOCYTES % (MANUAL) 1 % (13-45); MONOCYTES % (MANUAL) 5 % (3-13); NUCLEATED RED BLOOD CELLS 1 /100 WBC (0); SEGMENTED NEUTROPHILS % (MAN) 91 % (42-78); TOTAL CELLS COUNTED 100
[2019-10-28 05:04] LABS: ANISOCYTOSIS 3+; PLATELET COMMENT DECREASED
[2019-10-28 05:05] LABS: HYPOCHROMASIA 1+
[2019-10-28 05:08] LABS: TARGET CELLS SLIGHT; TEAR DROP CELLS SLIGHT
[2019-10-28 05:11] LABS: ANION GAP 14 (5-19); BLOOD UREA NITROGEN 54 mg/dL (7-20); CALCIUM 7.9 mg/dL (8.4-10.2); CARBON DIOXIDE 21 mmol/L (22-30); CHLORIDE 92 mmol/L (98-107); GLUCOSE 141 mg/dL (75-110); POTASSIUM 4.5 mmol/L (3.6-5.0)
[2019-10-28] MEDS: PANTOPRAZOLE SODIUM 20 MG TABLET.DR PO SCH (06:03)
[2019-10-28] MEDS: HYDROCORTISONE SOD SUCCINATE INJ/PF 100 MG/2 ML SDV IV SCH ×3 (06:04→21:10)
--- NOTE | 2019-10-28 09:01 | RADIOLOGY REPORT (SQ) ---
EXAM DESCRIPTION: U/S RETROPERITON (RENAL/AORTA) COMPLETED DATE/TIME: 10/28/2019 5:23 am REASON FOR STUDY: BEVERLY COMPARISON: None. TECHNIQUE: Dynamic and static grayscale images acquired of the kidneys and bladder and recorded on P ACS. Additional selected color Doppler and spectral images recorded. LIMITATIONS: Acoustical interference from soft tissues. Limited visualization of the left kidney pa rticularly. FINDINGS: RIGHT KIDNEY: Normal size. Normal echogenicity. No solid or suspicious masses. No hydronep hrosis. No calcifications. LEFT KIDNEY: Normal size. Normal echogenicity. No solid or suspicious masses. Circumscribed cystic mass at the midpole measures 4.1 cm. No hydronephrosis. No calcifications. BLADDER: Trivedi catheter decompresses the bladder, not seen. OTHER FINDINGS: Right pleural effusion. IMPRESSION: 1. No urinary obstruction or suspicious mass. Other findings as above. TECHNICAL DOCUMENTATION: JOB ID: [id number] [employer]- All Rights Reserved Reading location - IP/workstation name: [email or web address]
--- NOTE | 2019-10-28 09:33 | RADIOLOGY REPORT (SQ) ---
EXAM DESCRIPTION: CRYSTAL SWALLOW COMPLETED DATE/TIME: 10/28/2019 8:17 am REASON FOR STUDY: Signs/symptoms of aspiration COMPARISON: None. TECHNIQUE: Videofluoroscopic swallowing examination was performed in conjunction with speech patholo gy. Videofluoroscopic imaging was obtained and reviewed and these are the findings: RADIATION DOSE: Fluoro time 5.33 minutes 1 images saved to PACS. LIMITATIONS: None FINDINGS: The patient was brought into the fluoro room and placed upright on a modified barium swall ow chair. The patient was then given multiple consistencies mixed with barium to swallow under live fluoroscopic video guidance. According to the Speech Pathologist all consistencies were swallowed wi thout incident, however laryngeal penetration was seen with residuals. No definite aspiration identi fied. Please refer to the speech pathology report for further details. IMPRESSION: LARYNGEAL PENETRATION WITH RESIDUALS, HOWEVER NO DEFINITE ASPIRATION IDENTIFIED. PLEASE SEE SPEECH PATHOLOGIST REPORT FOR OTHER FINDINGS AND RECOMMENDATIONS. COMMENT: NONE Quality ID [id number]: Final reports for procedures using fluoroscopy that document radiation exposure kallie neha, or exposure time and number of fluorographic images (if radiation exposure indices are not avail able) TECHNICAL DOCUMENTATION: JOB ID: [id number] [employer]- All Rights Reserved Reading location - IP/workstation name: [email or web address] [id number]
[2019-10-28] MEDS: TAMSULOSIN HCL 0.4 MG CAP.SR.24H PO SCH (09:54)
[2019-10-28] MEDS: MEROPENEM 1 GM in NORMAL SALINE 50 ML IV SCH ×2 (09:55→21:09)
--- NOTE | 2019-10-28 10:32 | ST Inp Modified Barium Swallow ---
Medical Diagnosis - Medical Diagnoses Medical Diagnosis Description & ICD-10 Code(s): Hypotension, sepsis, acute kidney injury - ICD-10 Tx Diagnosis Coding (1) Dysphagia ICD-10 Code(s): R13.10 - DYSPHAGIA, UNSPECIFIED ST Inpatient MBS - General Date: 10/28/19 Date of Onset: 10/24/19 - History -: Medical - Patient is a 84 year old male presenting for modified barium swallow study. Per EMR, patient was admitted to the ED on 10/24/19 due to possible sepsis. Relevant diagnoses include history of hypertension and leukocytosis. Chest x-ray on 10/26/19 revealed "worsening bibasilar aeration with dense left lower lobe consolidation and progressive right lower lobe airspace disease and pleural fluid." Clinical beside swallow evaluation 10/27/19 revealed possible overt signs and symptoms of aspiration including wet gurgly voice and delayed cough on ice chips and thin liquids. MBSS ordered to instrumentally assess for oropharyngeal dysphagia. - Subjective Current Nutritional Means: NPO Current Symptoms: Coughing - On ice chips and single sips thin liquid, Wet/gurgly voice Pain: no signs/symptoms of pain - Objective Assessment: Upright, Left Lateral - Food Trials Food Trials Used: Thin liquids, Hissop thick liquids, Pureed, Regular The Patient: fed by ST - Assessment Labial Function: Within Functional Limits - Mild anterior spillage with straw Lingual Function: Within Functional Limits Mandibular Function: Within Functional Limits Dentition: Dentures-Upper, Dentures-Lower Laryngeal Function: Throat Clear - Pharyngeal Stage Initiation of Pharyngeal Stage: Delayed - in valleculae Decreased Laryngeal Elevation: Yes Reduced Velo-Pharyngeal Closure: no Reduced Pressure Generation: No Reduced Tongue Base Retraction: Yes Pre-Swallowing Pooling in Valleculae: None Pre-Swallowing Pooling in Pyriforms: None Reduced Thyro-Hyiod Approximation: Yes Reduced Epiglottic Excursion: No Reduced Pharyngeal Peristalsis: No Multiple Swallows With: Cleared w/ Liquid Assist Post Swallow Residuals in Valleculae: Mild Post Swallow Residuals in Pyriforms: Mild Post Swallow Residuals: tongue-base Pahryngeal Stage Comments: MBSS reveals mild oropharyngeal dysphagia (according to the dysphagia outcome severity scale) characterized by trace penetration above vocal folds. Not immediately ejected form airway. However, residuals cleared with multiple swallows or liquid wash. Swallow timing slightly delayed and reduced hyolaryngeal elevation, however, no residuals aspirated following initial swallow. Some difficulty chewing hard solids at time of study, resulting in significant oral reside. Recommending puree diet and thin liquids. - Impression/Summary Laryngeal Penetration: Yes, during swallow, after swallow - Trace penetration above vocal folds Tracheal Aspiration: no Effective Clearing: partial clearing Patient Presents With: Oral-Pharyngeal dysph. Risk of Aspiration: Mild Risk of Nutritional Compromise: Mild - Recommendations Solid Diet Recommendations: Pureed - Patient with reduced oral manipulation of hard bolus. Recommeding puree due to difficulty with mastication and significant oral residue with solids at time of study. Liquid Diet Recommendations: Thin Recommended Techniques: Fully Upright During Meal, Alternate Bites/Sips Supervision: requires assistance - Patient required some assistance with feeding during study - Time Total Time: 15 Total Timed Minutes: 15
--- NOTE | 2019-10-28 12:08 | PDOC CRITICAL CARE PROG REPORT ---
General Date:: 10/28/19 - Critical Care Attending Note Resuscitation Status: Full Code Events in the past 12 to 24 Hours:: Pt remains on levophed and neosynephrine. Passed his MBS. Reason for ICU Addmission:: septic shock, HCAP, cellulitis Physical Exam Vital Signs: Temp Pulse Resp BP Pulse Ox 96.1 F L 78 15 106/81 99 10/28/19 08:00 10/28/19 10:00 10/28/19 10:00 10/28/19 10:00 10/28/19 10:00 Intake & Output 10/27/19 10/28/19 10/29/19 06:59 06:59 06:59 Intake Total 2748 2072 58 Output Total 235 775 200 Balance 2513 1297 -142 Weight 113.2 kg 113.4 kg Weight/Height Weight 113.4 kg Height 6 ft General appearance: PRESENT: no acute distress, well-developed, well-nourished, other - jaundiced Respiratory exam: PRESENT: unlabored GI/Abdominal exam: PRESENT: soft, other - non-tender, non-distended Extremities exam: PRESENT: other - 3+ edema, legs bandaged Neurological exam: PRESENT: alert, awake Laboratory/Radiographs Laboratory Results: 10/28/19 04:00 10/28/19 04:00 10/27/19 10/28/19 10/28/19 03:45 04:00 04:00 WBC 23.5 H RBC 4.72 Hgb 10.8 L Hct 35.6 L MCV 75 L MCH 22.8 L MCHC 30.3 L RDW 24.7 H Plt Count 146 L Seg Neutrophils % Not Reportable Sodium 127.1 L Potassium 4.5 Chloride 92 L Carbon Dioxide 21 L Anion Gap 14 BUN 54 H Creatinine 2.11 H Est GFR ( Amer) 36 L Glucose 141 H Calcium 7.9 L Total Bilirubin 5.3 H AST 81 H Alkaline Phosphatase 96 Total Protein 5.4 L Albumin 2.7 L 10/27/19 08:49 Blood Blood Culture (PCR) - Final Staphylococcus Aureus 10/24/19 06:41 Blood Blood Culture (PCR) - Final Pseudomonas Aeruginosa 10/24/19 06:41 Blood Blood Culture - Final Pseudomonas Aeruginosa Staphylococcus Aureus 10/24/19 07:50 Blood Blood Culture (PCR) - Final Staphylococcus Aureus Pseudomonas Aeruginosa 10/24/19 07:50 Blood Blood Culture - Final Staphylococcus Aureus Pseudomonas Aeruginosa 10/24/19 07:58 Clean Catch Midstream Urine Culture - Final Staphylococcus Aureus Enterococcus Faecalis(Group D) 10/24/19 10/27/19 06:41 03:45 Creatine Kinase < 20 L Troponin I 0.406 Impressions: Ankle X-Ray 10/24/19 07:04 IMPRESSION: 1. Degenerative changes of the left ankle and midfoot. 2. Diffuse soft tissue swelling surrounding the left ankle. 3. No definite radiographic findings to suggest osteomyelitis. Foot X-Ray 10/24/19 07:05 IMPRESSION: 1. No definite acute osseous abnormality or definite findings to suggest acute osteomyelitis. 2. Degenerative changes of the midfoot and hindfoot. 3. Diffuse soft tissue swelling surrounding the left foot. There are questionable 1 cm soft tissue masses along the dorsal aspect of the left foot best appreciated on the lateral projection. Chest CT 10/26/19 00:00 IMPRESSION: CARDIOMEGALY. MODERATELY LARGE BILATERAL PLEURAL EFFUSIONS. BILATERAL LOWER LOBE AIRSPACE DISEASE MOST LIKELY DUE TO COMPRESSIVE ATELECTASIS. SUPERIMPOSED INFECTION MAY BE POSSIBLE. Lower Extremity CT 10/26/19 00:00 IMPRESSION: DIFFUSE SOFT TISSUE EDEMA WHICH COULD BE DUE TO CELLULITIS AND UNDERLYING SOFT TISSUE INFECTION. NO DISCRETE ABSCESS DEMONSTRATED. Modified Barium Swallow 10/28/19 00:00 IMPRESSION: LARYNGEAL PENETRATION WITH RESIDUALS, HOWEVER NO DEFINITE ASPIRATION IDENTIFIED. PLEASE SEE SPEECH PATHOLOGIST REPORT FOR OTHER FINDINGS AND RECOMMENDATIONS. Renal Ultrasound 10/28/19 00:00 IMPRESSION: 1. No urinary obstruction or suspicious mass. Other findings as above. Assessment and Plan - Diagnosis (1) Septic shock Is this a current diagnosis for this admission?: Yes (2) Cellulitis Is this a current diagnosis for this admission?: Yes (3) HCAP (healthcare-associated pneumonia) Is this a current diagnosis for this admission?: Yes (4) BEVERLY (acute kidney injury) Is this a current diagnosis for this admission?: Yes (5) Leg edema Is this a current diagnosis for this admission?: Yes (6) Afib Qualifiers: Atrial fibrillation type: unspecified Qualified Code(s): I48.91 - Unspecified atrial fibrillation Is this a current diagnosis for this admission?: Yes (7) Staphylococcus aureus bacteremia with sepsis Is this a current diagnosis for this admission?: Yes (8) Pseudomonas aeruginosa infection Is this a current diagnosis for this admission?: Yes (9) Hyperbilirubinemia Is this a current diagnosis for this admission?: Yes (10) Pleural effusion Is this a current diagnosis for this admission?: Yes Plan Summary: Assessment: Critically ill 84 yo man with septic shock, HCAP, cellulitis of lower extremities, afib, BEVERLY, vascular insufficiency, bacteremia due to staph and pseudomonas, pleural effusion, hyperbilirubinemia. Plan: 1. Respiratory: stable on nasal cannula 2. Pulmonary: HCAP. Aspiration PNA. ABX Day 5. On vanc and meropenem. Moderate bilateral pleural effusion. Pt needs thoracentesis. Eliquis stopped yesterday. Thoracentesis by radiology in next 1-2 days. 3. CV: hypotension due to septic shock. Afib with RVR. Continue amiodarone infusion, neosynephrine infusion, and levophed Echo done recently shows EF of 60% . Hold eliquis in anticipation for thoracentesis. 4. Renal: BEVERLY,worsening. Cr is 2.11. Marginal UOP. Renal US negative. Will c/s nephrology 5. Vascular: severe LE edema. arterial and venous dopplers are pending. Cellulitis with open sores. Wound care. 6. ID: septic shock, HCAP, LE cellultis, bacteremia due to MSSA and pseudomonas, UTI due to e.faecalis. ATBX Day 5. On Vanc and meropenem. WBC has decreased to 23.5. Will order CT of abdomen and pelvis to eval for abscesses 7. GI: hyperbilirubinemia. Unclear cause. Will check CT of abdomen. May need liver US. 8. Heme: Eliquis on hold for thoracentesis 8. Endocrine: accuchecks, SSI. On stress dose steroids. 9. Nutrition: Passed his MBS 10. Prophylaxis: DVT prophylaxis not needed b/c pt has been on eliquis 11. Daughter and son-in-law were at the bedside. I updated them on pt condition and plan of care. Critical care time= 35 min, excluding procedure Critical Time Critical Time (minutes): 35 Level of Care: ICU -: 1. The care of a critical patient is a dynamic process. This note is a ambulatory services representative synopsis but static in nature. The timeframe for treatments given in order is not necessarily the actual time these treatments may have been done. 2. This patient requires critical care secondary to ongoing requirements for therapy not offered or safe outside the critical care environment. Transfer to a lower level of care will result in altered life or limb morbidity and mortality. 3. Multidisciplinary rounds completed. 4. ABCDE bundle addressed.
[2019-10-28] MEDS: ALBUMIN HUMAN 12.5 GM/50 ML RTUINJ IV SCH ×3 (12:41→23:35)
[2019-10-28] MEDS: NORMAL SALINE 1000 ML 1,000 ML IV PRN (12:41)
--- NOTE | 2019-10-28 13:42 | PDOC CONSULTATION ---
Consultation Consult Date: 10/28/19 Provider Consulted: Tez CLARKE Consult reason:: BEVERLY in septic shock History of Present Illness Admission Date/PCP: 10/24/19 10:27 [facility] History of Present Illness: JUANY OLIVERA is a 84 year old male with an apparent past medical history of hypertension, atrial fibrillation and possible dementia was admitted with history of cellulitis of both his lower extremities with edema.Patient is quite lethargic when being examined in the ICU today and therefore chart review was done and discussions were done with the treating nurse. Evaluations in the ER revealed that he was in septic shock from his bilateral lower extremity cellulitis with a possible hint of pneumonia as well. Patient is currently in the ICU he is lethargic and poorly responsive to questions. He is on double pressors maxed out. He has been begun on IV antibiotics after cultures have grown multiple organisms which includes MSSA, Pseudomonas and enterococcus. Labs and medications were reviewed. Discussions were done with the treating nurse.Ultrasound done today does not show any obstructive uropathy. Past Medical History Cardiac Medical History: Reports: Atrial Fibrillation, Hypertension-primary, Myocardial Infarction Pulmonary Medical History: Denies: Asthma Neurological Medical History: Denies: Seizures GI Medical History: Denies: Hepatitis, Hiatal Hernia Past Surgical History Past Surgical History: Denies: Pacemaker Social History Smoking Status: Never Smoker Frequency of Alcohol Use: None Hx Recreational Drug Use: No Hx Prescription Drug Abuse: No - Advance Directive Resuscitation Status: Full Code Family History Parental Family History Reviewed: No Children Family History Reviewed: No Sibling(s) Family History Reviewed.: No Medication/Allergy Home Medications: Apixaban [Eliquis 2.5 mg Tablet] 2.5 mg PO BID 10/24/19 Atenolol [Tenormin] 25 mg PO BID 10/24/19 Furosemide [Lasix 20 mg Tablet] 20 mg PO QAM 10/24/19 Tamsulosin HCl [Flomax 0.4 mg Cap.sr] 0.4 mg PO DAILY 10/24/19 Allergies/Adverse Reactions: No Known Allergies Allergy (Verified 10/24/19 06:50) Review of Systems ROS unobtainable: Due to mental status Constitutional: PRESENT: anorexia, weakness. ABSENT: chills, fever(s), headache(s), night sweats Cardiovascular: PRESENT: edema. ABSENT: chest pain Physical Exam Vital Signs: Temp Pulse Resp BP Pulse Ox 95.9 F L 76 16 104/72 99 10/28/19 12:00 10/28/19 12:00 10/28/19 12:00 10/28/19 12:00 10/28/19 12:00 Intake & Output 10/27/19 10/28/19 10/29/19 06:59 06:59 06:59 Intake Total 2748 2072 322 Output Total 235 775 310 Balance 2513 1297 12 Weight 113.2 kg 113.4 kg General appearance: PRESENT: disheveled, hard of hearing, mild distress Eye exam: PRESENT: EOMI, PERRLA Ear exam: PRESENT: normal external ear exam Mouth exam: PRESENT: moist, neck supple Neck exam: ABSENT: lymphadenopathy, meningismus, tenderness, tracheal deviation Respiratory exam: PRESENT: clear to auscultation vasile, decreased breath sounds. ABSENT: crackles Cardiovascular exam: PRESENT: +S1, +S2 GI/Abdominal exam: PRESENT: normal bowel sounds, soft. ABSENT: organomegaly, tenderness Extremities exam: PRESENT: +1 edema Neurological exam: PRESENT: altered Psychiatric exam: PRESENT: depressed Skin exam: PRESENT: erythema - Of both lower extremities which are now covered i n bandages.. ABSENT: cyanosis, mottled Results Laboratory Results: 10/28/19 04:00 10/28/19 04:00 10/28/19 10/28/19 04:00 04:00 WBC 23.5 H RBC 4.72 Hgb 10.8 L Hct 35.6 L MCV 75 L MCH 22.8 L MCHC 30.3 L RDW 24.7 H Plt Count 146 L Seg Neutrophils % Not Reportable Sodium 127.1 L Potassium 4.5 Chloride 92 L Carbon Dioxide 21 L Anion Gap 14 BUN 54 H Creatinine 2.11 H Est GFR ( Amer) 36 L Glucose 141 H Calcium 7.9 L 10/27/19 08:49 Blood Blood Culture (PCR) - Final Staphylococcus Aureus 10/24/19 06:41 Blood Blood Culture (PCR) - Final Pseudomonas Aeruginosa 10/24/19 06:41 Blood Blood Culture - Final Pseudomonas Aeruginosa Staphylococcus Aureus 10/24/19 07:50 Blood Blood Culture (PCR) - Final Staphylococcus Aureus Pseudomonas Aeruginosa 10/24/19 07:50 Blood Blood Culture - Final Staphylococcus Aureus Pseudomonas Aeruginosa 10/24/19 10/27/19 06:41 03:45 Creatine Kinase < 20 L Troponin I 0.406 Impressions: Ankle X-Ray 10/24/19 07:04 IMPRESSION: 1. Degenerative changes of the left ankle and midfoot. 2. Diffuse soft tissue swelling surrounding the left ankle. 3. No definite radiographic findings to suggest osteomyelitis. Foot X-Ray 10/24/19 07:05 IMPRESSION: 1. No definite acute osseous abnormality or definite findings to suggest acute osteomyelitis. 2. Degenerative changes of the midfoot and hindfoot. 3. Diffuse soft tissue swelling surrounding the left foot. There are questionable 1 cm soft tissue masses along the dorsal aspect of the left foot best appreciated on the lateral projection. Chest CT 10/26/19 00:00 IMPRESSION: CARDIOMEGALY. MODERATELY LARGE BILATERAL PLEURAL EFFUSIONS. BILATERAL LOWER LOBE AIRSPACE DISEASE MOST LIKELY DUE TO COMPRESSIVE ATELECTAS IS. SUPERIMPOSED INFECTION MAY BE POSSIBLE. Lower Extremity CT 10/26/19 00:00 IMPRESSION: DIFFUSE SOFT TISSUE EDEMA WHICH COULD BE DUE TO CELLULITIS AND UNDERLYING SOFT TISSUE INFECTION. NO DISCRETE ABSCESS DEMONSTRATED. Modified Barium Swallow 10/28/19 00:00 IMPRESSION: LARYNGEAL PENETRATION WITH RESIDUALS, HOWEVER NO DEFINITE ASPIRA TION IDENTIFIED. PLEASE SEE SPEECH PATHOLOGIST REPORT FOR OTHER FINDINGS AND RECOMMENDATIONS. Renal Ultrasound 10/28/19 00:00 IMPRESSION: 1. No urinary obstruction or suspicious mass. Other findings as above. Assessment & Plan - Diagnosis (1) Septic shock Is this a current diagnosis for this admission?: Yes Plan: Patient is currently in septic shock with polymicrobial organisms stemming from bilateral cellulitis. Is being covered with antibiotics which includes Vanco/meropenem/. Has also got early features that might indicate DIC which needs to be monitored closely.Lactic acid is high. He is very critical with guarded prognosis. (2) Staphylococcus aureus bacteremia with sepsis Is this a current diagnosis for this admission?: Yes Plan: Blood culture earlier was positive for staph aureus/Pseudomonas. (3) Cellulitis Is this a current diagnosis for this admission?: Yes Plan: Bilateral lower extremities. 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 (4) BEVERLY (acute kidney injury) Is this a current diagnosis for this admission?: Yes Plan: His most latest creatinine from an early admission was 0.9. Currently is at 2.1. Nonoliguric ATN. Please dose medications for GFR of approximately 20-25 cc/min. Monitor Vanco very closely. Patient has got fluid overload/anasarca in his given situation as he is obviously is going to be third spacing given his overall situation and hypoalbuminemia. Renal ultrasound done today which does not show any evidences of obstructive uropathy. He has a indwelling Trivedi catheter. Start him with gentle conversion of fluids normal saline along with albumin. No acute indications for renal replacements currently. (5) Hyponatremia Plan: Current sodium 127. Monitor. See response to earlier measures instituted. (6) Afib Qualifiers: Atrial fibrillation type: unspecified Qualified Code(s): I48.91 - U nspecified atrial fibrillation Is this a current diagnosis for this admission?: Yes Plan: Currently rate controlled on IV amiodarone.
[2019-10-28] MEDS: FUROSEMIDE INJ/PF 20 MG/2 ML SDV IV SCH ×2 (14:14→21:09)
[2019-10-28] MEDS: VANCOMYCIN HCL 1,500 MG in DEXTROSE 5%-WATER 250 ML IV SCH (14:23)
--- NOTE | 2019-10-28 14:44 | RADIOLOGY REPORT (SQ) ---
EXAM DESCRIPTION: CT ABD/PELVIS NO ORAL OR IV COMPLETED DATE/TIME: 10/28/2019 2:08 pm REASON FOR STUDY: septic shock, bactermia, BEVERLY, eval for abscess COMPARISON: 10/26/2019 TECHNIQUE: CT scan of the abdomen and pelvis performed without intravenous contrast. Patient was gi jace oral contrast. Images reviewed with lung, soft tissue, and bone windows. Reconstructed coronal a nd sagittal MPR images reviewed. All images stored on PACS. All CT scanners at this facility use dose modulation, iterative reconstruction, and/or weight based d osing when appropriate to reduce radiation dose to as low as reasonably achievable (ALARA). [facility]: Dose Right [facility]: CareDose [facility]: Dose Right [facility]: Teradose 4D [facility]: Smart Technologies RADIATION DOSE: CT Rad equipment meets quality standard of care and radiation dose reduction techniq ues were employed. CTDIvol: 34.8 mGy. DLP: 2085 mGy-cm.mGy. LIMITATIONS: None. FINDINGS: LOWER CHEST: Mild mA bilateral pleural effusions, right greater than left with associated basilar consolidation, likely atelectasis. Coronary atherosclerosis. Enlarged heart. NON-CONTRASTED LIVER, SPLEEN, ADRENALS: Evaluation limited by lack of IV contrast. No identified sign ificant masses. PANCREAS: No masses. No peripancreatic inflammatory changes. GALLBLADDER: Absent versus nondistended. RIGHT KIDNEY AND URETER: No suspicious masses. Assessment limited by lack of IV contrast. No signif icant calcifications. No hydronephrosis or hydroureter. LEFT KIDNEY AND URETER: Assessment limited by lack of intravenous contrast. Intermediate density 4.2 cm lesion within the renal pelvis, possibly proteinaceous cyst although technically indeterminate. Findings similar to exam dated 06/06/2013 No significant calcifications. No hydronephrosis or hydrour eter. AORTA AND RETROPERITONEUM: Aortoiliac atherosclerosis without aneurysm. No retroperitoneal mass, hem orrhage or adenopathy. BOWEL AND PERITONEAL CAVITY: No evidence of intestinal obstruction. No focal bowel wall thickening. Multiple colonic diverticula. Small volume ascites. APPENDIX: Normal. PELVIS, BLADDER, AND ABDOMINAL WALL:Decompressed urinary bladder with intraluminal Trivedi catheter. A nasarca. No mass. No hernia. BONES: No acute bony abnormality. Lower lumbar facet arthropathy and spondylosis. No suspicious oss eous lesions. OTHER: No other significant finding. IMPRESSION: 1. Qgzx-[id number] bilateral effusions, right greater than left, with associated basil ar atelectasis. 2. Small volume ascites with anasarca. No evidence of focal drainable abscess or other acute intra -abdominal/pelvic process. 3. Colonic diverticulosis. 4. Indeterminate density 4.2 cm renal lesion, likely proteinaceous cyst. COMMENT: Quality ID # [id number]: Final reports with documentation of one or more dose reduction techniques (e.g., Automated exposure control, adjustment of the mA and/or kV according to patient size, use of iterative reconstruction technique) TECHNICAL DOCUMENTATION: JOB ID: [id number] [employer]- All Rights Reserved Reading location - IP/workstation name: [email or web address]
[2019-10-29] MEDS: DEXTROSE 5%-WATER 250 ML with PHENYLEPHRINE HCL 40 MG IV PRN ×10 (01:29→21:56)
[2019-10-29 03:56] LABS: INTERNATIONAL RATION (INR) 2.49; PROTHROMBIN TIME 27.4 SEC (11.4-15.4)
[2019-10-29 04:10] LABS: ALBUMIN 2.9 g/dL (3.5-5.0); ALKALINE PHOSPHATASE 94 U/L (38-126); ANION GAP 15 (5-19); ASPARTATE AMINO TRANSFERASE 140 U/L (17-59); BILIRUBIN,DIRECT 7.1 mg/dL (0.0-0.4); BLOOD UREA NITROGEN 52 mg/dL (7-20); CALCIUM 8.3 mg/dL (8.4-10.2); CARBON DIOXIDE 23 mmol/L (22-30); CHLORIDE 90 mmol/L (98-107); GLUCOSE 144 mg/dL (75-110); TOTAL PROTEIN 5.9 g/dL (6.3-8.2)
[2019-10-29 04:28] LABS: HEMATOCRIT 33.3 % (37.9-51.0); HEMOGLOBIN 10.1 g/dL (13.5-17.0); MEAN CORPUSCULAR HEMOGLOBIN 22.7 pg (27.0-33.4); MEAN CORPUSCULAR HGB CONC 30.4 g/dL (32.0-36.0); MEAN CORPUSCULAR VOLUME 75 fl (80-97); PLATELET COUNT 130 10^3/uL (150-450); RED BLOOD COUNT 4.47 10^6/uL (4.35-5.55); RED CELL DISTRIBUTION WIDTH 23.9 % (11.5-14.0); WHITE BLOOD COUNT 20.8 10^3/uL (4.0-10.5)
[2019-10-29] MEDS: ALBUMIN HUMAN 12.5 GM/50 ML RTUINJ IV SCH ×4 (05:08→21:39)
[2019-10-29] MEDS: HYDROCORTISONE SOD SUCCINATE INJ/PF 100 MG/2 ML SDV IV SCH ×3 (05:08→21:39)
[2019-10-29] MEDS: PANTOPRAZOLE SODIUM 20 MG TABLET.DR PO SCH (05:10)
[2019-10-29] MEDS: INSULIN REG, HUMAN 100 UNIT/ML 3 ML VIAL (PYX) SUBCUT SCH ×3 (05:17→17:22)
[2019-10-29 06:13] LABS: BASOPHILS % (MANUAL) 0 % (0-2); EOSINOPHILS % (MANUAL) 0 % (0-6); MONOCYTES % (MANUAL) 5 % (3-13); NUCLEATED RED BLOOD CELLS 4 /100 WBC (0); SEGMENTED NEUTROPHILS % (MAN) 80 % (42-78); TOTAL CELLS COUNTED 100
[2019-10-29 06:14] LABS: ANISOCYTOSIS 3+; HYPOCHROMASIA 1+; OVALOCYTES SLIGHT; PLATELET COMMENT DECREASED; POIKILOCYTOSIS SLIGHT; POLYCHROMASIA SLIGHT; TARGET CELLS SLIGHT; TOXIC GRANULATION 1+
[2019-10-29 06:20] LABS: ABSOLUTE LYMPHOCYTES# (MANUAL) 1.7 10^3/uL (0.5-4.7); LYMPHOCYTES % (MANUAL) 8 % (13-45); METAMYELOCYTES % (MANUAL) 3 % (0-1); MYELOCYTES % (MANUAL) 2 % (0); PROMYELOCYTES % (MANUAL) 2 % (0)
[2019-10-29] MEDS: NORMAL SALINE 1000 ML 1,000 ML IV PRN (09:00)
--- NOTE | 2019-10-29 09:21 | RADIOLOGY REPORT (SQ) ---
EXAM DESCRIPTION: CHEST SINGLE VIEW COMPLETED DATE/TIME: 10/29/2019 6:29 am REASON FOR STUDY: PNA COMPARISON: 10/26/2019. EXAM PARAMETERS: NUMBER OF VIEWS: One view. TECHNIQUE: Single frontal radiographic view of the chest acquired. RADIATION DOSE: NA LIMITATIONS: None. FINDINGS: LUNGS AND PLEURA: Bilateral airspace disease and pleural effusions, unchanged. MEDIASTINUM AND HILAR STRUCTURES: No masses. Contour normal. HEART AND VASCULAR STRUCTURES: Cardiomegaly unchanged. BONES: No acute findings. Degenerative changes in the spine and left shoulder. HARDWARE: Central venous catheter. Surgical clips in the soft tissues of the neck. OTHER: No other significant finding. IMPRESSION: NO SIGNIFICANT CHANGE. TECHNICAL DOCUMENTATION: JOB ID: [id number] [employer]- All Rights Reserved Reading location - IP/workstation name: [email or web address]
[2019-10-29] MEDS: MEROPENEM 1 GM in NORMAL SALINE 50 ML IV SCH ×2 (11:10→21:39)
[2019-10-29] MEDS: FUROSEMIDE INJ/PF 20 MG/2 ML SDV IV SCH ×2 (11:14→21:39)
[2019-10-29] MEDS: TAMSULOSIN HCL 0.4 MG CAP.SR.24H PO SCH (11:15)
--- NOTE | 2019-10-29 12:32 | PDOC PROGRESS REPORT ---
Subjective Progress Note for:: 10/29/19 Reason For Visit: Patient seen in the ICU today. He is more awake and responsive to questions. He has his and daughter at the bedside who is feeding him and he seems to be enjoying the food and attention. He is being weaned off the pressors. Blood pressures are more stable. Labs and medications were reviewed with the patient and his family. Renal numbers are holding. He is making good amounts of urine output.Denies any history of chest pains, fever or chills. Physical Exam Vital Signs: Temp Pulse Resp BP Pulse Ox 97.3 F 88 27 H 108/66 99 10/29/19 08:00 10/29/19 10:00 10/29/19 11:28 10/29/19 11:28 10/29/19 11:28 Intake & Output 10/28/19 10/29/19 10/30/19 06:59 06:59 06:59 Intake Total 2322 1822 1350 Output Total 775 2245 950 Balance 1547 -423 400 Weight 113.4 kg 117.5 kg General appearance: PRESENT: no acute distress Respiratory exam: PRESENT: clear to auscultation vasile, decreased breath sounds. ABSENT: crackles Cardiovascular exam: PRESENT: +S1, +S2 GI/Abdominal exam: PRESENT: normal bowel sounds, soft. ABSENT: organomegaly, tenderness Extremities exam: PRESENT: pedal edema Neurological exam: PRESENT: alert, awake, oriented to person Psychiatric exam: PRESENT: appropriate affect Results Laboratory Results: 10/29/19 03:42 10/29/19 03:42 10/29/19 10/29/19 03:42 03:42 WBC 20.8 H RBC 4.47 Hgb 10.1 L Hct 33.3 L MCV 75 L MCH 22.7 L MCHC 30.4 L RDW 23.9 H Plt Count 130 L Seg Neutrophils % Not Reportable Sodium 127.7 L Potassium 4.0 Chloride 90 L Carbon Dioxide 23 Anion Gap 15 BUN 52 H Creatinine 2.10 H Est GFR ( Amer) 36 L Glucose 144 H Calcium 8.3 L Total Bilirubin 9.0 H AST 140 H Alkaline Phosphatase 94 Total Protein 5.9 L Albumin 2.9 L 10/27/19 08:49 Blood Blood Culture (PCR) - Final Staphylococcus Aureus 10/27/19 08:40 Blood Blood Culture (PCR) - Final Staphylococcus Aureus 10/24/19 10/27/19 06:41 03:45 Creatine Kinase < 20 L Troponin I 0.406 Impressions: Ankle X-Ray 10/24/19 07:04 IMPRESSION: 1. Degenerative changes of the left ankle and midfoot. 2. Diffuse soft tissue swelling surrounding the left ankle. 3. No definite radiographic findings to suggest osteomyelitis. Foot X-Ray 10/24/19 07:05 IMPRESSION: 1. No definite acute osseous abnormality or definite findings to suggest acute osteomyelitis. 2. Degenerative changes of the midfoot and hindfoot. 3. Diffuse soft tissue swelling surrounding the left foot. There are questionable 1 cm soft tissue masses along the dorsal aspect of the left foot best appreciated on the lateral projection. Chest CT 10/26/19 00:00 IMPRESSION: CARDIOMEGALY. MODERATELY LARGE BILATERAL PLEURAL EFFUSIONS. BILATERAL LOWER LOBE AIRSPACE DISEASE MOST LIKELY DUE TO COMPRESSIVE ATELECTASIS. SUPERIMPOSED INFECTION MAY BE POSSIBLE. Lower Extremity CT 10/26/19 00:00 IMPRESSION: DIFFUSE SOFT TISSUE EDEMA WHICH COULD BE DUE TO CELLULITIS AND UNDERLYING SOFT TISSUE INFECTION. NO DISCRETE ABSCESS DEMONSTRATED. Abdomen/Pelvis CT 10/28/19 00:00 IMPRESSION: 1. Oohj-og-oeqmdtsv bilateral effusions, right greater than left, with associated basilar atelectasis. 2. Small volume ascites with anasarca. No evidence of focal drainable abscess or other acute intra-abdominal/pelvic process. 3. Colonic diverticulosis. 4. Indeterminate density 4.2 cm renal lesion, likely proteinaceous cyst. Modified Barium Swallow 10/28/19 00:00 IMPRESSION: LARYNGEAL PENETRATION WITH RESIDUALS, HOWEVER NO DEFINITE ASPIRATION IDENTIFIED. PLEASE SEE SPEECH PATHOLOGIST REPORT FOR OTHER FINDINGS AND RECOMMENDATIONS. Renal Ultrasound 10/28/19 00:00 IMPRESSION: 1. No urinary obstruction or suspicious mass. Other findings as above. Chest X-Ray 10/29/19 06:00 IMPRESSION: NO SIGNIFICANT CHANGE. Assessment & Plan - Diagnosis (1) Septic shock Is this a current diagnosis for this admission?: Yes Plan: Improving and is being weaned off of pressors. Platelets are still dropping slightly up but INR is improving indicative of improving DIC. Continue lines including fluids and albumin. Discussed with fuselage framer. (2) Staphylococcus aureus bacteremia with sepsis Is this a current diagnosis for this admission?: Yes Plan: Appropriate antibiotics. Monitor drug levels and dose to a GFR of approximately less than 20 to 25 cc/min. (3) Cellulitis Is this a current diagnosis for this admission?: Yes Plan: IV antibiotics. (4) BEVERLY (acute kidney injury) Is this a current diagnosis for this admission?: Yes Plan: Nonoliguric. Continue present guidelines. Caution with nephrotoxic drugs. (5) Hyponatremia Plan: Sodium stable at 127. Continue current guidelines. (6) Afib Qualifiers: Atrial fibrillation type: unspecified Qualified Code(s): I48.91 - Unspecified atrial fibrillation Is this a current diagnosis for this admission?: Yes Plan: Rate controlled on IV amiodarone. As per fuselage framer.
--- NOTE | 2019-10-29 14:48 | PDOC CRITICAL CARE PROG REPORT ---
General Date:: 10/29/19 ICU Day:: 6 Hospital Day:: 27 Resuscitation Status: Full Code Events in the past 12 to 24 Hours:: Urine output improved but overall status still poor. Review of systems relevant to events:: Neuro, renal, ID, CV Reason for ICU Addmission:: septic shock, HCAP, cellulitis, need for pressors. - Medications: Medications reviewed and adjusted accordingly: Yes Vasopressors:: Phenylephrine, kevophed. Sedation:: None Physical Exam Vital Signs: Temp Pulse Resp BP Pulse Ox 97.9 F 88 24 H 95/66 L 97 10/29/19 12:00 10/29/19 12:00 10/29/19 12:00 10/29/19 12:00 10/29/19 12:00 Intake & Output 10/28/19 10/29/19 10/30/19 06:59 06:59 06:59 Intake Total 2322 1822 1350 Output Total 775 2245 1325 Balance 1547 -423 25 Weight 113.4 kg 117.5 kg Weight/Height Weight 117.5 kg Height 6 ft General appearance: PRESENT: no acute distress, cooperative, hard of hearing Head exam: PRESENT: atraumatic, normocephalic Eye exam: PRESENT: conjunctiva pink, EOMI, PERRLA. ABSENT: scleral icterus Ear exam: PRESENT: normal external ear exam Mouth exam: PRESENT: dry mucosa Respiratory exam: PRESENT: clear to auscultation vasile. ABSENT: rales, rhonchi, wheezes Cardiovascular exam: PRESENT: RRR. ABSENT: diastolic murmur, rubs, systolic murmur GI/Abdominal exam: PRESENT: normal bowel sounds, soft. ABSENT: distended, guarding, mass, organolmegaly, rebound, tenderness Rectal exam: PRESENT: deferred Gentrourinary exam: PRESENT: indwelling catheter Extremities exam: PRESENT: other - 3-4 plus edema Musculoskeletal exam: PRESENT: tenderness Neurological exam: PRESENT: altered, oriented to person Laboratory/Radiographs Laboratory Results: 10/29/19 03:42 10/29/19 03:42 10/29/19 10/29/19 03:42 03:42 WBC 20.8 H RBC 4.47 Hgb 10.1 L Hct 33.3 L MCV 75 L MCH 22.7 L MCHC 30.4 L RDW 23.9 H Plt Count 130 L Seg Neutrophils % Not Reportable Sodium 127.7 L Potassium 4.0 Chloride 90 L Carbon Dioxide 23 Anion Gap 15 BUN 52 H Creatinine 2.10 H Est GFR ( Amer) 36 L Glucose 144 H Calcium 8.3 L Total Bilirubin 9.0 H AST 140 H Alkaline Phosphatase 94 Total Protein 5.9 L Albumin 2.9 L 10/27/19 08:49 Blood Blood Culture (PCR) - Final Staphylococcus Aureus 10/27/19 08:40 Blood Blood Culture (PCR) - Final Staphylococcus Aureus 10/24/19 10/27/19 06:41 03:45 Creatine Kinase < 20 L Troponin I 0.406 Impressions: Ankle X-Ray 10/24/19 07:04 IMPRESSION: 1. Degenerative changes of the left ankle and midfoot. 2. Diffuse soft tissue swelling surrounding the left ankle. 3. No definite radiographic findings to suggest osteomyelitis. Foot X-Ray 10/24/19 07:05 IMPRESSION: 1. No definite acute osseous abnormality or definite findings to suggest acute osteomyelitis. 2. Degenerative changes of the midfoot and hindfoot. 3. Diffuse soft tissue swelling surrounding the left foot. There are questionable 1 cm soft tissue masses along the dorsal aspect of the left foot best appreciated on the lateral projection. Chest CT 10/26/19 00:00 IMPRESSION: CARDIOMEGALY. MODERATELY LARGE BILATERAL PLEURAL EFFUSIONS. BILATERAL LOWER LOBE AIRSPACE DISEASE MOST LIKELY DUE TO COMPRESSIVE ATELECTASIS. SUPERIMPOSED INFECTION MAY BE POSSIBLE. Lower Extremity CT 10/26/19 00:00 IMPRESSION: DIFFUSE SOFT TISSUE EDEMA WHICH COULD BE DUE TO CELLULITIS AND UNDERLYING SOFT TISSUE INFECTION. NO DISCRETE ABSCESS DEMONSTRATED. Abdomen/Pelvis CT 10/28/19 00:00 IMPRESSION: 1. Mzcz-yj-nxgczzww bilateral effusions, right greater than left, with associated basilar atelectasis. 2. Small volume ascites with anasarca. No evidence of focal drainable abscess or other acute intra-abdominal/pelvic process. 3. Colonic diverticulosis. 4. Indeterminate density 4.2 cm renal lesion, likely proteinaceous cyst. Modified Barium Swallow 10/28/19 00:00 IMPRESSION: LARYNGEAL PENETRATION WITH RESIDUALS, HOWEVER NO DEFINITE ASPIRATION IDENTIFIED. PLEASE SEE SPEECH PATHOLOGIST REPORT FOR OTHER FINDINGS AND RECOMMENDATIONS. Renal Ultrasound 10/28/19 00:00 IMPRESSION: 1. No urinary obstruction or suspicious mass. Other findings as above. Chest X-Ray 10/29/19 06:00 IMPRESSION: NO SIGNIFICANT CHANGE. All labs, radiographs, diagnostic studies and EKGs were personally reviewed: Yes In addition, reports of radiographic and diagnostic studies were read: Yes Assessment and Plan - Diagnosis (1) Delirium Is this a current diagnosis for this admission?: Yes Plan: Advanced age, infection, prolonged immobilization, hospitalization in ICU all put him at risk. [place] to sleep-wake cycle, mobilize as possible, get out of ICU when able. (2) Afib Qualifiers: Atrial fibrillation type: unspecified Qualified Code(s): I48.91 - Unspecified atrial fibrillation Is this a current diagnosis for this admission?: Yes Plan: Controlled, continue current plan (3) HCAP (healthcare-associated pneumonia) Is this a current diagnosis for this admission?: Yes Plan: Seems resolved. CXR markedly improved. Possible aspiration. (4) Hyperbilirubinemia Is this a current diagnosis for this admission?: Yes Plan: Up to 9.0 but LFTs not elevated. Alkaline phosphatase normal. Not jaundiced. If still elevated tomorrow, U/S of liver. (5) Hyponatremia Is this a current diagnosis for this admission?: Yes Plan: Still somewhat low at 127. (6) Pseudomonas aeruginosa infection Is this a current diagnosis for this admission?: Yes Plan: Continue antibiotics. (7) Septic shock Is this a current diagnosis for this admission?: Yes Plan: Still showing sings of shock even on antibiotics and pressors. (8) Staphylococcus aureus bacteremia with sepsis Is this a current diagnosis for this admission?: Yes Plan: Antibiotics. (9) BEVERLY (acute kidney injury) Is this a current diagnosis for this admission?: Yes Plan: Elevated Cr and decreased GFR. Now off vancomycin. Need to discontinue levophed and phenylephrine Critical Time Critical Time (minutes): 40 Level of Care: ICU Anticipated discharge: SNF Within: Other - Too soon to speculate. -: 1. The care of a critical patient is a dynamic process. This note is a account executive sales representative synopsis but static in nature. The timeframe for treatments given in order is not necessarily the actual time these treatments may have been done. 2. This patient requires critical care secondary to ongoing requirements for therapy not offered or safe outside the critical care environment. Transfer to a lower level of care will result in altered life or limb morbidity and mortality. 3. Multidisciplinary rounds completed. 4. ABCDE bundle addressed.
[2019-10-29] MEDS: LINEZOLID 600 MG/300 ML RTUPB IV SCH (21:39)
[2019-10-30] MEDS: INSULIN REG, HUMAN 100 UNIT/ML 3 ML VIAL (PYX) SUBCUT SCH ×5 (00:30→23:41)
[2019-10-30] MEDS: ALBUMIN HUMAN 12.5 GM/50 ML RTUINJ IV SCH ×3 (04:03→16:19)
[2019-10-30 04:09] LABS: HEMATOCRIT 31.6 % (37.9-51.0); HEMOGLOBIN 9.8 g/dL (13.5-17.0); MEAN CORPUSCULAR HEMOGLOBIN 22.8 pg (27.0-33.4); MEAN CORPUSCULAR VOLUME 73 fl (80-97); PLATELET COUNT 115 10^3/uL (150-450); RED BLOOD COUNT 4.31 10^6/uL (4.35-5.55); RED CELL DISTRIBUTION WIDTH 24.2 % (11.5-14.0); WHITE BLOOD COUNT 13.6 10^3/uL (4.0-10.5)
[2019-10-30 04:23] LABS: ANION GAP 16 (5-19); BLOOD UREA NITROGEN 52 mg/dL (7-20); CALCIUM 8.3 mg/dL (8.4-10.2); CARBON DIOXIDE 24 mmol/L (22-30); CHLORIDE 93 mmol/L (98-107); GLUCOSE 144 mg/dL (75-110); POTASSIUM 3.3 mmol/L (3.6-5.0)
[2019-10-30 04:24] LABS: SEGMENTED NEUTROPHILS % (MAN) 74 % (42-78); TOTAL CELLS COUNTED 100
[2019-10-30 04:25] LABS: ABSOLUTE LYMPHOCYTES# (MANUAL) 0.5 10^3/uL (0.5-4.7); ABSOLUTE MONOCYTES # (MANUAL) 1.1 10^3/uL (0.1-1.4); BASOPHILS % (MANUAL) 0 % (0-2); EOSINOPHILS % (MANUAL) 0 % (0-6); LYMPHOCYTES % (MANUAL) 4 % (13-45); METAMYELOCYTES % (MANUAL) 2 % (0-1); MYELOCYTES % (MANUAL) 1 % (0); NUCLEATED RED BLOOD CELLS 3 /100 WBC (0)
[2019-10-30 04:26] LABS: PLATELET COMMENT DECREASED; TARGET CELLS SLIGHT; TOXIC GRANULATION SLIGHT; TOXIC VACUOLATION PRESENT
[2019-10-30 04:27] LABS: ANISOCYTOSIS 3+; HYPOCHROMASIA 1+; POIKILOCYTOSIS SLIGHT; POLYCHROMASIA SLIGHT
[2019-10-30 04:29] LABS: BAND NEUTROPHILS % (MANUAL) 10 % (3-5); MONOCYTES % (MANUAL) 9 % (3-13)
[2019-10-30] MEDS: HYDROCORTISONE SOD SUCCINATE INJ/PF 100 MG/2 ML SDV IV SCH ×3 (05:07→21:29)
[2019-10-30] MEDS: PANTOPRAZOLE SODIUM 20 MG TABLET.DR PO SCH (05:07)
[2019-10-30] MEDS: DEXTROSE 5%-WATER 250 ML with PHENYLEPHRINE HCL 40 MG IV PRN ×2 (07:27)
[2019-10-30] MEDS: TAMSULOSIN HCL 0.4 MG CAP.SR.24H PO SCH (10:44)
[2019-10-30] MEDS: FUROSEMIDE INJ/PF 20 MG/2 ML SDV IV SCH ×2 (10:46→21:28)
[2019-10-30] MEDS: MEROPENEM 1 GM in NORMAL SALINE 50 ML IV SCH ×2 (10:47→21:28)
[2019-10-30] MEDS: LINEZOLID 600 MG/300 ML RTUPB IV SCH ×2 (10:47→21:28)
[2019-10-30] MEDS: MIDODRINE HCL 5 MG TABLET PO SCH ×2 (16:20→18:07)
--- NOTE | 2019-10-30 16:34 | PDOC CRITICAL CARE PROG REPORT ---
General Date:: 10/30/19 ICU Day:: 7 Hospital Day:: 7 Resuscitation Status: Full Code Events in the past 12 to 24 Hours:: Renal function improved. Off pressors Review of systems relevant to events:: CV, ID Reason for ICU Addmission:: septic shock, HCAP, cellulitis, need for pressors. - Medications: Medications reviewed and adjusted accordingly: Yes Vasopressors:: None Sedation:: None Physical Exam Vital Signs: Temp Pulse Resp BP Pulse Ox 98.6 F 98 25 H 112/78 97 10/30/19 16:00 10/30/19 16:00 10/30/19 16:03 10/30/19 16:03 10/30/19 16:03 Intake & Output 10/29/19 10/30/19 10/31/19 06:59 06:59 06:59 Intake Total 1822 2550 67 Output Total 2245 4425 940 Balance -423 -1875 -873 Weight 117.5 kg 114.7 kg 114.7 kg Weight/Height Weight 114.7 kg Height 6 ft General appearance: PRESENT: no acute distress, cooperative Head exam: PRESENT: atraumatic, normocephalic Eye exam: PRESENT: conjunctiva pink, EOMI, PERRLA. ABSENT: scleral icterus Ear exam: PRESENT: normal external ear exam Mouth exam: PRESENT: moist, tongue midline Respiratory exam: PRESENT: clear to auscultation vasile, decreased breath sounds. ABSENT: rales, rhonchi, wheezes Cardiovascular exam: PRESENT: RRR. ABSENT: diastolic murmur, rubs, systolic murmur GI/Abdominal exam: PRESENT: normal bowel sounds, soft. ABSENT: distended, guarding, mass, organolmegaly, rebound, tenderness Rectal exam: PRESENT: deferred Gentrourinary exam: PRESENT: indwelling catheter Extremities exam: PRESENT: other - Edema less. Wounds are clean. R lower leg nearly healed. L more extensive but clean. No need for debridement. Neurological exam: PRESENT: alert, awake, oriented to person Laboratory/Radiographs Laboratory Results: 10/30/19 03:54 10/30/19 03:54 10/30/19 10/30/19 03:54 03:54 WBC 13.6 H RBC 4.31 L Hgb 9.8 L Hct 31.6 L MCV 73 L MCH 22.8 L MCHC 31.0 L RDW 24.2 H Plt Count 115 L Seg Neutrophils % Not Reportable Sodium 132.6 L Potassium 3.3 L Chloride 93 L Carbon Dioxide 24 Anion Gap 16 BUN 52 H Creatinine 1.89 H Est GFR ( Amer) 41 L Glucose 144 H Calcium 8.3 L 10/27/19 08:40 Blood Blood Culture (PCR) - Final Staphylococcus Aureus 10/27/19 08:40 Blood Blood Culture - Final Staphylococcus Aureus 10/27/19 08:49 Blood Blood Culture (PCR) - Final Staphylococcus Aureus 10/27/19 08:49 Blood Blood Culture - Final Staphylococcus Aureus 10/27/19 13:50 Leg - Lower Gram Stain - Final 10/27/19 13:50 Leg - Lower Wound Culture - Final Stenotrophomonas Maltophilia Staphylococcus Aureus Group B Beta Streptococcus Pseudomonas Aeruginosa 10/24/19 10/27/19 06:41 03:45 Creatine Kinase < 20 L Troponin I 0.406 Impressions: Ankle X-Ray 10/24/19 07:04 IMPRESSION: 1. Degenerative changes of the left ankle and midfoot. 2. Diffuse soft tissue swelling surrounding the left ankle. 3. No definite radiographic findings to suggest osteomyelitis. Foot X-Ray 10/24/19 07:05 IMPRESSION: 1. No definite acute osseous abnormality or definite findings to suggest acute osteomyelitis. 2. Degenerative changes of the midfoot and hindfoot. 3. Diffuse soft tissue swelling surrounding the left foot. There are questionable 1 cm soft tissue masses along the dorsal aspect of the left foot best appreciated on the lateral projection. Chest CT 10/26/19 00:00 IMPRESSION: CARDIOMEGALY. MODERATELY LARGE BILATERAL PLEURAL EFFUSIONS. BILATERAL LOWER LOBE AIRSPACE DISEASE MOST LIKELY DUE TO COMPRESSIVE ATELECTASIS. SUPERIMPOSED INFECTION MAY BE POSSIBLE. Lower Extremity CT 10/26/19 00:00 IMPRESSION: DIFFUSE SOFT TISSUE EDEMA WHICH COULD BE DUE TO CELLULITIS AND UNDERLYING SOFT TISSUE INFECTION. NO DISCRETE ABSCESS DEMONSTRATED. Abdomen/Pelvis CT 10/28/19 00:00 IMPRESSION: 1. Pjed-[id number] bilateral effusions, right greater than left, with associated basilar atelectasis. 2. Small volume ascites with anasarca. No evidence of focal drainable abscess or other acute intra-abdominal/pelvic process. 3. Colonic diverticulosis. 4. Indeterminate density 4.2 cm renal lesion, likely proteinaceous cyst. Modified Barium Swallow 10/28/19 00:00 IMPRESSION: LARYNGEAL PENETRATION WITH RESIDUALS, HOWEVER NO DEFINITE ASP IRATION IDENTIFIED. PLEASE SEE SPEECH PATHOLOGIST REPORT FOR OTHER FINDINGS AND RECOMMENDATIONS. Renal Ultrasound 10/28/19 00:00 IMPRESSION: 1. No urinary obstruction or suspicious mass. Other findings as above. Chest X-Ray 10/29/19 06:00 IMPRESSION: NO SIGNIFICANT CHANGE. All labs, radiographs, diagnostic studies and EKGs were personally reviewed: Yes In addition, reports of radiographic and diagnostic studies were read: Yes Assessment and Plan - Diagnosis (1) Delirium Is this a current diagnosis for this admission?: Yes Plan: Much improved. Seems well oriented to person and place. More talkative. (2) Afib Qualifiers: Atrial fibrillation type: unspecified Qualified Code(s): I48.91 - Unspecified atrial fibrillation Is this a current diagnosis for this admission?: Yes Plan: Controlled. (3) HCAP (healthcare-associated pneumonia) Is this a current diagnosis for this admission?: Yes Plan: Lungs clear and respiratory status stable. (4) Hyperbilirubinemia Is this a current diagnosis for this admission?: Yes (5) Hyponatremia Is this a current diagnosis for this admission?: Yes Plan: Not jaundiced. Likely related to infection. (6) Pseudomonas aeruginosa infection Is this a current diagnosis for this admission?: Yes Plan: Continue antibiotics. Legs look clean. (7) Septic shock Is this a current diagnosis for this admission?: Yes Plan: Resolved. Off pressors. (8) Staphylococcus aureus bacteremia with sepsis Is this a current diagnosis for this admission?: Yes Plan: Continue antibiotics. (9) BEVERLY (acute kidney injury) Is this a current diagnosis for this admission?: Yes Plan: Improved. Critical Time Critical Time (minutes): 40 Level of Care: ICU Anticipated discharge: SNF Within: Other - Too soon too tell. -: 1. The care of a critical patient is a dynamic process. This note is a assisted sales representative synopsis but static in nature. The timeframe for treatments given in order is not necessarily the actual time these treatments may have been done. 2. This patient requires critical care secondary to ongoing requirements for therapy not offered or safe outside the critical care environment. Transfer to a lower level of care will result in altered life or limb morbidity and mortality. 3. Multidisciplinary rounds completed. 4. ABCDE bundle addressed.
--- NOTE | 2019-10-30 16:41 | PDOC PROGRESS REPORT ---
Subjective Progress Note for:: 10/30/19 Reason For Visit: Patient continues to improve. He is seen in the ICU today surrounded by his and daughter. I discussed earlier with the nurse who is happy with the progress he is making. He is seems to be eating more. He is more awake and alert and responsive. He is making good amounts of urine. Blood pressure is still on the on the lower of the normal range as he is being weaned off the pressors. Labs and medications reviewed with him shows that his renal numbers are stable. Physical Exam Vital Signs: Temp Pulse Resp BP Pulse Ox 98.6 F 98 25 H 112/78 97 10/30/19 16:00 10/30/19 16:00 10/30/19 16:03 10/30/19 16:03 10/30/19 16:03 Intake & Output 10/29/19 10/30/19 10/31/19 06:59 06:59 06:59 Intake Total 1822 2550 67 Output Total 2246 4497 940 Balance -263 -0009 -693 Weight 117.5 kg 114.7 kg 114.7 kg General appearance: PRESENT: no acute distress Respiratory exam: PRESENT: clear to auscultation vasile, decreased breath sounds. ABSENT: crackles Cardiovascular exam: PRESENT: +S1, +S2 GI/Abdominal exam: PRESENT: normal bowel sounds, soft. ABSENT: organomegaly, tenderness Extremities exam: PRESENT: +1 edema Neurological exam: PRESENT: alert, awake, oriented to person Psychiatric exam: PRESENT: appropriate affect Skin exam: PRESENT: skin tears - /Ulcers of lower extremities which are bandaged.. ABSENT: erythema, mottled, rash Results Laboratory Results: 10/30/19 03:54 10/30/19 03:54 10/30/19 10/30/19 03:54 03:54 WBC 13.6 H RBC 4.31 L Hgb 9.8 L Hct 31.6 L MCV 73 L MCH 22.8 L MCHC 31.0 L RDW 24.2 H Plt Count 115 L Seg Neutrophils % Not Reportable Sodium 132.6 L Potassium 3.3 L Chloride 93 L Carbon Dioxide 24 Anion Gap 16 BUN 52 H Creatinine 1.89 H Est GFR ( Amer) 41 L Glucose 144 H Calcium 8.3 L 10/27/19 08:40 Blood Blood Culture (PCR) - Final Staphylococcus Aureus 10/27/19 08:40 Blood Blood Culture - Final Staphylococcus Aureus 10/27/19 08:49 Blood Blood Culture (PCR) - Final Staphylococcus Aureus 10/27/19 08:49 Blood Blood Culture - Final Staphylococcus Aureus 10/27/19 13:50 Leg - Lower Gram Stain - Final 10/27/19 13:50 Leg - Lower Wound Culture - Final Stenotrophomonas Maltophilia Staphylococcus Aureus Group B Beta Streptococcus Pseudomonas Aeruginosa 10/24/19 10/27/19 06:41 03:45 Creatine Kinase < 20 L Troponin I 0.406 Impressions: Ankle X-Ray 10/24/19 07:04 IMPRESSION: 1. Degenerative changes of the left ankle and midfoot. 2. Diffuse soft tissue swelling surrounding the left ankle. 3. No definite radiographic findings to suggest osteomyelitis. Foot X-Ray 10/24/19 07:05 IMPRESSION: 1. No definite acute osseous abnormality or definite findings to suggest acute osteomyelitis. 2. Degenerative changes of the midfoot and hindfoot. 3. Diffuse soft tissue swelling surrounding the left foot. There are questionable 1 cm soft tissue masses along the dorsal aspect of the left foot best appreciated on the lateral projection. Chest CT 10/26/19 00:00 IMPRESSION: CARDIOMEGALY. MODERATELY LARGE BILATERAL PLEURAL EFFUSIONS. BILATERAL LOWER LOBE AIRSPACE DISEASE MOST LIKELY DUE TO COMPRESSIVE ATELECTA SIS. SUPERIMPOSED INFECTION MAY BE POSSIBLE. Lower Extremity CT 10/26/19 00:00 IMPRESSION: DIFFUSE SOFT TISSUE EDEMA WHICH COULD BE DUE TO CELLULITIS AND UNDERLYING SOFT TISSUE INFECTION. NO DISCRETE ABSCESS DEMONSTRATED. Abdomen/Pelvis CT 10/28/19 00:00 IMPRESSION: 1. Uzdr-br-[id number] bilateral effusions, right greater than left, with associated basilar atelectasis. 2. Small volume ascites with anasarca. No evidence of focal drainable abscess or other acute intra-abdominal/pelvic process. 3. Colonic diverticulosis. 4. Indeterminate density 4.2 cm renal lesion, likely proteinaceous cyst. Modified Barium Swallow 10/28/19 00:00 IMPRESSION: LARYNGEAL PENETRATION WITH RESIDUALS, HOWEVER NO DEFINITE ASPIRATION IDENTIFIED. PLEASE SEE SPEECH PATHOLOGIST REPORT FOR OTHER FINDINGS AND RECOMMENDATIONS. Renal Ultrasound 10/28/19 00:00 IMPRESSION: 1. No urinary obstruction or suspicious mass. Other findings as above. Chest X-Ray 10/29/19 06:00 IMPRESSION: NO SIGNIFICANT CHANGE. Assessment & Plan - Diagnosis (1) Septic shock Is this a current diagnosis for this admission?: Yes Plan: Improving and is being weaned off of pressors. Platelets are still dropping slightly up but INR is improving indicative of improving DIC. Continue lines including fluids but stop the albumin. Will also add low-dose of Midodrin. Discussed with precipitation equipment tender. (2) Staphylococcus aureus bacteremia with sepsis Is this a current diagnosis for this admission?: Yes Plan: Appropriate antibiotics. Monitor drug levels and dose to a GFR of approximately less than 20 to 25 cc/min. (3) Cellulitis Is this a current diagnosis for this admission?: Yes Plan: IV antibiotics. (4) BEVERLY (acute kidney injury) Is this a current diagnosis for this admission?: Yes Plan: Nonoliguric. Creatinine peaked at 2.1 couple of days ago and today is 1.8. C reshmainue present guidelines. Caution with nephrotoxic drugs. (5) Hyponatremia Is this a current diagnosis for this admission?: Yes Plan: Improving as seen by sodium stable at 132 as to 127 yestreday. Continue current guidelines. (6) Afib Qualifiers: Qualified Code(s): I48.91 - Unspecified atrial fibrillation Is this a current diagnosis for this admission?: Yes Plan: Rate controlled on IV amiodarone. As per precipitation equipment tender.
[2019-10-31 03:49] LABS: HEMATOCRIT 30.2 % (37.9-51.0); HEMOGLOBIN 9.5 g/dL (13.5-17.0); MEAN CORPUSCULAR HEMOGLOBIN 22.9 pg (27.0-33.4); MEAN CORPUSCULAR HGB CONC 31.3 g/dL (32.0-36.0); MEAN CORPUSCULAR VOLUME 73 fl (80-97); PLATELET COUNT 100 10^3/uL (150-450); RED BLOOD COUNT 4.13 10^6/uL (4.35-5.55); RED CELL DISTRIBUTION WIDTH 24.4 % (11.5-14.0); WHITE BLOOD COUNT 11.1 10^3/uL (4.0-10.5)
[2019-10-31 03:53] LABS: ANION GAP 12 (5-19); BLOOD UREA NITROGEN 53 mg/dL (7-20); CARBON DIOXIDE 27 mmol/L (22-30); CHLORIDE 95 mmol/L (98-107); GLUCOSE 123 mg/dL (75-110); POTASSIUM 3.3 mmol/L (3.6-5.0)
[2019-10-31 04:24] LABS: ABSOLUTE LYMPHOCYTES# (MANUAL) 0.6 10^3/uL (0.5-4.7); ABSOLUTE MONOCYTES # (MANUAL) 0.6 10^3/uL (0.1-1.4); BAND NEUTROPHILS % (MANUAL) 4 % (3-5); BASOPHILS % (MANUAL) 0 % (0-2); EOSINOPHILS % (MANUAL) 0 % (0-6); LYMPHOCYTES % (MANUAL) 5 % (13-45); METAMYELOCYTES % (MANUAL) 2 % (0-1); MONOCYTES % (MANUAL) 5 % (3-13); MYELOCYTES % (MANUAL) 2 % (0); NUCLEATED RED BLOOD CELLS 2 /100 WBC (0); SEGMENTED NEUTROPHILS % (MAN) 82 % (42-78); TOTAL CELLS COUNTED 100
[2019-10-31 04:27] LABS: ANISOCYTOSIS 3+; HYPOCHROMASIA 1+; OVALOCYTES SLIGHT; PLATELET COMMENT DECREASED; POIKILOCYTOSIS SLIGHT; POLYCHROMASIA SLIGHT; TARGET CELLS 1+; TEAR DROP CELLS SLIGHT; TOXIC GRANULATION 1+
[2019-10-31] MEDS: INSULIN REG, HUMAN 100 UNIT/ML 3 ML VIAL (PYX) SUBCUT SCH ×3 (05:38→17:39)
[2019-10-31] MEDS: HYDROCORTISONE SOD SUCCINATE INJ/PF 100 MG/2 ML SDV IV SCH ×3 (05:39→21:52)
[2019-10-31] MEDS: PANTOPRAZOLE SODIUM 20 MG TABLET.DR PO SCH (05:39)
[2019-10-31] MEDS: MIDODRINE HCL 5 MG TABLET PO SCH ×3 (11:11→17:39)
[2019-10-31] MEDS: TAMSULOSIN HCL 0.4 MG CAP.SR.24H PO SCH (11:11)
[2019-10-31] MEDS: MEROPENEM 1 GM in NORMAL SALINE 50 ML IV SCH ×2 (11:12→21:51)
[2019-10-31] MEDS: LINEZOLID 600 MG/300 ML RTUPB IV SCH ×2 (11:12→21:52)
[2019-10-31] MEDS: FUROSEMIDE INJ/PF 20 MG/2 ML SDV IV SCH ×2 (11:12→21:52)
--- NOTE | 2019-10-31 12:51 | PDOC PROGRESS REPORT ---
Subjective Progress Note for:: 10/31/19 Reason For Visit: Patient seen in the ICU today. Undergoing physical therapy. Looks better. Patient denies any specific complaints of chest pain shortness of breath. Labs and medications were reviewed. Sodium is improved to 133. Creatinine stable.Blood pressures are improving. Physical Exam Vital Signs: Temp Pulse Resp BP Pulse Ox 97.5 F 105 H 18 115/84 96 10/31/19 12:00 10/31/19 12:00 10/31/19 12:00 10/31/19 12:00 10/31/19 12:00 Intake & Output 10/30/19 10/31/19 11/01/19 06:59 06:59 06:59 Intake Total 2550 767 350 Output Total 4435 2350 255 Balance -1875 -1583 95 Weight 114.7 kg 112.9 kg General appearance: PRESENT: no acute distress Respiratory exam: PRESENT: clear to auscultation vasile, crackles, decreased breath sounds Cardiovascular exam: PRESENT: +S1, +S2 GI/Abdominal exam: PRESENT: normal bowel sounds, soft. ABSENT: organomegaly, tenderness Extremities exam: PRESENT: pedal edema Neurological exam: PRESENT: alert, awake, oriented to person Psychiatric exam: PRESENT: appropriate affect Results Laboratory Results: 10/31/19 03:27 10/31/19 03:27 10/31/19 10/31/19 03:27 03:27 WBC 11.1 H RBC 4.13 L Hgb 9.5 L Hct 30.2 L MCV 73 L MCH 22.9 L MCHC 31.3 L RDW 24.4 H Plt Count 100 L Seg Neutrophils % Not Reportable Sodium 133.6 L Potassium 3.3 L Chloride 95 L Carbon Dioxide 27 Anion Gap 12 BUN 53 H Creatinine 1.77 H Est GFR ( Amer) 44 L Glucose 123 H Calcium 8.0 L 10/27/19 08:40 Blood Blood Culture (PCR) - Final Staphylococcus Aureus 10/27/19 08:40 Blood Blood Culture - Final Staphylococcus Aureus 10/27/19 08:49 Blood Blood Culture (PCR) - Final Staphylococcus Aureus 10/27/19 08:49 Blood Blood Culture - Final Staphylococcus Aureus 10/27/19 13:50 Leg - Lower Gram Stain - Final 10/27/19 13:50 Leg - Lower Wound Culture - Final Stenotrophomonas Maltophilia Staphylococcus Aureus Group B Beta Streptococcus Pseudomonas Aeruginosa 10/24/19 10/27/19 06:41 03:45 Creatine Kinase < 20 L Troponin I 0.406 Impressions: Ankle X-Ray 10/24/19 07:04 IMPRESSION: 1. Degenerative changes of the left ankle and midfoot. 2. Diffuse soft tissue swelling surrounding the left ankle. 3. No definite radiographic findings to suggest osteomyelitis. Foot X-Ray 10/24/19 07:05 IMPRESSION: 1. No definite acute osseous abnormality or definite findings to suggest acute osteomyelitis. 2. Degenerative changes of the midfoot and hindfoot. 3. Diffuse soft tissue swelling surrounding the left foot. There are questionable 1 cm soft tissue masses along the dorsal aspect of the left foot best appreciated on the lateral projection. Chest CT 10/26/19 00:00 IMPRESSION: CARDIOMEGALY. MODERATELY LARGE BILATERAL PLEURAL EFFUSIONS. BILATERAL LOWER LOBE AIRSPACE DISEASE MOST LIKELY DUE TO COMPRESSIVE ATELECTASIS. SUPERIMPOSED INFECTION MAY BE POSSIBLE. Lower Extremity CT 10/26/19 00:00 IMPRESSION: DIFFUSE SOFT TISSUE EDEMA WHICH COULD BE DUE TO CELLULITIS AND UNDERLYING SOFT TISSUE INFECTION. NO DISCRETE ABSCESS DEMONSTRATED. Abdomen/Pelvis CT 10/28/19 00:00 IMPRESSION: 1. Ikyd-ta-rycuipgz bilateral effusions, right greater than left, with associated basilar atelectasis. 2. Small volume ascites with anasarca. No evidence of focal drainable abscess or other acute intra-abdominal/pelvic process. 3. Colonic diverticulosis. 4. Indeterminate density 4.2 cm renal lesion, likely proteinaceous cyst. Modified Barium Swallow 10/28/19 00:00 IMPRESSION: LARYNGEAL PENETRATION WITH RESIDUALS, HOWEVER NO DEFINITE ASPIRATION IDENTIFIED. PLEASE SEE SPEECH PATHOLOGIST REPORT FOR OTHER FINDINGS AND RECOMMENDATIONS. Renal Ultrasound 10/28/19 00:00 IMPRESSION: 1. No urinary obstruction or suspicious mass. Other findings as above. Chest X-Ray 10/29/19 06:00 IMPRESSION: NO SIGNIFICANT CHANGE. Assessment & Plan - Diagnosis (1) Septic shock Is this a current diagnosis for this admission?: Yes Plan: Improving and is being weaned off of pressors. Platelets are still dropping slightly up but INR is improving indicative of improving DIC. Continue fluids (2) Staphylococcus aureus bacteremia with sepsis Is this a current diagnosis for this admission?: Yes Plan: Appropriate antibiotics. Monitor drug levels and dose to a GFR of approximately less than 20 to 25 cc/min. (3) Cellulitis Is this a current diagnosis for this admission?: Yes Plan: IV antibiotics. (4) BEVERLY (acute kidney injury) Is this a current diagnosis for this admission?: Yes Plan: Nonoliguric. Creatinine peaked at 2.1 couple of days ago and today is 1.7. Continue present guidelines. Caution with nephrotoxic drugs. I am going to sign off this patient for now. Please call on a as needed basis. (5) Hyponatremia Is this a current diagnosis for this admission?: Yes Plan: Improving as seen by sodium stable at 133 as to 132 yesterday. Continue current guidelines. (6) Afib Qualifiers: Atrial fibrillation type: unspecified Qualified Code(s): I48.91 - Unspecified atrial fibrillation Is this a current diagnosis for this admission?: Yes Plan: Rate controlled on IV amiodarone. As per senior actuarial analyst.
--- NOTE | 2019-10-31 15:32 | PDOC CRITICAL CARE PROG REPORT ---
General Date:: 10/31/19 ICU Day:: 8 Hospital Day:: 8 Resuscitation Status: Full Code Events in the past 12 to 24 Hours:: Stable neuro status Review of systems relevant to events:: Neuro, CV, renal and ID Reason for ICU Addmission:: septic shock, HCAP, cellulitis, need for pressors. Resolved. - Medications: Medications reviewed and adjusted accordingly: Yes Vasopressors:: None Sedation:: None Physical Exam Vital Signs: Temp Pulse Resp BP Pulse Ox 97.2 F 89 26 H 105/59 L 98 10/31/19 14:00 10/31/19 14:00 10/31/19 14:00 10/31/19 14:00 10/31/19 14:00 Intake & Output 10/30/19 10/31/19 11/01/19 06:59 06:59 06:59 Intake Total 2550 767 350 Output Total 4425 2350 365 Balance -1875 -1583 -15 Weight 114.7 kg 112.9 kg 112.8 kg Weight/Height Weight 112.8 kg Height 6 ft General appearance: PRESENT: no acute distress, cooperative Exam: Confused at times. More so today. Head exam: PRESENT: atraumatic, normocephalic Eye exam: PRESENT: conjunctiva pink, EOMI, PERRLA. ABSENT: scleral icterus Ear exam: PRESENT: normal external ear exam Mouth exam: PRESENT: moist, tongue midline Respiratory exam: PRESENT: clear to auscultation vasile. ABSENT: rales, rhonchi, wheezes Cardiovascular exam: PRESENT: RRR. ABSENT: diastolic murmur, rubs, systolic murmur GI/Abdominal exam: PRESENT: normal bowel sounds, soft. ABSENT: distended, guarding, mass, organolmegaly, rebound, tenderness Rectal exam: PRESENT: deferred Gentrourinary exam: PRESENT: indwelling catheter Extremities exam: PRESENT: pedal edema, other - Clean wounds Neurological exam: PRESENT: alert, altered, awake Laboratory/Radiographs Laboratory Results: 10/31/19 03:27 10/31/19 03:27 10/31/19 10/31/19 03:27 03:27 WBC 11.1 H RBC 4.13 L Hgb 9.5 L Hct 30.2 L MCV 73 L MCH 22.9 L MCHC 31.3 L RDW 24.4 H Plt Count 100 L Seg Neutrophils % Not Reportable Sodium 133.6 L Potassium 3.3 L Chloride 95 L Carbon Dioxide 27 Anion Gap 12 BUN 53 H Creatinine 1.77 H Est GFR ( Amer) 44 L Glucose 123 H Calcium 8.0 L 10/27/19 08:40 Blood Blood Culture (PCR) - Final Staphylococcus Aureus 10/27/19 08:40 Blood Blood Culture - Final Staphylococcus Aureus 10/27/19 08:49 Blood Blood Culture (PCR) - Final Staphylococcus Aureus 10/27/19 08:49 Blood Blood Culture - Final Staphylococcus Aureus 10/24/19 10/27/19 06:41 03:45 Creatine Kinase < 20 L Troponin I 0.406 Impressions: Ankle X-Ray 10/24/19 07:04 IMPRESSION: 1. Degenerative changes of the left ankle and midfoot. 2. Diffuse soft tissue swelling surrounding the left ankle. 3. No definite radiographic findings to suggest osteomyelitis. Foot X-Ray 10/24/19 07:05 IMPRESSION: 1. No definite acute osseous abnormality or definite findings to suggest acute osteomyelitis. 2. Degenerative changes of the midfoot and hindfoot. 3. Diffuse soft tissue swelling surrounding the left foot. There are questionable 1 cm soft tissue masses along the dorsal aspect of the left foot best appreciated on the lateral projection. Chest CT 10/26/19 00:00 IMPRESSION: CARDIOMEGALY. MODERATELY LARGE BILATERAL PLEURAL EFFUSIONS. BILATERAL LOWER LOBE AIRSPACE DISEASE MOST LIKELY DUE TO COMPRESSIVE ATELECTASIS. SUPERIMPOSED INFECTION MAY BE POSSIBLE. Lower Extremity CT 10/26/19 00:00 IMPRESSION: DIFFUSE SOFT TISSUE EDEMA WHICH COULD BE DUE TO CELLULITIS AND UNDERLYING SOFT TISSUE INFECTION. NO DISCRETE ABSCESS DEMONSTRATED. Abdomen/Pelvis CT 10/28/19 00:00 IMPRESSION: 1. Mlbq-kn-rooaxzxb bilateral effusions, right greater than left, with associated basilar atelectasis. 2. Small volume ascites with anasarca. No evidence of focal drainable abscess or other acute intra-abdominal/pelvic process. 3. Colonic diverticulosis. 4. Indeterminate density 4.2 cm renal lesion, likely proteinaceous cyst. Modified Barium Swallow 10/28/19 00:00 IMPRESSION: LARYNGEAL PENETRATION WITH RESIDUALS, HOWEVER NO DEFINITE ASPIRATION IDENTIFIED. PLEASE SEE SPEECH PATHOLOGIST REPORT FOR OTHER FINDINGS AND RECOMMENDATIONS. Renal Ultrasound 10/28/19 00:00 IMPRESSION: 1. No urinary obstruction or suspicious mass. Other findings as above. Chest X-Ray 10/29/19 06:00 IMPRESSION: NO SIGNIFICANT CHANGE. All labs, radiographs, diagnostic studies and EKGs were personally reviewed: Yes In addition, reports of radiographic and diagnostic studies were read: Yes Assessment and Plan - Diagnosis (1) Delirium Is this a current diagnosis for this admission?: Yes Plan: He likely has elements of a hypoactive delirium. Reorientation and transfer from the ICU should help. Hope to downgrade ia AM. (2) Afib Qualifiers: Atrial fibrillation type: unspecified Qualified Code(s): I48.91 - Unspecified atrial fibrillation Is this a current diagnosis for this admission?: Yes Plan: Controlled and stable (3) HCAP (healthcare-associated pneumonia) Is this a current diagnosis for this admission?: Yes Plan: Resolved (4) Hyperbilirubinemia Is this a current diagnosis for this admission?: Yes Plan: Not jaundiced. Likely from infections. Check labs again in AM. (5) Hyponatremia Is this a current diagnosis for this admission?: Yes Plan: Nearly resolved (6) Pseudomonas aeruginosa infection Is this a current diagnosis for this admission?: Yes Plan: Continue abx (7) Septic shock Is this a current diagnosis for this admission?: Yes Plan: Resolved (8) Staphylococcus aureus bacteremia with sepsis Is this a current diagnosis for this admission?: Yes Plan: Resolved (9) BEVERLY (acute kidney injury) Is this a current diagnosis for this admission?: Yes Plan: Improved. Plan Summary: Hope to downgrade in AM. Critical Time Critical Time (minutes): 35 Level of Care: ICU Anticipated discharge: SNF Within: Other - > one week. -: 1. The care of a critical patient is a dynamic process. This note is a rep resentative synopsis but static in nature. The timeframe for treatments given in order is not necessarily the actual time these treatments may have been done. 2. This patient requires critical care secondary to ongoing requirements for therapy not offered or safe outside the critical care environment. Transfer to a lower level of care will result in altered life or limb morbidity and mortality. 3. Multidisciplinary rounds completed. 4. ABCDE bundle addressed.
[2019-11-01] MEDS: INSULIN REG, HUMAN 100 UNIT/ML 3 ML VIAL (PYX) SUBCUT SCH ×4 (01:40→18:15)
[2019-11-01 05:23] LABS: ANION GAP 14 (5-19); BLOOD UREA NITROGEN 56 mg/dL (7-20); CARBON DIOXIDE 27 mmol/L (22-30); CHLORIDE 94 mmol/L (98-107); GLUCOSE 180 mg/dL (75-110)
[2019-11-01 05:27] LABS: POTASSIUM 2.9 mmol/L (3.6-5.0)
[2019-11-01] MEDS ORDERED: POTASSI CL 20 MEQ/50 ML RIDER 20 MEQ/50 ML RTUPB IV ONE (05:37)
[2019-11-01] MEDS: POTASSI CL 20 MEQ/50 ML RIDER 20 MEQ/50 ML RTUPB IV SCH ×5 (05:40→21:30)
[2019-11-01] MEDS: PANTOPRAZOLE SODIUM 20 MG TABLET.DR PO SCH (05:51)
[2019-11-01] MEDS: HYDROCORTISONE SOD SUCCINATE INJ/PF 100 MG/2 ML SDV IV SCH ×3 (05:51→22:41)
--- NOTE | 2019-11-01 08:40 | EKG REPORT ---
SEVERITY:- ABNORMAL ECG - ATRIAL FIBRILLATION, V-RATE 62-113 NONSPECIFIC INTRAVENTRICULAR CONDUCTION DELAY PROBABLE ANTEROSEPTAL INFARCT, AGE INDETERM : Confirmed by: Keaton Reyes MD 01-Nov-2019 08:39:34
[2019-11-01] MEDS: FUROSEMIDE INJ/PF 20 MG/2 ML SDV IV SCH (09:43)
[2019-11-01] MEDS: LINEZOLID 600 MG/300 ML RTUPB IV SCH ×2 (09:44→22:42)
[2019-11-01] MEDS: TAMSULOSIN HCL 0.4 MG CAP.SR.24H PO SCH (09:44)
[2019-11-01] MEDS: MEROPENEM 1 GM in NORMAL SALINE 50 ML IV SCH ×2 (09:44→22:41)
[2019-11-01] MEDS: MIDODRINE HCL 5 MG TABLET PO SCH ×3 (09:44→17:32)
--- NOTE | 2019-11-01 10:32 | PDOC CRITICAL CARE PROG REPORT ---
General Date:: 11/01/19 ICU Day:: 9 Hospital Day:: 9 Resuscitation Status: Full Code Review of systems relevant to events:: Respiratory, neuro. Reason for ICU Addmission:: septic shock, HCAP, cellulitis, need for pressors. Resolved. - Medications: Medications reviewed and adjusted accordingly: Yes Vasopressors:: None Sedation:: None. Physical Exam Vital Signs: Temp Pulse Resp BP Pulse Ox 95.9 F L 80 19 108/68 95 11/01/19 08:00 11/01/19 08:00 11/01/19 08:00 11/01/19 08:00 11/01/19 08:00 Intake & Output 10/31/19 11/01/19 11/02/19 06:59 06:59 06:59 Intake Total 767 726 50 Output Total 2350 1465 215 Balance -1583 -739 -165 Weight 112.9 kg 112.9 kg Weight/Height Weight 112.9 kg Height 6 ft General appearance: PRESENT: no acute distress, cooperative Head exam: PRESENT: atraumatic, normocephalic Eye exam: PRESENT: conjunctiva pink, EOMI, PERRLA. ABSENT: scleral icterus Ear exam: PRESENT: normal external ear exam Mouth exam: PRESENT: moist, tongue midline Respiratory exam: PRESENT: clear to auscultation vasile, decreased breath sounds, unlabored, other - Much stronger cough Cardiovascular exam: PRESENT: RRR. ABSENT: diastolic murmur, rubs, systolic murmur GI/Abdominal exam: PRESENT: normal bowel sounds, soft. ABSENT: distended, guarding, mass, organolmegaly, rebound, tenderness Rectal exam: PRESENT: deferred Extremities exam: PRESENT: pedal edema, other - Wounds not infected. Neurological exam: PRESENT: alert, awake, oriented to person, oriented to place Laboratory/Radiographs Laboratory Results: 10/31/19 03:27 11/01/19 04:49 11/01/19 04:49 Sodium 134.9 L Potassium 2.9 L* Chloride 94 L Carbon Dioxide 27 Anion Gap 14 BUN 56 H Creatinine 1.84 H Est GFR ( Amer) 42 L Glucose 180 H Calcium 8.0 L 10/24/19 10/27/19 11/01/19 06:41 03:45 07:30 Creatine Kinase < 20 L Troponin I 0.406 0.162 Impressions: Ankle X-Ray 10/24/19 07:04 IMPRESSION: 1. Degenerative changes of the left ankle and midfoot. 2. Diffuse soft tissue swelling surrounding the left ankle. 3. No definite radiographic findings to suggest osteomyelitis. Foot X-Ray 10/24/19 07:05 IMPRESSION: 1. No definite acute osseous abnormality or definite findings to suggest acute osteomyelitis. 2. Degenerative changes of the midfoot and hindfoot. 3. Diffuse soft tissue swelling surrounding the left foot. There are questionable 1 cm soft tissue masses along the dorsal aspect of the left foot best appreciated on the lateral projection. Chest CT 10/26/19 00:00 IMPRESSION: CARDIOMEGALY. MODERATELY LARGE BILATERAL PLEURAL EFFUSIONS. BILATERAL LOWER LOBE AIRSPACE DISEASE MOST LIKELY DUE TO COMPRESSIVE ATELECTASIS. SUPERIMPOSED INFECTION MAY BE POSSIBLE. Lower Extremity CT 10/26/19 00:00 IMPRESSION: DIFFUSE SOFT TISSUE EDEMA WHICH COULD BE DUE TO CELLULITIS AND UNDERLYING SOFT TISSUE INFECTION. NO DISCRETE ABSCESS DEMONSTRATED. Abdomen/Pelvis CT 10/28/19 00:00 IMPRESSION: 1. Kbcp-nk-pyzidjbt bilateral effusions, right greater than left, with associated basilar atelectasis. 2. Small volume ascites with anasarca. No evidence of focal drainable abscess or other acute intra-abdominal/pelvic process. 3. Colonic diverticulosis. 4. Indeterminate density 4.2 cm renal lesion, likely proteinaceous cyst. Modified Barium Swallow 10/28/19 00:00 IMPRESSION: LARYNGEAL PENETRATION WITH RESIDUALS, HOWEVER NO DEFINITE ASPIRATION IDENTIFIED. PLEASE SEE SPEECH PATHOLOGIST REPORT FOR OTHER FINDINGS AND RECOMMENDATIONS. Renal Ultrasound 10/28/19 00:00 IMPRESSION: 1. No urinary obstruction or suspicious mass. Other findings as above. Chest X-Ray 10/29/19 06:00 IMPRESSION: NO SIGNIFICANT CHANGE. All labs, radiographs, diagnostic studies and EKGs were personally reviewed: Yes In addition, reports of radiographic and diagnostic studies were read: Yes Assessment and Plan - Diagnosis (1) Delirium Is this a current diagnosis for this admission?: Yes Plan: Improved. There was some hypoactivity yesterday. Gone now. Fluctuation is a feature of delirium. Able to downgrade from the ICU-the best treatment for delirium. Minimize sleep disturbances. No deliriogenic medications (benzos). (2) Afib Qualifiers: Atrial fibrillation type: unspecified Qualified Code(s): I48.91 - Unspecified atrial fibrillation Is this a current diagnosis for this admission?: Yes Plan: Controlled at 70-80. (3) HCAP (healthcare-associated pneumonia) Is this a current diagnosis for this admission?: Yes Plan: In view of modified barium swallow, this could certainly be an aspiration pneumonitis as signs and symptoms are the same. There is no sputum culture. Will comply with speech recomendations. (4) Hyperbilirubinemia Is this a current diagnosis for this admission?: Yes Plan: Recheck labs, no jaundice. (5) Hyponatremia Is this a current diagnosis for this admission?: Yes Plan: Resolved (6) Pseudomonas aeruginosa infection Is this a current diagnosis for this admission?: Yes Plan: Antibiotics to end soon. (7) Septic shock Is this a current diagnosis for this admission?: Yes Plan: Resolved (8) Staphylococcus aureus bacteremia with sepsis Is this a current diagnosis for this admission?: Yes Plan: Resolved (9) BEVERLY (acute kidney injury) Is this a current diagnosis for this admission?: Yes Plan: Cr and GFR essentially unchanged (10) Hypokalemia Is this a current diagnosis for this admission?: Yes Plan: Level now at 2.9. Needs replacement. Plan Summary: Transfer to [facility] when a bed available. Critical Time Critical Time (minutes): 40 Level of Care: ICU Anticipated discharge: SNF Within: Other - Too soon to tell. -: 1. The care of a critical patient is a dynamic process. This note is a provider service representative synopsis but static in nature. The timeframe for treatments gi jace in order is not necessarily the actual time these treatments may have been done. 2. This patient requires critical care secondary to ongoing requirements for therapy not offered or safe outside the critical care environment. Transfer to a lower level of care will result in altered life or limb morbidity and mortality. 3. Multidisciplinary rounds completed. 4. ABCDE bundle addressed.
[2019-11-01] MEDS ORDERED: POLYETHYLENE GLYCOL 3350 POWDER 17 GM/1 PACKET PO ONE (11:00)
--- NOTE | 2019-11-01 13:32 | PDOC PROGRESS REPORT ---
Subjective Progress Note for:: 11/01/19 Subjective:: Assuming care patient is being transferred from the ICU to the IMCU. Briefly, patient is a debilitated 84-year-old male with chronic leg swelling and CKD who was admitted to the ICU on 10/24/2019 for septic shock secondary to left lower extremity infected venous wounds. Patient ended up having MSSA and Pseudomonas bacteremia. Wound culture also grew MSSA and Pseudomonas along with other microbes. He was treated with IV antibiotics. Last blood culture was on 10/27/2019 which was still positive for MSSA. Patient was placed on Midodrine in the ICU but has been off any pressors. Patient has been very mildly hypothermic and around 95F throughout stay in the hospital. Patient also had MBBS which shows some dysphagia and penetration up to the vocal cords. Patient currently stable and transferred to the IMCU. Patient's at this time only endorses some shortness of breath. Denies any pain currently. Reason For Visit: SEPSIS,LEFT LOWER EXTREMITY WOUND, HISTORY OF Physical Exam Vital Signs: Temp Pulse Resp BP Pulse Ox 95.5 F L 87 25 H 113/82 95 11/01/19 12:00 11/01/19 12:00 11/01/19 12:00 11/01/19 12:00 11/01/19 12:00 Intake & Output 10/31/19 11/01/19 11/02/19 06:59 06:59 06:59 Intake Total 767 726 400 Output Total 2350 1465 940 Balance -1583 -739 -540 Weight 112.9 kg 112.9 kg General appearance: PRESENT: no acute distress, cooperative Respiratory exam: PRESENT: crackles Cardiovascular exam: PRESENT: +S1, +S2 GI/Abdominal exam: PRESENT: soft. ABSENT: rebound, rigid, tenderness Extremities exam: PRESENT: +2 edema - bilateral, other - wound in LLE with purulent base Neurological exam: PRESENT: alert, awake, oriented to person, oriented to place, oriented to situation. ABSENT: oriented to time Results Laboratory Results: 10/31/19 03:27 11/01/19 04:49 11/01/19 04:49 Sodium 134.9 L Potassium 2.9 L* Chloride 94 L Carbon Dioxide 27 Anion Gap 14 BUN 56 H Creatinine 1.84 H Est GFR ( Amer) 42 L Glucose 180 H Calcium 8.0 L 10/24/19 10/27/19 11/01/19 06:41 03:45 07:30 Creatine Kinase < 20 L Troponin I 0.406 0.162 Impressions: Ankle X-Ray 10/24/19 07:04 IMPRESSION: 1. Degenerative changes of the left ankle and midfoot. 2. Diffuse soft tissue swelling surrounding the left ankle. 3. No definite radiographic findings to suggest osteomyelitis. Foot X-Ray 10/24/19 07:05 IMPRESSION: 1. No definite acute osseous abnormality or definite findings to suggest acute osteomyelitis. 2. Degenerative changes of the midfoot and hindfoot. 3. Diffuse soft tissue swelling surrounding the left foot. There are questionable 1 cm soft tissue masses along the dorsal aspect of the left foot best appreciated on the lateral projection. Chest CT 10/26/19 00:00 IMPRESSION: CARDIOMEGALY. MODERATELY LARGE BILATERAL PLEURAL EFFUSIONS. BILATERAL LOWER LOBE AIRSPACE DISEASE MOST LIKELY DUE TO COMPRESSIVE ATELECTASIS. SUPERIMPOSED INFECTION MAY BE POSSIBLE. Lower Extremity CT 10/26/19 00:00 IMPRESSION: DIFFUSE SOFT TISSUE EDEMA WHICH COULD BE DUE TO CELLULITIS AND UNDERLYING SOFT TISSUE INFECTION. NO DISCRETE ABSCESS DEMONSTRATED. Abdomen/Pelvis CT 10/28/19 00:00 IMPRESSION: 1. Nhwh-sj-scvmmnhk bilateral effusions, right greater than left, with associated basilar atelectasis. 2. Small volume ascites with anasarca. No evidence of focal drainable abscess or other acute intra-abdominal/pelvic process. 3. Colonic diverticulosis. 4. Indeterminate density 4.2 cm renal lesion, likely proteinaceous cyst. Modified Barium Swallow 10/28/19 00:00 IMPRESSION: LARYNGEAL PENETRATION WITH RESIDUALS, HOWEVER NO DEFINITE ASPIRATION IDENTIFIED. PLEASE SEE SPEECH PATHOLOGIST REPORT FOR OTHER FINDINGS AND RECOMMENDATIONS. Renal Ultrasound 10/28/19 00:00 IMPRESSION: 1. No urinary obstruction or suspicious mass. Other findings as above. Chest X-Ray 10/29/19 06:00 IMPRESSION: NO SIGNIFICANT CHANGE. Assessment and Plan - Diagnosis (1) Infected stasis ulcer of lower extremity Is this a current diagnosis for this admission?: Yes (2) Bacteremia Is this a current diagnosis for this admission?: Yes (3) Hypothermia Is this a current diagnosis for this admission?: Yes (4) CKD (chronic kidney disease) Is this a current diagnosis for this admission?: Yes (5) Afib Qualifiers: Atrial fibrillation type: unspecified Qualified Code(s): I48.91 - Unspecified atrial fibrillation Is this a current diagnosis for this admission?: Yes (6) HCAP (healthcare-associated pneumonia) Is this a current diagnosis for this admission?: Yes (7) Hyperbilirubinemia Is this a current diagnosis for this admission?: Yes (8) Leg edema Is this a current diagnosis for this admission?: Yes (9) Oropharyngeal dysphagia Is this a current diagnosis for this admission?: Yes - Plan Summary Summary: Care assumed from ICU Patient currently on Zyvox and meropenem as well as Midodrine which i will tiara nue for now Medications reviewed Last blood culture notably on 10/27/2019 which was still positive for staph aureus Repeat blood cultures now Mupirocin topical for infected wound with frequent dressing changes replete Potassium levels recheck labs - Time Time Spent with patient: 15-24 minutes
[2019-11-01 15:44] LABS: ANION GAP 14 (5-19); BLOOD UREA NITROGEN 56 mg/dL (7-20); CARBON DIOXIDE 28 mmol/L (22-30); CHLORIDE 93 mmol/L (98-107); GLUCOSE 167 mg/dL (75-110)
[2019-11-01] MEDS ORDERED: POTASSIUM CHLORIDE 20 MEQ PACKET PO ONE (16:30)
[2019-11-01] MEDS: MUPIROCIN 2% OINTMENT 22 GM TP SCH (17:32)
[2019-11-02] MEDS: INSULIN REG, HUMAN 100 UNIT/ML 3 ML VIAL (PYX) SUBCUT SCH ×4 (00:59→18:36)
[2019-11-02] MEDS ORDERED: NORMAL SALINE 1000 ML 1,000 ML IV ONE (03:37)
[2019-11-02] MEDS ORDERED: METHYLPREDNISOLONE INJ 125 MG/2 ML SDV IV ONE (03:38)
[2019-11-02] MEDS: POTASSI CL 20 MEQ/50 ML RIDER 20 MEQ/50 ML RTUPB IV SCH ×2 (04:17→09:52)
[2019-11-02 04:56] LABS: ALBUMIN 2.7 g/dL (3.5-5.0); ALKALINE PHOSPHATASE 108 U/L (38-126); ANION GAP 10 (5-19); ASPARTATE AMINO TRANSFERASE 56 U/L (17-59); BILIRUBIN,DIRECT 8.1 mg/dL (0.0-0.4); BILIRUBIN,TOTAL 10.5 mg/dL (0.2-1.3); BLOOD UREA NITROGEN 54 mg/dL (7-20); CALCIUM 8.1 mg/dL (8.4-10.2); CARBON DIOXIDE 30 mmol/L (22-30); CHLORIDE 97 mmol/L (98-107); GLUCOSE 152 mg/dL (75-110); PHOSPHORUS 4.2 mg/dL (2.5-4.5); TOTAL PROTEIN 5.6 g/dL (6.3-8.2)
[2019-11-02 05:02] LABS: HEMATOCRIT 31.6 % (37.9-51.0); HEMOGLOBIN 9.9 g/dL (13.5-17.0); MEAN CORPUSCULAR HEMOGLOBIN 23.1 pg (27.0-33.4); MEAN CORPUSCULAR HGB CONC 31.3 g/dL (32.0-36.0); MEAN CORPUSCULAR VOLUME 74 fl (80-97); RED BLOOD COUNT 4.29 10^6/uL (4.35-5.55); RED CELL DISTRIBUTION WIDTH 24.9 % (11.5-14.0); WHITE BLOOD COUNT 11.4 10^3/uL (4.0-10.5)
[2019-11-02 05:09] LABS: POTASSIUM 3.9 mmol/L (3.6-5.0)
[2019-11-02 05:24] LABS: CREATINE KINASE MB 2.33 ng/mL (<4.55)
[2019-11-02 05:30] LABS: TROPONIN I 0.123 ng/mL
[2019-11-02] MEDS: PANTOPRAZOLE SODIUM 20 MG TABLET.DR PO SCH (05:42)
[2019-11-02 05:55] LABS: PLATELET COUNT 98 10^3/uL (150-450)
[2019-11-02 05:58] LABS: ABSOLUTE LYMPHOCYTES# (MANUAL) 0.3 10^3/uL (0.5-4.7); ABSOLUTE MONOCYTES # (MANUAL) 0.1 10^3/uL (0.1-1.4); BASOPHILS % (MANUAL) 0 % (0-2); EOSINOPHILS % (MANUAL) 0 % (0-6); LYMPHOCYTES % (MANUAL) 3 % (13-45); MONOCYTES % (MANUAL) 1 % (3-13); NUCLEATED RED BLOOD CELLS 1 /100 WBC (0); SEGMENTED NEUTROPHILS % (MAN) 96 % (42-78); TOTAL CELLS COUNTED 100
[2019-11-02] MEDS: HYDROCORTISONE SOD SUCCINATE INJ/PF 100 MG/2 ML SDV IV SCH ×3 (05:59→22:51)
[2019-11-02 06:04] LABS: ANISOCYTOSIS 3+; OVALOCYTES 2+; PLATELET COMMENT DECREASED; POIKILOCYTOSIS 3+; SCHISTOCYTES 2+; TARGET CELLS 2+; TEAR DROP CELLS 1+
[2019-11-02] MEDS: MIDODRINE HCL 5 MG TABLET PO SCH ×3 (10:02→17:13)
[2019-11-02] MEDS: MEROPENEM 1 GM in NORMAL SALINE 50 ML IV SCH (10:02)
[2019-11-02] MEDS: POTASSIUM CHLORIDE 20 MEQ PACKET PO SCH (10:02)
[2019-11-02] MEDS: TAMSULOSIN HCL 0.4 MG CAP.SR.24H PO SCH (10:02)
[2019-11-02 10:03] LABS: CREATINE KINASE MB 2.25 ng/mL (<4.55); TROPONIN I 0.149 ng/mL
[2019-11-02] MEDS: MUPIROCIN 2% OINTMENT 22 GM TP SCH ×2 (10:03→17:14)
[2019-11-02] MEDS: LINEZOLID 600 MG/300 ML RTUPB IV SCH (10:03)
[2019-11-02] MEDS: FUROSEMIDE INJ/PF 20 MG/2 ML SDV IV SCH (10:05)
[2019-11-02] MEDS ORDERED: PIPERACILLIN/TAZOBACTAM 3.375 GM VIAL IV SCH (12:00)
--- NOTE | 2019-11-02 12:04 | PDOC PROGRESS REPORT ---
Subjective Subjective:: Still having trouble communicating his wishes. Patient does volunteer that does have some shortness of breath. Denies fever chills. Monitor patient is eating bites of his meals. However he claims some trouble swallowing pills. Reason For Visit: SEPSIS,LEFT LOWER EXTREMITY WOUND, HISTORY OF Physical Exam Vital Signs: Temp Pulse Resp BP Pulse Ox 97.3 F 84 16 112/64 96 11/02/19 07:43 11/02/19 09:00 11/02/19 07:43 11/02/19 07:43 11/02/19 07:43 Intake & Output 11/01/19 11/02/19 11/03/19 06:59 06:59 06:59 Intake Total 933 314 3151 Output Total 1465 2215 Balance -739 -1266 1050 Weight 112.9 kg 110.4 kg General appearance: PRESENT: no acute distress, cooperative Respiratory exam: PRESENT: crackles, symmetrical, unlabored. ABSENT: tachypnea, wheezes Cardiovascular exam: PRESENT: irregular rhythm, +S1, +S2, tachycardia. ABSENT: RRR GI/Abdominal exam: PRESENT: normal bowel sounds, soft. ABSENT: rebound, rigid, tenderness Extremities exam: PRESENT: +2 edema - Bilateral lower extremities Neurological exam: PRESENT: alert, awake, oriented to person, oriented to place, oriented to situation, other - Patient is oriented but does not fully answer to questions appropriately. Results Laboratory Results: 11/02/19 03:56 11/02/19 03:56 11/01/19 11/02/19 11/02/19 14:35 03:56 03:56 WBC RBC Hgb Hct MCV MCH MCHC RDW Plt Count Seg Neutrophils % Sodium 134.9 L 137.1 Potassium 3.0 L* 3.9 Chloride 93 L 97 L Carbon Dioxide 28 30 Anion Gap 14 10 BUN 56 H 54 H Creatinine 1.75 H 1.63 H Est GFR ( Amer) 45 L 49 L Glucose 167 H 152 H Calcium 8.0 L 8.1 L Phosphorus 4.2 Magnesium 1.8 Total Bilirubin 10.5 H AST 56 Alkaline Phosphatase 108 Total Protein 5.6 L Albumin 2.7 L TSH 3.77 11/02/19 03:56 WBC 11.4 H RBC 4.29 L Hgb 9.9 L Hct 31.6 L MCV 74 L MCH 23.1 L MCHC 31.3 L RDW 24.9 H Plt Count 98 L Seg Neutrophils % Not Reportable Sodium Potassium Chloride Carbon Dioxide Anion Gap BUN Creatinine Est GFR ( Amer) Glucose Calcium Phosphorus Magnesium Total Bilirubin AST Alkaline Phosphatase Total Protein Albumin TSH 10/24/19 10/27/19 11/01/19 06:41 03:45 07:30 Creatine Kinase < 20 L CK-MB (CK-2) Troponin I 0.406 0.162 11/02/19 11/02/19 11/02/19 03:56 04:30 08:20 Creatine Kinase 22 L 26 L CK-MB (CK-2) 2.33 Troponin I 0.123 11/02/19 09:15 Creatine Kinase CK-MB (CK-2) 2.25 Troponin I 0.149 Impressions: Ankle X-Ray 10/24/19 07:04 IMPRESSION: 1. Degenerative changes of the left ankle and midfoot. 2. Diffuse soft tissue swelling surrounding the left ankle. 3. No definite radiographic findings to suggest osteomyelitis. Foot X-Ray 10/24/19 07:05 IMPRESSION: 1. No definite acute osseous abnormality or definite findings to suggest acute osteomyelitis. 2. Degenerative changes of the midfoot and hindfoot. 3. Diffuse soft tissue swelling surrounding the left foot. There are questionable 1 cm soft tissue masses along the dorsal aspect of the left foot best appreciated on the lateral projection. Chest CT 10/26/19 00:00 IMPRESSION: CARDIOMEGALY. MODERATELY LARGE BILATERAL PLEURAL EFFUSIONS. BILATERAL LOWER LOBE AIRSPACE DISEASE MOST LIKELY DUE TO COMPRESSIVE ATELECTASIS. SUPERIMPOSED INFECTION MAY BE POSSIBLE. Lower Extremity CT 10/26/19 00:00 IMPRESSION: DIFFUSE SOFT TISSUE EDEMA WHICH COULD BE DUE TO CELLULITIS AND UNDERLYING SOFT TISSUE INFECTION. NO DISCRETE ABSCESS DEMONSTRATED. Abdomen/Pelvis CT 10/28/19 00:00 IMPRESSION: 1. Fqah-mk-idlvehfr bilateral effusions, right greater than left, with associated basilar atelectasis. 2. Small volume ascites with anasarca. No evidence of focal drainable abscess or other acute intra-abdominal/pelvic process. 3. Colonic diverticulosis. 4. Indeterminate density 4.2 cm renal lesion, likely proteinaceous cyst. Modified Barium Swallow 10/28/19 00:00 IMPRESSION: LARYNGEAL PENETRATION WITH RESIDUALS, HOWEVER NO DEFINITE ASPIRATION IDENTIFIED. PLEASE SEE SPEECH PATHOLOGIST REPORT FOR OTHER FINDINGS AND RECOMMENDATIONS. Renal Ultrasound 10/28/19 00:00 IMPRESSION: 1. No urinary obstruction or suspicious mass. Other findings as above. Chest X-Ray 10/29/19 06:00 IMPRESSION: NO SIGNIFICANT CHANGE. Assessment and Plan - Diagnosis (1) Infected stasis ulcer of lower extremity Is this a current diagnosis for this admission?: Yes Plan: Likely source of bacteremia as wound cultures also grew MSSA and Pseudomonas. Continue wound dressings frequently and topical mupirocin (2) Bacteremia Is this a current diagnosis for this admission?: Yes Plan: Blood cultures positive for Pseudomonas and MSSA Of note, last blood culture when patient was received transferred to [facility] was from 10/27/2019 which was still positive for MSSA but was negative for Pseudomon as. I have repeated blood cultures and will follow-up Continue Zosyn Patient will require antibiotics for at least 14 days from first negative blood culture. Check TTE (3) Persistent atrial fibrillation with RVR Is this a current diagnosis for this admission?: Yes Plan: Continue Eliquis Start on lower dose of Lopressor while monitoring blood pressure (4) Hypotension Qualifiers: Hypotension type: unspecified hypotension type Qualified Code(s): I95.9 - Hypotension, unspecified Is this a current diagnosis for this admission?: Yes Plan: Initially suspected to be septic shock Patient has been on stress dose hydrocortisone since 10/27/2019 and midodrine in the ICU. Uncertain if this was for just for septic shock or concern for adrenal insufficiency. No cortisol level done prior. Continue Midodrine I will maintain on stress hydrocortisone and wean later as blood pressure permits (5) Hypothermia Qualifiers: Encounter type: subsequent encounter Qualified Code(s): T68.XXXD - Hypothermia, subsequent encounter Is this a current diagnosis for this admission?: Yes Plan: Has been hypothermic around 95F throughout stay in the hospital. Required bearhugger overnight with improvement in Temp. (6) CKD (chronic kidney disease) Is this a current diagnosis for this admission?: Yes Plan: Monitor renal function and avoid nephrotoxic medications (7) HCAP (healthcare-associated pneumonia) Is this a current diagnosis for this admission?: Yes Plan: Patient received broad-spectrum antibiotics for over 7 days in the ICU for treatment of this (8) Hyperbilirubinemia Is this a current diagnosis for this admission?: Yes Plan: Patient has worsening hyperbilirubinemia predominantly direct bilirubin which will certainly need to be evaluated. Check stat RUQ ultrasound for biliary tree evaluation Transaminases are normal (9) Leg edema Is this a current diagnosis for this admission?: Yes Plan: Cautious diuresis given soft blood pressures and A. fib. Lasix changed to daily. Follow-up echo results. (10) Oropharyngeal dysphagia Is this a current diagnosis for this admission?: Yes Plan: Noted on MBBS with penetration but no clear aspiration. Patient only eating bites of his food. We will continue to encourage p.o. intake and discuss further aspiration risk with family. - Time Time Spent with patient: 15-24 minutes
[2019-11-02] MEDS: METOPROLOL TARTRATE 25 MG TABLET PO SCH ×2 (12:13→22:51)
--- NOTE | 2019-11-02 13:12 | RADIOLOGY REPORT (SQ) ---
EXAM DESCRIPTION: U/S ABDOMEN LIMITED W/O DOP COMPLETED DATE/TIME: 11/02/2019 12:41 pm REASON FOR STUDY: Worsening hyperbilirubinemia COMPARISON: CT abdomen pelvis 10/28/2019 Bilateral renal ultrasound 10/28/2019 TECHNIQUE: Dynamic and static grayscale images acquired of the abdomen and recorded on PACS. Additio nal selected color Doppler and spectral images recorded. LIMITATIONS: Body habitus, midline bowel gas FINDINGS: PANCREAS: Not visualized LIVER: No gross masses. No intrahepatic biliary ductal dilatation LIVER VASCULATURE: Normal directional flow of the main portal vein and hepatic veins. GALLBLADDER: No stones. Normal wall thickness. No pericholecystic fluid. ULTRASOUND-DETECTED REDDING'S SIGN: Negative. INTRAHEPATIC DUCTS AND COMMON DUCT: Common bile duct 5 mm at the anish hepatis. INFERIOR VENA CAVA: Not visualized AORTA: Not visualized RIGHT KIDNEY: No hydronephrosis PERITONEAL AND RIGHT PLEURAL SPACE: Moderate right upper quadrant ascites OTHER: No other significant findings. IMPRESSION: No biliary ductal dilatation. No gallstones. Moderate right upper quadrant ascites TECHNICAL DOCUMENTATION: JOB ID: [id number]- All Rights Reserved Reading location - IP/workstation name: [facility]
--- NOTE | 2019-11-02 14:11 | EKG REPORT ---
SEVERITY:- ABNORMAL ECG - ATRIAL FIBRILLATION, V-RATE 74-152 NONSPECIFIC INTRAVENTRICULAR CONDUCTION DELAY NONSPECIFIC ST DEPRESSION, ANTERIOR LEADS : Confirmed by: Keaton Reyes MD 02-Nov-2019 14:10:30
[2019-11-02] MEDS: PIPERACILLIN SODIUM/TAZOBACTAM 3.375 GM in NORMAL SALINE 100 ML IV SCH ×2 (17:13→23:04)
[2019-11-02 17:33] LABS: CREATINE KINASE MB 2.18 ng/mL (<4.55); TROPONIN I 0.127 ng/mL
[2019-11-03] MEDS: INSULIN REG, HUMAN 100 UNIT/ML 3 ML VIAL (PYX) SUBCUT SCH ×4 (00:01→18:54)
[2019-11-03] MEDS: HYDROCORTISONE SOD SUCCINATE INJ/PF 100 MG/2 ML SDV IV SCH ×3 (05:42→22:10)
[2019-11-03 06:18] LABS: HEMATOCRIT 31.4 % (37.9-51.0); HEMOGLOBIN 9.8 g/dL (13.5-17.0); MEAN CORPUSCULAR HEMOGLOBIN 23.2 pg (27.0-33.4); MEAN CORPUSCULAR HGB CONC 31.2 g/dL (32.0-36.0); MEAN CORPUSCULAR VOLUME 75 fl (80-97); RED BLOOD COUNT 4.21 10^6/uL (4.35-5.55); RED CELL DISTRIBUTION WIDTH 25.7 % (11.5-14.0); WHITE BLOOD COUNT 13.1 10^3/uL (4.0-10.5)
[2019-11-03 06:32] LABS: ALBUMIN 2.7 g/dL (3.5-5.0); ALKALINE PHOSPHATASE 104 U/L (38-126); ANION GAP 10 (5-19); ASPARTATE AMINO TRANSFERASE 58 U/L (17-59); BILIRUBIN,DIRECT 8.1 mg/dL (0.0-0.4); BILIRUBIN,TOTAL 10.8 mg/dL (0.2-1.3); BLOOD UREA NITROGEN 59 mg/dL (7-20); CALCIUM 8.1 mg/dL (8.4-10.2); CARBON DIOXIDE 28 mmol/L (22-30); CHLORIDE 101 mmol/L (98-107); GLUCOSE 143 mg/dL (75-110); POTASSIUM 4.3 mmol/L (3.6-5.0); TOTAL PROTEIN 5.7 g/dL (6.3-8.2)
[2019-11-03] MEDS: PANTOPRAZOLE SODIUM 20 MG TABLET.DR PO SCH (06:38)
[2019-11-03] MEDS: PIPERACILLIN SODIUM/TAZOBACTAM 3.375 GM in NORMAL SALINE 100 ML IV SCH ×3 (06:59→17:35)
[2019-11-03 08:24] LABS: PLATELET COUNT 92 10^3/uL (150-450)
[2019-11-03 08:29] LABS: ABSOLUTE LYMPHOCYTES# (MANUAL) 0.1 10^3/uL (0.5-4.7); ANISOCYTOSIS 3+; BASOPHILS % (MANUAL) 0 % (0-2); EOSINOPHILS % (MANUAL) 0 % (0-6); LYMPHOCYTES % (MANUAL) 1 % (13-45); METAMYELOCYTES % (MANUAL) 1 % (0-1); MONOCYTES % (MANUAL) 0 % (3-13); NUCLEATED RED BLOOD CELLS 3 /100 WBC (0); POLYCHROMASIA 1+; SEGMENTED NEUTROPHILS % (MAN) 98 % (42-78); TOTAL CELLS COUNTED 100; TOXIC GRANULATION 1+; TOXIC VACUOLATION PRESENT
[2019-11-03 08:30] LABS: HYPOCHROMASIA 1+; PLATELET COMMENT DECREASED; TARGET CELLS 1+; TEAR DROP CELLS SLIGHT
--- NOTE | 2019-11-03 08:42 | RADIOLOGY REPORT (SQ) ---
EXAM DESCRIPTION: CHEST SINGLE VIEW COMPLETED DATE/TIME: 11/03/2019 8:17 am REASON FOR STUDY: increase work in breathing COMPARISON: 10/29/2019 EXAM PARAMETERS: NUMBER OF VIEWS: One view. TECHNIQUE: Single frontal radiographic view of the chest acquired. RADIATION DOSE: NA LIMITATIONS: None. FINDINGS: LUNGS AND PLEURA: Mild to moderate bilateral pleural effusions, similar prior. Increased patchy opacities at the right lung base. Unchanged dense left lower lobe opacity. No pneumothorax. MEDIASTINUM AND HILAR STRUCTURES: No masses. Contour normal. HEART AND VASCULAR STRUCTURES: Enlarged, stable. Aortic atherosclerosis per BONES: Thoracic spondylosis. No acute findings. Degenerative changes at the shoulders. HARDWARE: Right internal jugular central venous catheter with tip at cavoatrial junction. Surgical c lips overlie neck. OTHER: No other significant finding. IMPRESSION: Bibasilar opacities, mildly worsened on the right. Grossly stable alip-nu-nfaipano bila teral effusions and enlarged cardiac silhouette. TECHNICAL DOCUMENTATION: JOB ID: [id number] [employer]- All Rights Reserved Reading location - IP/workstation name: [email or web address]
[2019-11-03 09:50] LABS: ARTERIAL BLOOD BASE EXCESS 2.4 mmol/L; ARTERIAL BLOOD FIO2 4L; ARTERIAL BLOOD H2CO3 1.21 mmol/L (1.05-1.35); ARTERIAL BLOOD HCO3 26.7 mmol/L (20-24); ARTERIAL BLOOD O2 SATURATION 97.5 % (94-98); ARTERIAL BLOOD PCO2 40.3 mmHg (35-45); ARTERIAL BLOOD PH 7.44 (7.35-7.45); ARTERIAL BLOOD PO2 95.8 mmHg (80-100); ARTERIAL BLOOD TOTAL CO2 27.9 mmol/L (23-27)
[2019-11-03] MEDS ORDERED: MEROPENEM 1 GM in NORMAL SALINE 50 ML IV SCH (10:00)
[2019-11-03] MEDS ORDERED: FUROSEMIDE INJ/PF 20 MG/2 ML SDV IV SCH (10:00)
[2019-11-03] MEDS: MIDODRINE HCL 5 MG TABLET PO SCH ×3 (11:27→17:35)
[2019-11-03] MEDS: TAMSULOSIN HCL 0.4 MG CAP.SR.24H PO SCH (11:28)
[2019-11-03] MEDS: POTASSIUM CHLORIDE 20 MEQ PACKET PO SCH (11:28)
[2019-11-03] MEDS: METOPROLOL TARTRATE 25 MG TABLET PO SCH ×2 (11:28→22:10)
[2019-11-03] MEDS: MUPIROCIN 2% OINTMENT 22 GM TP SCH ×2 (11:43→17:36)
--- NOTE | 2019-11-03 16:55 | PDOC PROGRESS REPORT ---
Subjective Progress Note for:: 11/03/19 Subjective:: Patient still not eating much. Endorses SOB. Spoke with patient's today who states that she she has been on patient for over 60 years and he would definitely not want to be resuscitated. She would like to make patient DNR at this time. She is also okay with her daughter Bobby Delatorre making decisions on patient's behalf. Reason For Visit: SEPSIS,LEFT LOWER EXTREMITY WOUND, HISTORY OF Physical Exam Vital Signs: Temp Pulse Resp BP Pulse Ox 97.3 F 77 14 94/68 L 100 11/03/19 15:39 11/03/19 15:39 11/03/19 15:39 11/03/19 15:39 11/03/19 15:39 Intake & Output 11/02/19 11/03/19 11/04/19 06:59 06:59 06:59 Intake Total 949 1820 440 Output Total 2215 1325 Balance -1266 495 440 Weight 110.4 kg 116.4 kg 116.4 kg General appearance: PRESENT: no acute distress, cooperative Neck exam: PRESENT: JVD Respiratory exam: PRESENT: crackles, symmetrical, unlabored. ABSENT: tachypnea, wheezes Cardiovascular exam: PRESENT: +S1, +S2 GI/Abdominal exam: PRESENT: normal bowel sounds, soft. ABSENT: rebound, rigid, tenderness Neurological exam: PRESENT: alert, awake, oriented to person, oriented to place. ABSENT: oriented to time, oriented to situation Results Laboratory Results: 11/03/19 05:40 11/03/19 05:40 11/03/19 11/03/19 11/03/19 05:40 05:40 09:30 WBC 13.1 H RBC 4.21 L Hgb 9.8 L Hct 31.4 L MCV 75 L MCH 23.2 L MCHC 31.2 L RDW 25.7 H Plt Count 92 L Seg Neutrophils % Not Reportable Carbonic Acid 1.21 HCO3/H2CO3 Ratio 22:1 ABG pH 7.44 ABG pCO2 40.3 ABG pO2 95.8 ABG HCO3 26.7 H ABG O2 Saturation 97.5 ABG Base Excess 2.4 FiO2 4L Sodium 138.9 Potassium 4.3 Chloride 101 Carbon Dioxide 28 Anion Gap 10 BUN 59 H Creatinine 1.46 H Est GFR ( Amer) 55 L Glucose 143 H Calcium 8.1 L Total Bilirubin 10.8 H AST 58 Alkaline Phosphatase 104 Total Protein 5.7 L Albumin 2.7 L 10/24/19 10/27/19 11/01/19 06:41 03:45 07:30 Creatine Kinase < 20 L CK-MB (CK-2) Troponin I 0.406 0.162 11/02/19 11/02/19 11/02/19 03:56 04:30 08:20 Creatine Kinase 22 L 26 L CK-MB (CK-2) 2.33 Troponin I 0.123 11/02/19 11/02/19 11/02/19 09:15 16:45 16:45 Creatine Kinase 45 L CK-MB (CK-2) 2.25 2.18 Troponin I 0.149 0.127 Impressions: Ankle X-Ray 10/24/19 07:04 IMPRESSION: 1. Degenerative changes of the left ankle and midfoot. 2. Diffuse soft tissue swelling surrounding the left ankle. 3. No definite radiographic findings to suggest osteomyelitis. Foot X-Ray 10/24/19 07:05 IMPRESSION: 1. No definite acute osseous abnormality or definite findings to suggest acute osteomyelitis. 2. Degenerative changes of the midfoot and hindfoot. 3. Diffuse soft tissue swelling surrounding the left foot. There are questionable 1 cm soft tissue masses along the dorsal aspect of the left foot best appreciated on the lateral projection. Chest CT 10/26/19 00:00 IMPRESSION: CARDIOMEGALY. MODERATELY LARGE BILATERAL PLEURAL EFFUSIONS. BILATERAL LOWER LOBE AIRSPACE DISEASE MOST LIKELY DUE TO COMPRESSIVE ATELECTASIS. SUPERIMPOSED INFECTION MAY BE POSSIBLE. Lower Extremity CT 10/26/19 00:00 IMPRESSION: DIFFUSE SOFT TISSUE EDEMA WHICH COULD BE DUE TO CELLULITIS AND UNDERLYING SOFT TISSUE INFECTION. NO DISCRETE ABSCESS DEMONSTRATED. Abdomen/Pelvis CT 10/28/19 00:00 IMPRESSION: 1. Sypo-aj-pcupnkxm bilateral effusions, right greater than left, with associated basilar atelectasis. 2. Small volume ascites with anasarca. No evidence of focal drainable abscess or other acute intra-abdominal/pelvic process. 3. Colonic diverticulosis. 4. Indeterminate density 4.2 cm renal lesion, likely proteinaceous cyst. Modified Barium Swallow 10/28/19 00:00 IMPRESSION: LARYNGEAL PENETRATION WITH RESIDUALS, HOWEVER NO DEFINITE ASPIRATION IDENTIFIED. PLEASE SEE SPEECH PATHOLOGIST REPORT FOR OTHER FINDINGS AND RECOMMENDATIONS. Renal Ultrasound 10/28/19 00:00 IMPRESSION: 1. No urinary obstruction or suspicious mass. Other findings as above. Abdomen Ultrasound 11/02/19 00:00 IMPRESSION: No biliary ductal dilatation. No gallstones. Moderate right upper quadrant ascites Chest X-Ray 11/03/19 00:00 IMPRESSION: Bibasilar opacities, mildly worsened on the right. Grossly stable uhvu-[id number] bilateral effusions and enlarged cardiac silhouette. Assessment and Plan - Diagnosis (1) Infected stasis ulcer of lower extremity Is this a current diagnosis for this admission?: Yes Plan: Likely source of bacteremia as wound cultures also grew MSSA and Pseudomonas. Continue wound dressings frequently and topical mupirocin (2) Bacteremia Is this a current diagnosis for this admission?: Yes Plan: Blood cultures positive for Pseudomonas and MSSA Of note, last blood culture when patient was received transferred to [facility] was from 10/27/2019 which was still positive for MSSA but was negative for Pseudomonas. Repeat blood cultures are negative over 48 hours Continue Zosyn Patient will require antibiotics for at least 14 days from first negative blood culture. (3) Persistent atrial fibrillation with RVR Is this a current diagnosis for this admission?: Yes Plan: Continue Eliquis lower dose of Lopressor while monitoring blood pressure (4) Hypotension Qualifiers: Hypotension type: unspecified hypotension type Qualified Code(s): I95.9 - Hypotension, unspecified Is this a current diagnosis for this admission?: Yes Plan: Initially suspected to be septic shock Patient has been on stress dose hydrocortisone since 10/27/2019 and midodrine in the ICU. Uncertain if this was for just for septic shock or concern for adrenal insufficiency. No cortisol level done prior. Continue Midodrine I will maintain on stress hydrocortisone and wean later as blood pressure permits (5) Hypothermia Qualifiers: Encounter type: subsequent encounter Qualified Code(s): T68.XXXD - Hypothermia, subsequent encounter Is this a current diagnosis for this admission?: Yes Plan: Resolved (6) CKD (chronic kidney disease) Is this a current diagnosis for this admission?: Yes Plan: Monitor renal function and avoid nephrotoxic medications (7) HCAP (healthcare-associated pneumonia) Is this a current diagnosis for this admission?: Yes (8) Hyperbilirubinemia Is this a current diagnosis for this admission?: Yes Plan: Patient has worsening hyperbilirubinemia predominantly direct bilirubin which will certainly need to be evaluated. ruq us showing no evidence of biliary tract obstruction. Dr. Perez consulted Transaminases are normal (9) Leg edema Is this a current diagnosis for this admission?: Yes Plan: Cautious diuresis given soft blood pressures and A. fib. Lasix daily. (10) Oropharyngeal dysphagia Is this a current diagnosis for this admission?: Yes Plan: Noted on MBBS with penetration but no clear aspiration. Patient only eating bites of his food. We will continue to encourage p.o. intake. - Plan Summary Summary: Made DNR DNI - Time Time Spent with patient: Less than 15 minutes
[2019-11-04] MEDS: PIPERACILLIN SODIUM/TAZOBACTAM 3.375 GM in NORMAL SALINE 100 ML IV SCH ×4 (00:56→17:20)
[2019-11-04] MEDS: INSULIN REG, HUMAN 100 UNIT/ML 3 ML VIAL (PYX) SUBCUT SCH ×4 (01:50→17:32)
[2019-11-04] MEDS: PANTOPRAZOLE SODIUM 20 MG TABLET.DR PO SCH (05:28)
[2019-11-04] MEDS: HYDROCORTISONE SOD SUCCINATE INJ/PF 100 MG/2 ML SDV IV SCH ×3 (05:28→21:14)
[2019-11-04 06:33] LABS: HEMATOCRIT 31.9 % (37.9-51.0); HEMOGLOBIN 9.6 g/dL (13.5-17.0); MEAN CORPUSCULAR HEMOGLOBIN 23.1 pg (27.0-33.4); MEAN CORPUSCULAR HGB CONC 30.2 g/dL (32.0-36.0); MEAN CORPUSCULAR VOLUME 76 fl (80-97); RED BLOOD COUNT 4.18 10^6/uL (4.35-5.55); RED CELL DISTRIBUTION WIDTH 26.4 % (11.5-14.0); WHITE BLOOD COUNT 13.6 10^3/uL (4.0-10.5)
[2019-11-04 06:55] LABS: PLATELET COUNT 87 10^3/uL (150-450)
[2019-11-04 06:58] LABS: ALBUMIN 2.5 g/dL (3.5-5.0); ALKALINE PHOSPHATASE 122 U/L (38-126); ANION GAP 12 (5-19); ASPARTATE AMINO TRANSFERASE 67 U/L (17-59); BILIRUBIN,DIRECT 10.1 mg/dL (0.0-0.4); BILIRUBIN,TOTAL 12.3 mg/dL (0.2-1.3); BLOOD UREA NITROGEN 60 mg/dL (7-20); CALCIUM 7.5 mg/dL (8.4-10.2); CARBON DIOXIDE 26 mmol/L (22-30); CHLORIDE 106 mmol/L (98-107); GLUCOSE 190 mg/dL (75-110); POTASSIUM 3.8 mmol/L (3.6-5.0); TOTAL PROTEIN 5.2 g/dL (6.3-8.2)
[2019-11-04 07:06] LABS: ABSOLUTE LYMPHOCYTES# (MANUAL) 0.1 10^3/uL (0.5-4.7); ABSOLUTE MONOCYTES # (MANUAL) 0.5 10^3/uL (0.1-1.4); BASOPHILS % (MANUAL) 0 % (0-2); EOSINOPHILS % (MANUAL) 0 % (0-6); LYMPHOCYTES % (MANUAL) 1 % (13-45); MONOCYTES % (MANUAL) 4 % (3-13); NUCLEATED RED BLOOD CELLS 2 /100 WBC (0); SEGMENTED NEUTROPHILS % (MAN) 95 % (42-78); TOTAL CELLS COUNTED 100
[2019-11-04 07:17] LABS: ANISOCYTOSIS 3+; OVALOCYTES SLIGHT; POIKILOCYTOSIS 3+; TARGET CELLS 3+; TEAR DROP CELLS SLIGHT; TOXIC GRANULATION SLIGHT
[2019-11-04 07:18] LABS: PLATELET COMMENT DECREASED
[2019-11-04] MEDS: FUROSEMIDE INJ/PF 20 MG/2 ML SDV IV SCH ×2 (10:16→17:33)
[2019-11-04] MEDS: POTASSIUM CHLORIDE 20 MEQ PACKET PO SCH (10:18)
[2019-11-04] MEDS: TAMSULOSIN HCL 0.4 MG CAP.SR.24H PO SCH (10:18)
[2019-11-04] MEDS: MIDODRINE HCL 5 MG TABLET PO SCH ×3 (10:18→17:33)
[2019-11-04] MEDS: METOPROLOL TARTRATE 25 MG TABLET PO SCH ×2 (10:20→21:15)
[2019-11-04] MEDS: HEPARIN SOD (PORCINE) 5,000 UNIT/ML 1 ML VIAL SUBCUT SCH ×2 (10:21→21:15)
[2019-11-04] MEDS: MUPIROCIN 2% OINTMENT 22 GM TP SCH ×2 (10:22→17:25)
--- NOTE | 2019-11-04 12:48 | PDOC PROGRESS REPORT ---
Subjective Progress Note for:: 11/04/19 Subjective:: Complicated patient with multiple active medical issues. More delirious today so not volunteering much. Reason For Visit: SEPSIS,LEFT LOWER EXTREMITY WOUND, HISTORY OF Physical Exam Vital Signs: Temp Pulse Resp BP Pulse Ox 97.3 F 70 18 90/51 L 83 L 11/04/19 07:46 11/04/19 07:46 11/04/19 07:46 11/04/19 07:46 11/04/19 07:46 Intake & Output 11/03/19 11/04/19 11/05/19 06:59 06:59 06:59 Intake Total 1820 760 100 Output Total 1325 535 Balance 495 225 100 Weight 116.4 kg 115.3 kg General appearance: PRESENT: no acute distress Neck exam: ABSENT: JVD Respiratory exam: PRESENT: crackles, rhonchi, symmetrical, unlabored. ABSENT: tachypnea, wheezes Cardiovascular exam: PRESENT: RRR, +S1, +S2. ABSENT: tachycardia GI/Abdominal exam: PRESENT: normal bowel sounds, soft. ABSENT: rebound, rigid, tenderness Extremities exam: PRESENT: other - Bilateral lower extremity 2+ edema with v enostasis ulcer in left lower extremity Neurological exam: PRESENT: alert, awake, oriented to person. ABSENT: oriented to place, oriented to time, oriented to situation Results Laboratory Results: 11/04/19 05:20 11/04/19 05:20 11/04/19 11/04/19 05:20 05:20 WBC 13.6 H RBC 4.18 L Hgb 9.6 L Hct 31.9 L MCV 76 L MCH 23.1 L MCHC 30.2 L RDW 26.4 H Plt Count 87 L Seg Neutrophils % Not Reportable Sodium 143.8 Potassium 3.8 Chloride 106 Carbon Dioxide 26 Anion Gap 12 BUN 60 H Creatinine 1.58 H Est GFR ( Amer) 51 L Glucose 190 H Calcium 7.5 L Total Bilirubin 12.3 H AST 67 H Alkaline Phosphatase 122 Total Protein 5.2 L Albumin 2.5 L 10/24/19 10/27/19 11/01/19 06:41 03:45 07:30 Creatine Kinase < 20 L CK-MB (CK-2) Troponin I 0.406 0.162 11/02/19 11/02/19 11/02/19 03:56 04:30 08:20 Creatine Kinase 22 L 26 L CK-MB (CK-2) 2.33 Troponin I 0.123 11/02/19 11/02/19 11/02/19 09:15 16:45 16:45 Creatine Kinase 45 L CK-MB (CK-2) 2.25 2.18 Troponin I 0.149 0.127 Impressions: Ankle X-Ray 10/24/19 07:04 IMPRESSION: 1. Degenerative changes of the left ankle and midfoot. 2. Diffuse soft tissue swelling surrounding the left ankle. 3. No definite radiographic findings to suggest osteomyelitis. Foot X-Ray 10/24/19 07:05 IMPRESSION: 1. No definite acute osseous abnormality or definite findings to suggest acute osteomyelitis. 2. Degenerative changes of the midfoot and hindfoot. 3. Diffuse soft tissue swelling surrounding the left foot. There are questionable 1 cm soft tissue masses along the dorsal aspect of the left foot best appreciated on the lateral projection. Chest CT 10/26/19 00:00 IMPRESSION: CARDIOMEGALY. MODERATELY LARGE BILATERAL PLEURAL EFFUSIONS. BILATERAL LOWER LOBE AIRSPACE DISEASE MOST LIKELY DUE TO COMPRESSIVE AT ELECTASIS. SUPERIMPOSED INFECTION MAY BE POSSIBLE. Lower Extremity CT 10/26/19 00:00 IMPRESSION: DIFFUSE SOFT TISSUE EDEMA WHICH COULD BE DUE TO CELLULITIS AND UNDERLYING SOFT TISSUE INFECTION. NO DISCRETE ABSCESS DEMONSTRATED. Abdomen/Pelvis CT 10/28/19 00:00 IMPRESSION: 1. Mgoi-gf-vletxouw bilateral effusions, right greater than left, with associated basilar atelectasis. 2. Small volume ascites with anasarca. No evidence of focal drainable abscess or other acute intra-abdominal/pelvic process. 3. Colonic diverticulosis. 4. Indeterminate density 4.2 cm renal lesion, likely proteinaceous cyst. Modified Barium Swallow 10/28/19 00:00 IMPRESSION: LARYNGEAL PENETRATION WITH RESIDUALS, HOWEVER NO DEFINITE ASPIRATION IDENTIFIED. PLEASE SEE SPEECH PATHOLOGIST REPORT FOR OTHER FINDINGS AND RECOMMENDATIONS. Renal Ultrasound 10/28/19 00:00 IMPRESSION: 1. No urinary obstruction or suspicious mass. Other findings as above. Abdomen Ultrasound 11/02/19 00:00 IMPRESSION: No biliary ductal dilatation. No gallstones. Moderate right upper quadrant ascites Chest X-Ray 11/03/19 00:00 IMPRESSION: Bibasilar opacities, mildly worsened on the right. Grossly stable [id number] bilateral effusions and enlarged cardiac silhouette. Assessment and Plan - Diagnosis (1) Infected stasis ulcer of lower extremity Is this a current diagnosis for this admission?: Yes Plan: Likely source of bacteremia as wound cultures also grew MSSA and Pseudomonas. Continue wound dressings frequently, leg elevation and topical mupirocin (2) Bacteremia Is this a current diagnosis for this admission?: Yes Plan: Blood cultures positive for Pseudomonas and MSSA Of note, last blood culture when patient was received transferred to [facility] was from 10/27/2019 which was still positive for MSSA but was the first cultures negative for Pseudomonas. Patient will require 10 days of antibiotic treatment for Pseudomonas bacteremia since negative BCx on 10/27 and 14 days therapy for MSSA bacteremia since first negative on 11/01/19. Avoid p.o. fluoroquinolones given patient's significant debility and age putting him at high risk for tendinopathy. As such, I will continue Zosyn until 11/06/19 then change to PO abx to complete treatment of MSSA till 11/15/2019 (3) Persistent atrial fibrillation with RVR Is this a current diagnosis for this admission?: Yes Plan: Rate controlled at the moment. Continue Eliquis and low-dose metoprolol (4) Hypotension Qualifiers: Qualified Code(s): I95.9 - Hypotension, unspecified Is this a current diagnosis for this admission?: Yes Plan: Initially suspected to be septic shock Patient has been on stress dose hydrocortisone since 10/27/2019 and midodrine in the ICU. Uncertain if this was for just for septic shock or concern for adrenal insuff iciency. No cortisol level done prior. Continue Midodrine I will maintain on stress hydrocortisone given persistent of soft blood pressures and wean later as blood pressure permits (5) HCAP (healthcare-associated pneumonia) Is this a current diagnosis for this admission?: Yes Plan: Patient received broad-spectrum antibiotics for over 7 days in the ICU for treatment of this (6) Hyperbilirubinemia Is this a current diagnosis for this admission?: Yes Plan: Patient has worsening cholestasis with hyperbilirubinemia predominantly direct bilirubin ruq us showing no evidence of biliary tract obstruction. Dr. Perez consulted Transaminases are normal (7) Leg edema Is this a current diagnosis for this admission?: Yes Plan: Cautious diuresis given soft blood pressures and A. fib. Lasix twice a day. Monitor blood pressure and electrolytes. (8) Oropharyngeal dysphagia Is this a current diagnosis for this admission?: Yes Plan: Noted on MBBS with penetration but no clear aspiration. Patient only eating bites of his food. We will continue to encourage p.o. intake. (9) Encephalopathy Is this a current diagnosis for this admission?: Yes Plan: Likely secondary to multiple comorbid active medical conditions We will continue to monitor mental status and treat his active issues. Palliative care consulted - Plan Summary Summary: Made DNR DNI Ultimately patient has several medical conditions that are quite active. These include bacteremia, infected leg wounds, recent septic shock, hypotension maintained on p.o. pressor midodrine and stress dose steroids, Pneumonia, dysphagia with poor food intake and increased risk for aspiration which could lead to more pneumonias, atrial fibrillation often going into RVR.currently rate is controlled, worsening hyperbilirubinemia/cholestasis and encephalopathy. Ultimately, given patient's significant physically debilitated state in combination with all these issues, patient could likely be better served by less aggressive medical therapy and more of palliative care. I have consulted palliative care and will also have discussions with patient's family regarding this. - Time Time Spent with patient: 15-24 minutes
--- NOTE | 2019-11-04 12:50 | PDOC CONSULTATION ---
Consultation Consult Date: 11/04/19 Provider Consulted: ARTURO BLANCHARD Consult reason:: abnormal LFT History of Present Illness Admission Date/PCP: 10/24/19 10:27 [facility] History of Present Illness: JUANY OLIVERA is a 84 year old male asked to see this patent who was admitted initially to the ICU for sepsis and hypotension once transferred has been noted to have elevated LFT's with increased in the total bilirubin as well as the direct portion ultrasound and CT scan does not show any obstruction in the bile ducts there is no evidence of pancreatitis initially no LFT's were drawn so it is hard to say when the abnormality started to occur from her labs it is noted that sometime between 10/27 and 10/29 it started to increase no hemolysis is noted patient had initially noted to have an elevated alk phos but transaminases have been normal GI consult is requested patient is currently DNR has reduced creatinine clearance as well Past Medical History Cardiac Medical History: Reports: Atrial Fibrillation, Myocardial Infarction, Hypertension Pulmonary Medical History: Denies: Asthma Neurological Medical History: Denies: Seizures GI Medical History: Denies: Hepatitis, Hiatal Hernia Hematology: Denies: Anemia, Sickle Cell Disease Past Surgical History Past Surgical History: Denies: Pacemaker Social History Smoking Status: Never Smoker Frequency of Alcohol Use: None Hx Recreational Drug Use: No Hx Prescription Drug Abuse: No - Advance Directive Resuscitation Status: Do Not Resuscitate Family History Family History: Reviewed & Not Pertinent Parental Family History Reviewed: Yes Children Family History Reviewed: Unknown Sibling(s) Family History Reviewed.: Unknown Medication/Allergy Home Medications: Apixaban [Eliquis 2.5 mg Tablet] 2.5 mg PO BID 10/24/19 Atenolol [Tenormin] 25 mg PO BID 10/24/19 Furosemide [Lasix 20 mg Tablet] 20 mg PO QAM 10/24/19 Tamsulosin HCl [Flomax 0.4 mg Cap.sr] 0.4 mg PO DAILY 10/24/19 Allergies/Adverse Reactions: No Known Allergies Allergy (Verified 10/24/19 06:50) Review of Systems Constitutional: ABSENT: fever(s), headache(s), night sweats Eyes: ABSENT: visual disturbances Nose, Mouth, and Throat: ABSENT: mouth pain, sore throat Cardiovascular: ABSENT: orthropnea, palpitations Respiratory: ABSENT: hemoptysis Gastrointestinal: ABSENT: diarrhea, hematemesis, hematochezia Genitourinary: ABSENT: dysuria, hematuria Musculoskeletal: ABSENT: joint swelling Integumentary: ABSENT: pruritus Neurological: ABSENT: syncope, tingling, tremor(s), vertigo Endocrine: ABSENT: polydipsia, polyphagia, polyuria Hematologic/Lymphatic: ABSENT: easy bruising Physical Exam Vital Signs: Temp Pulse Resp BP Pulse Ox 97.3 F 70 18 90/51 L 83 L 11/04/19 07:46 11/04/19 07:46 11/04/19 07:46 11/04/19 07:46 11/04/19 07:46 Intake & Output 11/03/19 11/04/19 11/05/19 06:59 06:59 06:59 Intake Total 1820 760 100 Output Total 1325 535 Balance 495 225 100 Weight 116.4 kg 115.3 kg General appearance: PRESENT: no acute distress Head exam: PRESENT: normocephalic Eye exam: PRESENT: EOMI, PERRLA, scleral icterus. ABSENT: nystagmus Mouth exam: PRESENT: moist, neck supple Throat exam: ABSENT: tonsillar exudate, tonsillogmegaly Neck exam: ABSENT: meningismus, tenderness, thyromegaly Respiratory exam: PRESENT: symmetrical, unlabored. ABSENT: tachypnea, wheezes Cardiovascular exam: PRESENT: irregular rhythm, +S2. ABSENT: RRR GI/Abdominal exam: PRESENT: soft. ABSENT: rebound, rigid, tenderness Extremities exam: ABSENT: joint swelling Musculoskeletal exam: PRESENT: full ROM Neurological exam: PRESENT: oriented to situation, CN II-XII grossly intact Focused psych exam: ABSENT: restlessness Skin exam: ABSENT: mottled, pallor, urticaria, vesicles Results Laboratory Results: 11/04/19 05:20 11/04/19 05:20 11/04/19 11/04/19 05:20 05:20 WBC 13.6 H RBC 4.18 L Hgb 9.6 L Hct 31.9 L MCV 76 L MCH 23.1 L MCHC 30.2 L RDW 26.4 H Plt Count 87 L Seg Neutrophils % Not Reportable Sodium 143.8 Potassium 3.8 Chloride 106 Carbon Dioxide 26 Anion Gap 12 BUN 60 H Creatinine 1.58 H Est GFR ( Amer) 51 L Glucose 190 H Calcium 7.5 L Total Bilirubin 12.3 H AST 67 H Alkaline Phosphatase 122 Total Protein 5.2 L Albumin 2.5 L 10/24/19 10/27/19 11/01/19 06:41 03:45 07:30 Creatine Kinase < 20 L CK-MB (CK-2) Troponin I 0.406 0.162 11/02/19 11/02/19 11/02/19 03:56 04:30 08:20 Creatine Kinase 22 L 26 L CK-MB (CK-2) 2.33 Troponin I 0.123 11/02/19 11/02/19 11/02/19 09:15 16:45 16:45 Creatine Kinase 45 L CK-MB (CK-2) 2.25 2.18 Troponin I 0.149 0.127 Impressions: Ankle X-Ray 10/24/19 07:04 IMPRESSION: 1. Degenerative changes of the left ankle and midfoot. 2. Diffuse soft tissue swelling surrounding the left ankle. 3. No definite radiographic findings to suggest osteomyelitis. Foot X-Ray 10/24/19 07:05 IMPRESSION: 1. No definite acute osseous abnormality or definite findings to suggest acute osteomyelitis. 2. Degenerative changes of the midfoot and hindfoot. 3. Diffuse soft tissue swelling surrounding the left foot. There are questionable 1 cm soft tissue masses along the dorsal aspect of the left foot best appreciated on the lateral projection. Chest CT 10/26/19 00:00 IMPRESSION: CARDIOMEGALY. MODERATELY LARGE BILATERAL PLEURAL EFFUSIONS. BILATERAL LOWER LOBE AIRSPACE DISEASE MOST LIKELY DUE TO COMPRESSIVE ATE LECTASIS. SUPERIMPOSED INFECTION MAY BE POSSIBLE. Lower Extremity CT 10/26/19 00:00 IMPRESSION: DIFFUSE SOFT TISSUE EDEMA WHICH COULD BE DUE TO CELLULITIS AND UNDERLYING SOFT TISSUE INFECTION. NO DISCRETE ABSCESS DEMONSTRATED. Abdomen/Pelvis CT 10/28/19 00:00 IMPRESSION: 1. Oddw-fl-ktygcxeq bilateral effusions, right greater than left, with associated basilar atelectasis. 2. Small volume ascites with anasarca. No evidence of focal drainable abscess or other acute intra-abdominal/pelvic process. 3. Colonic diverticulosis. 4. Indeterminate density 4.2 cm renal lesion, likely proteinaceous cyst. Modified Barium Swallow 10/28/19 00:00 IMPRESSION: LARYNGEAL PENETRATION WITH RESIDUALS, HOWEVER NO DEFINITE ASPIRATION IDENTIFIED. PLEASE SEE SPEECH PATHOLOGIST REPORT FOR OTHER FINDINGS AND RECOMMENDATIONS. Renal Ultrasound 10/28/19 00:00 IMPRESSION: 1. No urinary obstruction or suspicious mass. Other findings as above. Abdomen Ultrasound 11/02/19 00:00 IMPRESSION: No biliary ductal dilatation. No gallstones. Moderate right upper quadrant ascites Chest X-Ray 11/03/19 00:00 IMPRESSION: Bibasilar opacities, mildly worsened on the right. Grossly stable rjxs-av-qnbhltzh bilateral effusions and enlarged cardiac silhouette. Assessment & Plan - Diagnosis (1) Hyperbilirubinemia Is this a current diagnosis for this admission?: Yes Plan: no evidence of biliary obstruction or hemolysis noted patient may have had initial liver damage based on ischemia and now has been converted to delta bilirubin and since has poor creatinine clearance , has persisted check hepatitis profile, BUSHRA AMA also check CA 19-9 may need liver biopsy but with current status of DNR, ? of liver biopsy continue to follow keep hydration status optimal avoid hepatotoxic medications - Time Time Spent: 50 to 70 Minutes
[2019-11-04] MEDS ORDERED: HYDROCORTISONE SOD SUCCINATE INJ/PF 100 MG/2 ML SDV IV SCH (14:00)
--- NOTE | 2019-11-04 18:31 | ADVANCED CARE ---
- Diagnosis (2) Bacteremia Diagnosis Current: Yes (4) Hypotension Diagnosis Current: Yes (8) Oropharyngeal dysphagia Diagnosis Current: Yes (9) Encephalopathy Diagnosis Current: Yes Attendance: Patient, patient's Thelma, daughter Bobby and Bobby's niece Resuscitation Status: Do Not Resuscitate Discussion: I discussed patient's multiple comorbid active medical problems with patient. Went to a thorough description of patient's current medical issues and patient's hospital course patient's current state. These include bacteremia, infected leg wounds, recent septic shock, hypotension maintained on p.o. midodrine and stress dose steroids, Pneumonia, dysphagia with poor food intake and increased risk for aspiration which could lead to more pneumonias, atrial fibrillation often going into RVR occasionally though currently rate is well controlled, worsening hyperbilirubinemia/cholestasis and encephalopathy. Ultimately, given patient's significant physically debilitated state in combination with all these issues, patient could likely be better served by less aggressive medical therapy and more of palliative care. They are open to consulting further with palliative care and I have discussed the case with palliative care worker Smita who will also be reaching out to family as well. Patient is DNR. Family opting to continue with current medical treatment as of now but would like some time to think on it and discuss further while monitoring to see if patient starts to eat more.
[2019-11-05] MEDS: PIPERACILLIN SODIUM/TAZOBACTAM 3.375 GM in NORMAL SALINE 100 ML IV SCH ×3 (00:13→13:14)
[2019-11-05] MEDS: INSULIN REG, HUMAN 100 UNIT/ML 3 ML VIAL (PYX) SUBCUT SCH ×3 (00:13→13:14)
[2019-11-05] MEDS: HYDROCORTISONE SOD SUCCINATE INJ/PF 100 MG/2 ML SDV IV SCH (06:07)
[2019-11-05] MEDS: PANTOPRAZOLE SODIUM 20 MG TABLET.DR PO SCH (06:07)
[2019-11-05 08:48] LABS: HEMATOCRIT 31.1 % (37.9-51.0); HEMOGLOBIN 9.6 g/dL (13.5-17.0); MEAN CORPUSCULAR HEMOGLOBIN 23.4 pg (27.0-33.4); MEAN CORPUSCULAR HGB CONC 30.7 g/dL (32.0-36.0); MEAN CORPUSCULAR VOLUME 76 fl (80-97); RED BLOOD COUNT 4.09 10^6/uL (4.35-5.55); RED CELL DISTRIBUTION WIDTH 26.3 % (11.5-14.0)
[2019-11-05 09:07] LABS: PLATELET COUNT 70 10^3/uL (150-450)
[2019-11-05 09:09] LABS: ABSOLUTE LYMPHOCYTES# (MANUAL) 0.2 10^3/uL (0.5-4.7); ABSOLUTE MONOCYTES # (MANUAL) 0.3 10^3/uL (0.1-1.4); BASOPHILS % (MANUAL) 0 % (0-2); EOSINOPHILS % (MANUAL) 0 % (0-6); LYMPHOCYTES % (MANUAL) 1 % (13-45); MONOCYTES % (MANUAL) 2 % (3-13); SEGMENTED NEUTROPHILS % (MAN) 97 % (42-78); TOTAL CELLS COUNTED 100
[2019-11-05 09:13] LABS: ANISOCYTOSIS 3+; PLATELET COMMENT DECREASED; POIKILOCYTOSIS 4+
[2019-11-05 09:14] LABS: TARGET CELLS 4+
--- NOTE | 2019-11-05 09:28 | PDOC CONSULTATION ---
Consultation Consult Date: 11/05/19 Attending physician:: RAHUL SWEET Provider Consulted: RANDELL TANG Consult reason:: Worsening thrombocytopenia History of Present Illness Admission Date/PCP: 10/24/19 10:[facility] Patient complains of: Thrombocytopenia History of Present Illness: JUANY OLIVERA is a 84 year old male worsening thrombocytopenia after admission, upon admission patient is having severe sepsis, infection, was on broad-spectrum antibiotics and ICU stay, now infection improved but platelet count worsening. I reviewed CBC platelet count down to the 60s but patient is not actively bleeding. INR however is elevated. He is very demented, mental status is not improved and functional status is very poor. Not taking in much p.o. and nursing tells me they are going to have a palliative care discussion with family. Past Medical History Cardiac Medical History: Reports: Atrial Fibrillation, Myocardial Infarction, Hypertension Pulmonary Medical History: Denies: Asthma Neurological Medical History: Denies: Seizures GI Medical History: Denies: Hepatitis, Hiatal Hernia Hematology: Denies: Anemia, Sickle Cell Disease Past Surgical History Past Surgical History: Denies: Pacemaker Social History Information Source: Patient Smoking Status: Never Smoker Frequency of Alcohol Use: None Hx Recreational Drug Use: No Hx Prescription Drug Abuse: No - Advance Directive Resuscitation Status: Do Not Resuscitate Family History Family History: Reviewed & Not Pertinent Parental Family History Reviewed: Yes Children Family History Reviewed: Yes Sibling(s) Family History Reviewed.: Yes Medication/Allergy Home Medications: Apixaban [Eliquis 2.5 mg Tablet] 2.5 mg PO BID 10/24/19 Atenolol [Tenormin] 25 mg PO BID 10/24/19 Furosemide [Lasix 20 mg Tablet] 20 mg PO QAM 10/24/19 Tamsulosin HCl [Flomax 0.4 mg Cap.sr] 0.4 mg PO DAILY 10/24/19 Allergies/Adverse Reactions: No Known Allergies Allergy (Verified 10/24/19 06:50) Review of Systems ROS unobtainable: Due to mental status Physical Exam Vital Signs: Temp Pulse Resp BP Pulse Ox 97.4 F 66 17 105/69 97 11/05/19 07:41 11/05/19 07:41 11/05/19 07:41 11/05/19 07:41 11/05/19 07:41 Intake & Output 11/04/19 11/05/19 11/06/19 06:59 06:59 06:59 Intake Total 760 736 Output Total 535 1250 Balance 225 -514 Weight 115.3 kg 116 kg General appearance: PRESENT: no acute distress, well-developed, well-nourished Head exam: PRESENT: atraumatic, normocephalic Eye exam: PRESENT: conjunctiva pink, EOMI, PERRLA. ABSENT: scleral icterus Ear exam: PRESENT: normal external ear exam Mouth exam: PRESENT: moist, tongue midline Neck exam: ABSENT: carotid bruit, JVD, lymphadenopathy, thyromegaly Respiratory exam: PRESENT: clear to auscultation vasile. ABSENT: rales, rhonchi, wheezes Cardiovascular exam: PRESENT: RRR. ABSENT: diastolic murmur, rubs, systolic murmur Pulses: PRESENT: normal dorsalis pedis pul Vascular exam: PRESENT: normal capillary refill GI/Abdominal exam: PRESENT: normal bowel sounds, soft. ABSENT: distended, guarding, mass, organolmegaly, rebound, tenderness Rectal exam: PRESENT: deferred Extremities exam: PRESENT: full ROM. ABSENT: calf tenderness, clubbing, pedal edema Neurological exam: PRESENT: alert, awake, oriented to person, oriented to place, oriented to time, oriented to situation, CN II-XII grossly intact. ABSENT: motor sensory deficit Psychiatric exam: PRESENT: appropriate affect, normal mood. ABSENT: homicidal ideation, suicidal ideation Skin exam: PRESENT: dry, intact, warm. ABSENT: cyanosis, rash Results Laboratory Results: 11/05/19 04:40 11/05/19 04:40 WBC 16.0 H RBC 4.09 L Hgb 9.6 L Hct 31.1 L MCV 76 L MCH 23.4 L MCHC 30.7 L RDW 26.3 H Plt Count 70 L Seg Neutrophils % Not Reportable 10/24/19 10/27/19 11/01/19 06:41 03:45 07:30 Creatine Kinase < 20 L CK-MB (CK-2) Troponin I 0.406 0.162 11/02/19 11/02/19 11/02/19 03:56 04:30 08:20 Creatine Kinase 22 L 26 L CK-MB (CK-2) 2.33 Troponin I 0.123 11/02/19 11/02/19 11/02/19 09:15 16:45 16:45 Creatine Kinase 45 L CK-MB (CK-2) 2.25 2.18 Troponin I 0.149 0.127 Impressions: Ankle X-Ray 10/24/19 07:04 IMPRESSION: 1. Degenerative changes of the left ankle and midfoot. 2. Diffuse soft tissue swelling surrounding the left ankle. 3. No definite radiographic findings to suggest osteomyelitis. Foot X-Ray 10/24/19 07:05 IMPRESSION: 1. No definite acute osseous abnormality or definite findings to suggest acute osteomyelitis. 2. Degenerative changes of the midfoot and hindfoot. 3. Diffuse soft tissue swelling surrounding the left foot. There are questionable 1 cm soft tissue masses along the dorsal aspect of the left foot best appreciated on the lateral projection. Chest CT 10/26/19 00:00 IMPRESSION: CARDIOMEGALY. MODERATELY LARGE BILATERAL PLEURAL EFFUSIONS. BILATERAL LOWER LOBE AIRSPACE DISEASE MOST LIKELY DUE TO COMPRESSIVE ATELECTASIS. SUPERIMPOSED INFECTION MAY BE POSSIBLE. Lower Extremity CT 10/26/19 00:00 IMPRESSION: DIFFUSE SOFT TISSUE EDEMA WHICH COULD BE DUE TO CELLULITIS AND UNDERLYING SOFT TISSUE INFECTION. NO DISCRETE ABSCESS DEMONSTRATED. Abdomen/Pelvis CT 10/28/19 00:00 IMPRESSION: 1. [id number]-[id number] bilateral effusions, right greater than left, with associated basilar atelectasis. 2. Small volume ascites with anasarca. No evidence of focal drainable abscess or other acute intra-abdominal/pelvic process. 3. Colonic diverticulosis. 4. Indeterminate density 4.2 cm renal lesion, likely proteinaceous cyst. Modified Barium Swallow 10/28/19 00:00 IMPRESSION: LARYNGEAL PENETRATION WITH RESIDUALS, HOWEVER NO DEFINITE ASPIRATION IDENTIFIED. PLEASE SEE SPEECH PATHOLOGIST REPORT FOR OTHER FINDINGS A ND RECOMMENDATIONS. Renal Ultrasound 10/28/19 00:00 IMPRESSION: 1. No urinary obstruction or suspicious mass. Other findings as above. Abdomen Ultrasound 11/02/19 00:00 IMPRESSION: No biliary ductal dilatation. No gallstones. Moderate right upper quadrant ascites Chest X-Ray 11/03/19 00:00 IMPRESSION: Bibasilar opacities, mildly worsened on the right. Grossly stable [id number] bilateral effusions and enlarged cardiac silhouette. Assessment & Plan - Diagnosis (1) Thrombocytopenia Is this a current diagnosis for this admission?: Yes Plan: Probable thrombocytopenia of sepsis versus DIC. At this point not actively bleeding. Will improve if underlying condition improves. But I suspect given the fact that he is functionally declining mentally and physically it may continue to be a problem. No intervention needed as of now, would transfuse platelets if it gets under 10 or patient actively bleeding. - Time Time Spent: Greater than 70 Minutes - Inpatient Certification Based on my medical assessment, after consideration of the patient's comorbidities, presenting symptoms, or acuity I expect that the services needed warrant INPATIENT care.: Yes I certify that my determination is in accordance with my understanding of Medicare's requirements for reasonable and necessary INPATIENT services [42 CFR 412.3e].: Yes
[2019-11-05 09:46] LABS: ALBUMIN 2.7 g/dL (3.5-5.0); ALKALINE PHOSPHATASE 118 U/L (38-126); ANION GAP 8 (5-19); ASPARTATE AMINO TRANSFERASE 58 U/L (17-59); BILIRUBIN,DIRECT 10.2 mg/dL (0.0-0.4); BLOOD UREA NITROGEN 66 mg/dL (7-20); CALCIUM 8.6 mg/dL (8.4-10.2); CARBON DIOXIDE 34 mmol/L (22-30); CHLORIDE 104 mmol/L (98-107); GLUCOSE 153 mg/dL (75-110); POTASSIUM 3.9 mmol/L (3.6-5.0); TOTAL PROTEIN 5.7 g/dL (6.3-8.2)
[2019-11-05] MEDS: TAMSULOSIN HCL 0.4 MG CAP.SR.24H PO SCH (10:18)
[2019-11-05] MEDS: HEPARIN SOD (PORCINE) 5,000 UNIT/ML 1 ML VIAL SUBCUT SCH (10:18)
[2019-11-05] MEDS: METOPROLOL TARTRATE 25 MG TABLET PO SCH (10:18)
[2019-11-05] MEDS: POTASSIUM CHLORIDE 20 MEQ PACKET PO SCH (10:19)
[2019-11-05] MEDS: MIDODRINE HCL 5 MG TABLET PO SCH ×2 (10:19→13:15)
[2019-11-05] MEDS: FUROSEMIDE INJ/PF 20 MG/2 ML SDV IV SCH (11:24)
[2019-11-05] MEDS: MUPIROCIN 2% OINTMENT 22 GM TP SCH ×2 (13:18→17:50)
[2019-11-05] MEDS: MORPHINE SULFATE 10 MG/ML INJ IV PRN ×2 (16:13→18:04)
[2019-11-05] MEDS: LORAZEPAM INJ 2 MG/1 ML VIAL IV PRN ×2 (16:14→18:05)
--- NOTE | 2019-11-05 17:58 | ADVANCED CARE ---
- Diagnosis (1) Bacteremia Diagnosis Current: Yes (2) Encephalopathy Diagnosis Current: Yes (3) HCAP (healthcare-associated pneumonia) Diagnosis Current: Yes (4) Hyperbilirubinemia Diagnosis Current: Yes (5) Infected stasis ulcer of lower extremity Diagnosis Current: Yes (6) Leg edema Diagnosis Current: Yes (7) Oropharyngeal dysphagia Diagnosis Current: Yes (8) Persistent atrial fibrillation with RVR Diagnosis Current: Yes Resuscitation Status: Comfort Measures Only Discussion: Previous addending had an extensive discussion with family and patient status was changed to DNR yesterday. Please referr to previous attending note. 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 I had a discussion with patient family myself and they did confirm to me that they would like for patient to be transitioned to comfort measures. Care Planning Goals: Comfort measures only. Time Spent: 20
--- NOTE | 2019-11-05 18:08 | PDOC PROGRESS REPORT ---
Subjective Progress Note for:: 11/05/19 Subjective:: Acute events overnight. Patient family has decided to transition patient care to comfort measures only. Reason For Visit: SEPSIS,LEFT LOWER EXTREMITY WOUND, HISTORY OF Physical Exam Vital Signs: Temp Pulse Resp BP Pulse Ox 97.3 F 42 L 16 105/59 L 100 11/05/19 11:42 11/05/19 11:42 11/05/19 11:42 11/05/19 11:42 11/05/19 11:42 Intake & Output 11/04/19 11/05/19 11/06/19 06:59 06:59 06:59 Intake Total 760 736 0 Output Total 535 1250 200 Balance 225 -514 -200 Weight 115.3 kg 116 kg General appearance: PRESENT: no acute distress, well-developed, well-nourished Head exam: PRESENT: atraumatic, normocephalic Respiratory exam: PRESENT: clear to auscultation vasile. ABSENT: rales, rhonchi, wheezes Cardiovascular exam: PRESENT: RRR. ABSENT: diastolic murmur, rubs, systolic murmur Neurological exam: PRESENT: altered Results Laboratory Results: 11/05/19 04:40 11/05/19 04:40 11/05/19 11/05/19 04:40 04:40 WBC 16.0 H RBC 4.09 L Hgb 9.6 L Hct 31.1 L MCV 76 L MCH 23.4 L MCHC 30.7 L RDW 26.3 H Plt Count 70 L Seg Neutrophils % Not Reportable Sodium 146.4 H Potassium 3.9 Chloride 104 Carbon Dioxide 34 H Anion Gap 8 BUN 66 H Creatinine 1.83 H Est GFR ( Amer) 43 L Glucose 153 H Calcium 8.6 Total Bilirubin 13.0 H AST 58 Alkaline Phosphatase 118 Total Protein 5.7 L Albumin 2.7 L 10/24/19 10/27/19 11/01/19 06:41 03:45 07:30 Creatine Kinase < 20 L CK-MB (CK-2) Troponin I 0.406 0.162 11/02/19 11/02/19 11/02/19 03:56 04:30 08:20 Creatine Kinase 22 L 26 L CK-MB (CK-2) 2.33 Troponin I 0.123 11/02/19 11/02/19 11/02/19 09:15 16:45 16:45 Creatine Kinase 45 L CK-MB (CK-2) 2.25 2.18 Troponin I 0.149 0.127 Impressions: Ankle X-Ray 10/24/19 07:04 IMPRESSION: 1. Degenerative changes of the left ankle and midfoot. 2. Diffuse soft tissue swelling surrounding the left ankle. 3. No definite radiographic findings to suggest osteomyelitis. Foot X-Ray 10/24/19 07:05 IMPRESSION: 1. No definite acute osseous abnormality or definite findings to suggest acute osteomyelitis. 2. Degenerative changes of the midfoot and hindfoot. 3. Diffuse soft tissue swelling surrounding the left foot. There are questionable 1 cm soft tissue masses along the dorsal aspect of the left foot best appreciated on the lateral projection. Chest CT 10/26/19 00:00 IMPRESSION: CARDIOMEGALY. MODERATELY LARGE BILATERAL PLEURAL EFFUSIONS. BILATERAL LOWER LOBE AIRSPACE DISEASE MOST LIKELY DUE TO COMPRESSIVE ATELECTASIS. SUPERIMPOSED INFECTION MAY BE POSSIBLE. Lower Extremity CT 10/26/19 00:00 IMPRESSION: DIFFUSE SOFT TISSUE EDEMA WHICH COULD BE DUE TO CELLULITIS AND UNDERLYING SOFT TISSUE INFECTION. NO DISCRETE ABSCESS DEMONSTRATED. Abdomen/Pelvis CT 10/28/19 00:00 IMPRESSION: 1. Ojnm-[id number] bilateral effusions, right greater than left, with associated basilar atelectasis. 2. Small volume ascites with anasarca. No evidence of focal drainable abscess or other acute intra-abdominal/pelvic process. 3. Colonic diverticulosis. 4. Indeterminate density 4.2 cm renal lesion, likely proteinaceous cyst. Modified Barium Swallow 10/28/19 00:00 IMPRESSION: LARYNGEAL PENETRATION WITH RESIDUALS, HOWEVER NO DEFINITE ASPIRATION IDENTIFIED. PLEASE SEE SPEECH PATHOLOGIST REPORT FOR OTHER FINDINGS AND RECOMMENDATIONS. Renal Ultrasound 10/28/19 00:00 IMPRESSION: 1. No urinary obstruction or suspicious mass. Other findings as above. Abdomen Ultrasound 11/02/19 00:00 IMPRESSION: No biliary ductal dilatation. No gallstones. Moderate right upper quadrant ascites Chest X-Ray 11/03/19 00:00 IMPRESSION: Bibasilar opacities, mildly worsened on the right. Grossly stable [id number] bilateral effusions and enlarged cardiac silhouette. Assessment and Plan - Diagnosis (1) Comfort measures only status Is this a current diagnosis for this admission?: Yes Plan: As per patient's family request patient is transition to comfort measures only as of 11/05/2019. (2) Bacteremia Is this a current diagnosis for this admission?: Yes (3) Encephalopathy Is this a current diagnosis for this admission?: Yes (4) HCAP (healthcare-associated pneumonia) Is this a current diagnosis for this admission?: Yes (5) Hyperbilirubinemia Is this a current diagnosis for this admission?: Yes (6) Infected stasis ulcer of lower extremity Is this a current diagnosis for this admission?: Yes (7) Leg edema Is this a current diagnosis for this admission?: Yes (8) Oropharyngeal dysphagia Is this a current diagnosis for this admission?: Yes (9) Persistent atrial fibrillation with RVR Is this a current diagnosis for this admission?: Yes - Plan Summary Summary: Made DNR DNI Ultimately patient has several medical conditions that are quite active. These include bacteremia, infected leg wounds, recent septic shock, hypotension maintained on p.o. pressor midodrine and stress dose steroids, Pneumonia, dysphagia with poor food intake and increased risk for aspiration which could lead to more pneumonias, atrial fibrillation often going into RVR.currently rate is controlled, worsening hyperbilirubinemia/cholestasis and encephalopathy. Ultimately, given patient's significant physically debilitated state in combination with all these issues, patient could likely be better served by less aggressive medical therapy and more of palliative care. I have consulted palliative care and will also have discussions with patient's family regarding this.
[2019-11-05 20:43] VITALS: BP 54/29
[2019-11-06] MEDS: HEPARIN SOD (PORCINE) 5,000 UNIT/ML 1 ML VIAL SUBCUT SCH (00:52)
[2019-11-06 12:32] LABS: PATH REVIEW PATHOLOGIST REVIEWED
--- NOTE | 2019-11-08 11:58 | Death Summary ---
Summary Date : 11/06/19 Autopsy: No Resuscitation Status: Comfort Measures Only - Final Diagnosis (1) Comfort measures only status Is this a current diagnosis for this admission?: Yes (2) Bacteremia Is this a current diagnosis for this admission?: Yes (3) Encephalopathy Is this a current diagnosis for this admission?: Yes (4) HCAP (healthcare-associated pneumonia) Is this a current diagnosis for this admission?: Yes (5) Hyperbilirubinemia Is this a current diagnosis for this admission?: Yes (6) Infected stasis ulcer of lower extremity Is this a current diagnosis for this admission?: Yes (7) Leg edema Is this a current diagnosis for this admission?: Yes (8) Oropharyngeal dysphagia Is this a current diagnosis for this admission?: Yes (9) Persistent atrial fibrillation with RVR Is this a current diagnosis for this admission?: Yes Hospital Course:: Patient presented to the emergency room this morning around 0630 with what appears to be a blood pressure of 103/92, ever within 2 hours his pressure dropped down to 80/80,, got as low as 62/47 then back up to 76/52, has stayed in about that range. O2 sat has remained good at 100% on room air pulse is approximately 80 respirations 20 Patient was brought in by EMS for left leg pain.. WBCs 18,300, hemoglobin 11.7 hematocrit 38.7 platelets 259,000 PT 21.9 INR 1.88 Potassium slightly high at 5.5 BUN of 50 creatinine 1.66 GFR 39, Lactic acid on arrival 7.3 follow-up five-point 4 repeat 5.2 most recently at 1300 hrs. 4.7 Urinalysis shows a small amount of leukocytes Which could be pleural fluid versus atelectasis versus a new pneumonia X-ray of the left ankle shows soft tissue swelling but no osteomyelitis X-ray of the left foot shows soft tissue swelling no osteomyelitis and a possible questionable 1 cm soft tissue mass Due to patient's apparent sepsis, hypotension, complaint of severe left leg p ain, patient has been accepted by ICU graciously, by insurance licensing supervisor Dr. Sinclair. Patient has had CT scan of the left lower extremity ordered without contrast, this and arterial Dopplers of the left lower leg, Levophed has been ordered for his hypotension, and Vancomycin for his apparent sepsis, well as IV fluids. Patient is sitting up in bed talking complaining of his left leg pain and stable for movement to the ICU. Incidentally there was a question of compartment syndrome to the left lower extremity the patient's long-term carbider, surgery was consulted about this and they deferred to orthopedics, orthopedics stated that pressure ends will need to be taken before he would see the patient for possible compartment syndrome. Trackless Trolley Driver has ordered appropriate studies of the left lower extremity. (1) Comfort measures only status Previous addending had an extensive discussion with family and patient status was changed to DNR yesterday. Please referr to previous attending note. 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 I had a discussion with patient family myself and they did confirm to me that they would like for patient to be transitioned to comfort measures. (1) Infected stasis ulcer of lower extremity Likely source of bacteremia as wound cultures also grew MSSA and Pseudomonas. Was started on wound dressings frequently, leg elevation and topical mupirocin (2) Bacteremia Blood cultures positive for Pseudomonas and MSSA Of note, last blood culture when patient was received transferred to [facility] was from 10/27/2019 which was still positive for MSSA but was the first cultures negative for Pseudomonas. Patient will require 10 days of antibiotic treatment for Pseudomonas bacteremia since negative BCx on 10/27 and 14 days therapy for MSSA bacteremia since first negative on 11/01/19. Avoided p.o. fluoroquinolones given patient's significant debility and age putting him at high risk for tendinopathy. Was contineud on Zosyn until 11/06/19 then change to PO abx to complete treatment of MSSA till 11/15/2019 (3) Persistent atrial fibrillation with RVR Rate controlled at the moment. Continue Eliquis and low-dose metoprolol (4) Hypotension Initially suspected to be septic shock Patient has been on stress dose hydrocortisone since 10/27/2019 and midodrine in the ICU. Uncertain if this was for just for septic shock or concern for adrenal insufficiency. No cortisol level done prior. Continue Midodrine Was started on stress hydrocortisone given persistent of soft blood pressures and wean later as blood pressure permits (5) HCAP (healthcare-associated pneumonia) Patient received broad-spectrum antibiotics for over 7 days in the ICU for treatment of this (6) Hyperbilirubinemia Patient has worsening cholestasis with hyperbilirubinemia predominantly direct bilirubin ruq us showing no evidence of biliary tract obstruction. Dr. Perez consulted Transaminases are normal (7) Leg edema Cautious diuresis given soft blood pressures and A. fib. Lasix twice a day. Monitor blood pressure and electrolytes. (8) Oropharyngeal dysphagia Noted on MBBS with penetration but no clear aspiration. Patient only eating bites of his food. We will continue to encourage p.o. intake. (9) Encephalopathy Likely secondary to multiple comorbid active medical conditions Continued monitoring mental status and treat his active issues. Palliative care consulted
== END 2019-11-06 01:44 | DRG 871 ==
LOC: ER 06:24 → EH 10:27 → ICU 14:45 → 3N 11-01 13:00
PROVIDERS: ADMIT Hospitalist; ATTEND Internal Medicine
PROC: 05JY3ZZ Inspection of Upper Vein, Percutaneous Approach (ICD-10-PCS; 2019-10-24)
PROC: 5A09457 Assistance with Respiratory Ventilation, 24-96 Consecutive Hours, Continuous Positive Airway Pressure (ICD-10-PCS; principal; 2019-11-02)
DX: A41.52 Sepsis due to Pseudomonas (principal); J18.9 Pneumonia, unspecified organism; R65.21 Severe sepsis with septic shock; I48.19 Other persistent atrial fibrillation; N17.9 Acute kidney failure, unspecified; L03.116 Cellulitis of left lower limb; L03.115 Cellulitis of right lower limb; E87.1 Hypo-osmolality and hyponatremia; I48.91 Unspecified atrial fibrillation; F03.90 Unspecified dementia, unspecified severity, without behavioral disturbance, psychotic disturbance, mood disturbance, and anxiety; Z51.5 Encounter for palliative care; Z66 Do not resuscitate; Y95 Nosocomial condition; I83.008 Varicose veins of unspecified lower extremity with ulcer other part of lower leg; R13.12 Dysphagia, oropharyngeal phase; D69.59 Other secondary thrombocytopenia; I95.9 Hypotension, unspecified; T68.XXXA Hypothermia, initial encounter; I10 Essential (primary) hypertension; I25.2 Old myocardial infarction; Z86.711 Personal history of pulmonary embolism; Z78.1 Physical restraint status; Z79.899 Other long term (current) drug therapy; Z79.01 Long term (current) use of anticoagulants
CPT/HCPCS: 36415; 36556; 36600; 36620; 71045; 71250; 74176; 74230; 76705; 76770; 80048; 80053; 80076; 80202; 81001; 82550; 82553; 82803; 82962; 83605; 83735; 84100; 84443; 84484; 85025; 85610; 87040; 87070; 87077; 87086; 87088; 87150; 87186; 87205; 93005; 93010; 93925; 94660; 96361; 96365; 99291; C1751; C1758; J0282; J1170; J1642; J1720; J1815; J1940; J2020; J2060; J2185; J2270; J2370; J2543; J2930; J3370; J3480; J3490; J7030; J7050; J7060; J7120; P9047